=== PATIENT | male | born 1955 | race Caucasian/White ===

== ENCOUNTER 2016-12-10 15:44 | Outpatient (CLI) | payer MEDICAID ==
[2016-12-10 13:17] LABS: ALBUMIN/GLOBULIN RATIO 1.1 (1.0-2.2); BILIRUBIN,TOTAL 0.6 mg/dL (0.2-1.0); CALCIUM 9.3 mg/dL (8.5-10.3); POTASSIUM 5.1 mmol/L (3.5-5.0); TOTAL PROTEIN 6.8 g/dL (6.7-8.2)
[2016-12-10 14:56] LABS: HEMOGLOBIN A1C 2.33 g/dL
== END 2016-12-10 15:45 | disposition home or self-care (01) ==
LOC: LAB.N 15:44
PROVIDERS: ATTEND Nurse Practitioner Gerontology
DX: E11.9 Type 2 diabetes mellitus without complications (principal)
CPT/HCPCS: 36415; 80053; 83036

== ENCOUNTER 2017-03-11 08:00 | Outpatient (CLI) | payer MEDICAID ==
[2017-03-11 19:24] LABS: BASOPHILS # (AUTO) 0.1 10^3/uL (0.0-0.1); BASOPHILS % (AUTO) 1.2 %; EOSINOPHILS # (AUTO) 0.2 10^3/uL (0.0-0.7); EOSINOPHILS % (AUTO) 2.7 %; HGB - HEMOGLOBIN 15.1 g/dL (14.0-18.0); LYMPHOCYTES # (AUTO) 1.4 10^3/uL (1.5-3.5); LYMPHOCYTES % (AUTO) 24.3 %; MEAN CORPUSCULAR HEMOGLOBIN 31.7 pg (27.0-31.0); MEAN CORPUSCULAR HGB CONC 32.5 g/dL (32.0-36.0); MEAN CORPUSCULAR VOLUME 97.7 fL (80.0-94.0); MEAN PLATELET VOLUME 8.4 fL (7.4-11.4); MONOCYTES # (AUTO) 0.3 10^3/uL (0.0-1.0); MONOCYTES % (AUTO) 5.7 %; NEUTROPHILS # (AUTO) 3.8 10^3/uL (1.5-6.6); NEUTROPHILS % (AUTO) 66.1 %; PLT - PLATELET COUNT 287 10^3/uL (130-450); RED BLOOD COUNT 4.76 10^6/uL (4.70-6.10); WHITE BLOOD COUNT 5.7 x10^3/uL (4.8-10.8)
[2017-03-11 19:34] LABS: HB2 TOTAL 16.2 g/dL; HEMOGLOBIN A1C 1.27 g/dL; HEMOGLOBIN A1C % 9.3 % (4.6-6.2)
[2017-03-11 20:45] LABS: ALBUMIN/GLOBULIN RATIO 1.2 (1.0-2.2); ALKALINE PHOSPHATASE 66 IU/L (42-121); ALT ALANINE AMINOTRANSFERASE 20 IU/L (10-60); AST ASPARTATE AMINOTRANSFERASE 21 IU/L (10-42); BILIRUBIN,TOTAL 0.3 mg/dL (0.2-1.0); BUN - BLOOD UREA NITROGEN 14 mg/dL (6-20); CALCIUM 9.2 mg/dL (8.5-10.3); CARBON DIOXIDE - CO2 26 mmol/L (21-32); CHLORIDE 106 mmol/L (101-111); CHOL/HDL RATIO 2.5 (<5.0); CHOLESTEROL 160 mg/dL; CREATININE 0.8 mg/dL (0.6-1.2); GFR - MDRD 98 (>89); HDL CHOLESTEROL 63 mg/dL; LDL CHOLESTEROL,CALCULATED 86 mg/dL; LDL/HDL RATIO 1.4 (<3.6); SODIUM 138 mmol/L (135-145); TOTAL PROTEIN 7.3 g/dL (6.7-8.2); VLDL CHOLESTEROL 11 mg/dL
[2017-03-11 20:47] LABS: GLUCOSE 47 mg/dL (70-100)
== END 2017-03-11 08:01 | disposition home or self-care (01) ==
LOC: LAB.N 08:00
PROVIDERS: ATTEND Nurse Practitioner Gerontology
DX: I10 Essential (primary) hypertension (principal); E11.9 Type 2 diabetes mellitus without complications; E78.5 Hyperlipidemia, unspecified
CPT/HCPCS: 36415; 80050; 80061; 83036; 83721

== ENCOUNTER 2017-06-18 10:03 | Outpatient (CLI) | payer MEDICAID ==
[2017-06-18 13:36] LABS: HB2 TOTAL 16.8 g/dL; HEMOGLOBIN A1C 1.2 g/dL; HEMOGLOBIN A1C % 8.7 % (4.6-6.2)
== END 2017-06-18 10:04 | disposition home or self-care (01) ==
LOC: LAB.N 10:03
PROVIDERS: ATTEND Nurse Practitioner Gerontology
DX: E11.9 Type 2 diabetes mellitus without complications (principal)
CPT/HCPCS: 36415; 83036

== ENCOUNTER 2019-05-02 11:00 | Outpatient (CLI) | payer MEDICAID ==
[2019-05-02 18:42] LABS: BASOPHILS # (AUTO) 0.1 10^3/uL (0.0-0.1); BASOPHILS % (AUTO) 0.8 %; EOSINOPHILS # (AUTO) 0.3 10^3/uL (0.0-0.7); EOSINOPHILS % (AUTO) 3.3 %; HGB - HEMOGLOBIN 15.7 g/dL (14.0-18.0); LYMPHOCYTES # (AUTO) 1.9 10^3/uL (1.5-3.5); LYMPHOCYTES % (AUTO) 22.5 %; MEAN CORPUSCULAR HEMOGLOBIN 31.7 pg (27.0-31.0); MEAN CORPUSCULAR HGB CONC 32.5 g/dL (32.0-36.0); MEAN CORPUSCULAR VOLUME 97.6 fL (80.0-94.0); MEAN PLATELET VOLUME 9.6 fL (7.4-11.4); MONOCYTES # (AUTO) 0.6 10^3/uL (0.0-1.0); MONOCYTES % (AUTO) 6.7 %; NEUTROPHILS # (AUTO) 5.7 10^3/uL (1.5-6.6); NEUTROPHILS % (AUTO) 66.5 %; PLT - PLATELET COUNT 307 10^3/uL (130-450); RED BLOOD COUNT 4.95 10^6/uL (4.70-6.10); RED CELL DISTRIBUTION WIDTH 14.1 % (12.0-15.0); WHITE BLOOD COUNT 8.6 x10^3/uL (4.8-10.8)
[2019-05-02 19:16] LABS: ALBUMIN 4.2 g/dL (3.2-5.5); ALBUMIN/GLOBULIN RATIO 1.2 (1.0-2.2); BILIRUBIN,TOTAL 0.6 mg/dL (0.2-1.0); CALCIUM 9.3 mg/dL (8.5-10.3); CREATININE 0.7 mg/dL (0.6-1.2); TOTAL PROTEIN 7.6 g/dL (6.7-8.2)
[2019-05-02 19:18] LABS: HB2 TOTAL 16.7 g/dL; HEMOGLOBIN A1C 1.08 g/dL; HEMOGLOBIN A1C % 8.1 % (4.6-6.2)
== END 2019-05-02 23:59 | disposition home or self-care (01) ==
LOC: LAB.N 11:00
PROVIDERS: ATTEND Nurse Practitioner Gerontology
DX: I10 Essential (primary) hypertension (principal); E11.9 Type 2 diabetes mellitus without complications
CPT/HCPCS: 36415; 80053; 83036; 85025

== ENCOUNTER 2020-03-12 16:31 | Outpatient (CLI) | payer MEDICARE, MEDICAID | END 2020-03-12 16:32 | disposition critical access hospital (66) | LOC: EMS 16:31 | PROVIDERS: ATTEND Surgery | DX: F32.9 Major depressive disorder, single episode, unspecified (principal) | CPT/HCPCS: A0425; A0429 ==

== ENCOUNTER 2020-03-12 16:44 | Emergency (ER) | payer MEDICARE, MEDICAID ==
--- NOTE | 2020-03-12 17:03 | ED Physician Documentation ---
History of Present Illness - Stated complaint Stated Complaint: MHE - Chief complaint Chief Complaint: MHE - Additonal information Additional information: 64-year-old male was brought into the emergency department for thoughts of suicide. He reports to me that for the duration of the pandemic he has been socially isolated. He is also under the threat of eviction from his landlord. He was speaking with a traffic observer today and she asked him if he was in any danger of harming himself. He reports that he told her that about 2 weeks ago he considered hanging himself from a beam with a belt. She encouraged him to seek mental health services. He spoke with nursing staff at the [facility] and they called 911 thus he is transported here. He denies that he wants to harm himself right now but he is eager to get mental health support and services. He endorses daily cannabis use. He does have a longstanding history of depression however no hospitalizations. He was previously taking amitriptyline and buspirone but failed to get the meds refilled about 6 months ago. Patient does report to this provider history of diabetes. Previously on Lantus. He has not taken for about 6 months. He reports to me that he simply does not care anymore. Review of Systems Constitutional: reports: Reviewed and negative Eyes: reports: Reviewed and negative Ears: reports: Reviewed and negative Nose: reports: Reviewed and negative Throat: reports: Reviewed and negative Cardiac: reports: Reviewed and negative Respiratory: reports: Reviewed and negative GI: reports: Reviewed and negative : reports: Reviewed and negative Skin: reports: Reviewed and negative Musculoskeletal: reports: Reviewed and negative Neurologic: reports: Reviewed and negative Psychiatric: reports: Depressed, Suicidal, Anxiety. denies: Homicidal, Hallucinations, Delusions, Insomnia PD PAST MEDICAL HISTORY - Present Medications Home Medications: Ambulatory Orders Medication Instructions Recorded Confirmed No Known Home Medications 03/12/20 03/12/20 - Allergies Allergies/Adverse Reactions: Allergies Allergy/AdvReac Type Severity Reaction Status Date / Time No Known Drug Allergies Allergy Verified 03/12/20 16:56 PD ED PE EXPANDED - General General: Alert, No acute distress, Well developed/nourished - HEENT HEENT: Atraumatic, PERRL - Neck Neck: Supple w/out meningeal sx. No: Adenopathy - Cardiac Cardiac: Regular Rate, Regular Rhythm, Radial strong equal, Pedal strong equal, Cap refill < 2 sec - Respiratory Respiratory: Clear to ausultation anil. No: Distress, Labored - Abdomen Abdomen: Normal Bowel sounds. No: Tender to palpation - Derm Derm: Normal color, Warm and dry - Extremities Extremities: Normal. No: Deformity, Tenderness - Neuro Neuro: Alert and Oriented X 3, Nystagmus, Cerebellar nl, Normal gait, Normal finger nose. No: Confused, Disoriented, Weakness - GCS Eye Opening: Spontaneous Motor: Obeys Commands Verbal: Oriented Total: 15 - Psych Psych: Depressed, Anxious. No: Suicidal, Poor eye contact, Non verbal, Agitated, Combative Results - Vitals Vitals: Vital Signs - 24 hr 03/12/20 03/12/20 16:50 17:15 Temperature 36.4 C L Heart Rate 90 86 Respiratory 18 16 Rate Blood Pressure 170/100 H 169/97 H O2 Saturation 99 97 Oxygen O2 Source Room air - Labs Labs: Laboratory Tests 03/12/20 03/12/20 03/12/20 17:01 17:10 17:10 WBC 7.5 RBC 4.98 Hgb 16.0 Hct 48.3 MCV 97.0 H MCH 32.1 H MCHC 33.1 RDW 13.2 Plt Count 270 MPV 9.1 Neut # (Auto) 5.8 Lymph # (Auto) 1.1 L Garrard # (Auto) 0.5 Eos # (Auto) 0.1 Baso # (Auto) 0.1 Absolute Nucleated RBC 0.00 Nucleated RBC % 0.0 Sodium 137 Potassium 3.5 Chloride 100 L Carbon Dioxide 19 L Anion Gap 18.0 H BUN 10 Creatinine 0.8 Estimated GFR (MDRD) 97 Glucose 256 H Calcium 9.4 Total Bilirubin 1.7 H AST 13 ALT 13 Alkaline Phosphatase 77 Total Protein 7.3 Albumin 4.1 Globulin 3.2 Albumin/Globulin Ratio 1.3 Lipase 75 H TSH Urine Color YELLOW Urine Clarity CLEAR Urine pH 5.5 Ur Specific Syl[place] >=1.030 H Urine Protein 30 H Urine Glucose (UA) >=1000 H Urine Ketones >=80 H Urine Occult Blood TRACE-INTA Urine Nitrite NEGATIVE Urine Bilirubin NEGATIVE Urine Urobilinogen 0.2 (NORMAL) Ur Leukocyte Esterase NEGATIVE Urine RBC None Seen Urine WBC 0-3 Ur Squamous Epith Cells RARE Squamous Urine Bacteria Rare Urine Casts 0-2 Course Granular Ur Microscopic Review INDICATED Urine Culture Comments NOT INDICATED Salicylates < 6.0 Urine Opiates Screen NEGATIVE Ur Oxycodone Screen NEGATIVE Urine Methadone Screen NEGATIVE Ur Propoxyphene Screen NEGATIVE Acetaminophen < 10 L Ur Barbiturates Screen NEGATIVE Ur Tricyclics Screen NEGATIVE Ur Phencyclidine Scrn NEGATIVE Ur Amphetamine Screen NEGATIVE U Methamphetamines Scrn NEGATIVE U Benzodiazepines Scrn NEGATIVE Urine Cocaine Screen NEGATIVE U Cannabinoids Screen POSITIVE H Ethyl Alcohol < 5.0 03/12/20 17:10 WBC RBC Hgb Hct MCV MCH MCHC RDW Plt Count MPV Neut # (Auto) Lymph # (Auto) Garrard # (Auto) Eos # (Auto) Baso # (Auto) Absolute Nucleated RBC Nucleated RBC % Sodium Potassium Chloride Carbon Dioxide Anion Gap BUN Creatinine Estimated GFR (MDRD) Glucose Calcium Total Bilirubin AST ALT Alkaline Phosphatase Total Protein Albumin Globulin Albumin/Globulin Ratio Lipase TSH 2.03 Urine Color Urine Clarity Urine pH Ur Specific Syl[place] Urine Protein Urine Glucose (UA) Urine Ketones Urine Occult Blood Urine Nitrite Urine Bilirubin Urine Urobilinogen Ur Leukocyte Esterase Urine RBC Urine WBC Ur Squamous Epith Cells Urine Bacteria Urine Casts Ur Microscopic Review Urine Culture Comments Salicylates Urine Opiates Screen Ur Oxycodone Screen Urine Methadone Screen Ur Propoxyphene Screen Acetaminophen Ur Barbiturates Screen Ur Tricyclics Screen Ur Phencyclidine Scrn Ur Amphetamine Screen U Methamphetamines Scrn U Benzodiazepines Scrn Urine Cocaine Screen U Cannabinoids Screen Ethyl Alcohol - Rads (name of study) CXR Radiology: Final report received (no acute cardiopulmonary process) PD MEDICAL DECISION MAKING - ED course Complexity details: reviewed results, re-evaluated patient, considered differential, d/w patient ED course: 64-year-old male presents to the emergency department via EMS for evaluation of suicidal thoughts. He has been battling a landlord eviction issue during the course of the pandemic and told his traffic observer that a few weeks ago he considered hanging himself with a belt from a beam. At this current moment patient denies that he wants to harm himself but he is eager to seek mental health services. He does have a longstanding history of depression and was previously on buspirone and amitriptyline but has not taking them for nearly 6 months as he failed to get the medications refilled. Patient is also stopped taking his diabetes medications as he simply does not care anymore. 1750: Patient is medically cleared and I will asked for him to be seen by telepsych. I do appreciate the positive cannabis as well as the hyperglycemia. This is consistent with his reported cannabis use as well as the avoidance of diabetes medications. 1929: Telepsych has completed their evaluation. I have spoken with Dr. Bryant. He does not feel that the patient presents an immediate suicidal risk. Does not recommend inpatient psychiatric hospitalization the patient does not desire psychiatric hospitalization and for me easily contracts for safety. He Dr. Bryant feels that the patient would best be served by accessing therapy to discuss his long history of depression but he also would not recommend resuming the buspirone at this time. I discussed the telepsych recommendations with the patient and he at this time feels ready to go home. I did offer him to board overnight in the emergency department to speak with the social science teacher in the morning. The patient reports to me that he is without running water at his apartment but the patient does not want a wait overnight. He does feel hopeful that his legal services will be helpful and helping mitigate the eviction process and get running water back to his apartment. Patient will follow up with his primary care providers at the [facility] to resume his diabetes medications. Though he does have a blood glucose of 256 today he does not present with DKA symptoms. Departure - Departure Disposition: 01 Home, Self Care Clinical Impression: Depression Qualifiers: Depression Type: major depressive disorder Major depression recurrence: unspeci fied whether recurrent Active/Remission status: currently active Major depression episode severity: moderate Qualified Code(s): F32.1 - Major depressive disorder, single episode, moderate Condition: Stable Record reviewed to determine appropriate education?: Yes Instructions: ED Stress React, ED Depression Follow-Up: [facility] [Provider Group] Comments: [facility] continue to follow-up with your legal resources regarding your infection process. It is very important that you also speak with your primary care providers about resuming your diabetes medications. Please continue to discuss your concerns with your traffic observer. They likely have resources to help you with your eviction process If at any point you have a return of thoughts of self-harm or do not feel safe please call 911 or the National suicide prevention Lifeline. National Suicide Prevention Lifeline Talk therapy will go a long way at helping you manage yoru stress, anxiety and depression. But if you ever feel unsafe or think of harming yourself, please return to the ED immediately
[2020-03-12 17:07] LABS: MUDS CUTOFF CONCENTRATIONS CUTOFF CONC BELOW:
[2020-03-12 17:18] LABS: GLUCOSE, URINE (UA) >=1000 mg/dL (NEGATIVE); KETONES,URINE (UA) >=80 mg/dL (NEGATIVE); LEUKOCYTE ESTERASE, URINE NEGATIVE (NEGATIVE); NITRITE,URINE NEGATIVE (NEGATIVE); OCCULT BLOOD,URINE TRACE-INTA (NEGATIVE); PH,URINE 5.5 PH (5.0-7.5); PROTEIN,URINE 30 mg/dL (NEGATIVE); UROBILINOGEN,URINE 0.2 (NORMAL) E.U./dL (NORMAL)
[2020-03-12 17:21] LABS: BASOPHILS # (AUTO) 0.1 10^3/uL (0.0-0.1); BASOPHILS % (AUTO) 0.9 %; EOSINOPHILS # (AUTO) 0.1 10^3/uL (0.0-0.7); EOSINOPHILS % (AUTO) 0.7 %; LYMPHOCYTES # (AUTO) 1.1 10^3/uL (1.5-3.5); MEAN CORPUSCULAR HEMOGLOBIN 32.1 pg (27.0-31.0); MEAN CORPUSCULAR HGB CONC 33.1 g/dL (32.0-36.0); MEAN PLATELET VOLUME 9.1 fL (7.4-11.4); MONOCYTES # (AUTO) 0.5 10^3/uL (0.0-1.0); NEUTROPHILS # (AUTO) 5.8 10^3/uL (1.5-6.6); PLT - PLATELET COUNT 270 10^3/uL (130-450); RED BLOOD COUNT 4.98 10^6/uL (4.70-6.10); RED CELL DISTRIBUTION WIDTH 13.2 % (12.0-15.0); WHITE BLOOD COUNT 7.5 x10^3/uL (4.8-10.8)
[2020-03-12 17:22] LABS: CLARITY,URINE CLEAR (CLEAR)
[2020-03-12 17:25] LABS: BILIRUBIN,URINE NEGATIVE (NEGATIVE); ICTOTEST,URINE NEGATIVE
[2020-03-12 17:28] LABS: AMPHETAMINE SCREEN,URINE NEGATIVE (NEGATIVE); BENZODIAZEPINES SCREEN, URINE NEGATIVE (NEGATIVE); COCAINE SCREEN URINE NEGATIVE (NEGATIVE); METHADONE SCREEN, URINE NEGATIVE (NEGATIVE); METHAMPHETAMINES SCREEN, URINE NEGATIVE (NEGATIVE); OPIATE SCREEN, URINE NEGATIVE (NEGATIVE); OXYCODONE SCREEN, URINE NEGATIVE (NEGATIVE); PROPOXYPHENE SCREEN, URINE NEGATIVE (NEGATIVE); TRICYCLIC ANTIDEPRESSANT,URINE NEGATIVE (NEGATIVE)
[2020-03-12 17:35] LABS: BACTERIA,URINE Rare /HPF (None Seen); RBC,URINE None Seen /HPF (0-5); SQUAMOUS EPITHELIAL CELL,UR RARE Squamous (<= Few)
[2020-03-12 17:36] LABS: CASTS, URINE 0-2 Course Granular /LPF
[2020-03-12 17:37] LABS: ACETAMINOPHEN < 10 ug/mL (10-30); ALBUMIN 4.1 g/dL (3.2-5.5); ALBUMIN/GLOBULIN RATIO 1.3 (1.0-2.2); ALKALINE PHOSPHATASE 77 IU/L (42-121); ALT ALANINE AMINOTRANSFERASE 13 IU/L (10-60); AST ASPARTATE AMINOTRANSFERASE 13 IU/L (10-42); BILIRUBIN,TOTAL 1.7 mg/dL (0.2-1.0); BUN - BLOOD UREA NITROGEN 10 mg/dL (6-20); CALCIUM 9.4 mg/dL (8.5-10.3); CARBON DIOXIDE - CO2 19 mmol/L (21-32); CHLORIDE 100 mmol/L (101-111); CREATININE 0.8 mg/dL (0.6-1.2); GLUCOSE 256 mg/dL (70-100); LIPASE 75 U/L (22-51); SALICYLATE < 6.0 mg/dL; TOTAL PROTEIN 7.3 g/dL (6.7-8.2)
[2020-03-12 21:13] VITALS: BP 137/85
== END 2020-03-12 21:14 | disposition home or self-care (01) ==
LOC: EDUNIT# → ED 16:44
DX: R45.851 Suicidal ideations (principal); F33.1 Major depressive disorder, recurrent, moderate; E11.65 Type 2 diabetes mellitus with hyperglycemia; Z91.128 Patient's intentional underdosing of medication regimen for other reason
CPT/HCPCS: 36415; 80053; 81001; 83690; 84443; 85025; 99283; G0425; 80306; 80307; 80320; 80329; 81003; 87086

== ENCOUNTER 2020-05-08 08:00 | Outpatient (CLI) | payer MEDICARE, MEDICAID ==
[2020-05-08 12:16] LABS: CREATININE,URINE 75.6 mg/dL; MICROALBUM/CREATININE RATIO,UR 134.9 ug/mg (<30.0); MICROALBUMIN,URINE 10.2 mg/dL (0-300.0)
[2020-05-08 12:32] LABS: BASOPHILS % (AUTO) 0.6 %; EOSINOPHILS # (AUTO) 0.1 10^3/uL (0.0-0.7); HGB - HEMOGLOBIN 16.2 g/dL (14.0-18.0); LYMPHOCYTES # (AUTO) 1.3 10^3/uL (1.5-3.5); LYMPHOCYTES % (AUTO) 19.2 %; MEAN CORPUSCULAR HEMOGLOBIN 32.5 pg (27.0-31.0); MEAN CORPUSCULAR HGB CONC 33.1 g/dL (32.0-36.0); MEAN CORPUSCULAR VOLUME 98.2 fL (80.0-94.0); MONOCYTES # (AUTO) 0.6 10^3/uL (0.0-1.0); MONOCYTES % (AUTO) 7.9 %; NEUTROPHILS # (AUTO) 4.9 10^3/uL (1.5-6.6); NEUTROPHILS % (AUTO) 70.9 %; PLT - PLATELET COUNT 226 10^3/uL (130-450); RED BLOOD COUNT 4.99 10^6/uL (4.70-6.10); RED CELL DISTRIBUTION WIDTH 13.3 % (12.0-15.0)
[2020-05-08 12:38] LABS: ESTIMATED AVERAGE GLUCOSE 289 mg/dL (70-100); HEMOGLOBIN A1c% 11.7 % (4.27-6.07)
[2020-05-08 12:44] LABS: ALBUMIN 4.2 g/dL (3.2-5.5); ALBUMIN/GLOBULIN RATIO 1.4 (1.0-2.2); ALKALINE PHOSPHATASE 77 IU/L (42-121); ALT ALANINE AMINOTRANSFERASE 15 IU/L (10-60); AST ASPARTATE AMINOTRANSFERASE 15 IU/L (10-42); BILIRUBIN,TOTAL 0.9 mg/dL (0.2-1.0); BUN - BLOOD UREA NITROGEN 14 mg/dL (6-20); CALCIUM 9.5 mg/dL (8.5-10.3); CARBON DIOXIDE - CO2 26 mmol/L (21-32); CHLORIDE 95 mmol/L (101-111); CHOL/HDL RATIO 6.4 (<5.0); CHOLESTEROL 257 mg/dL; GFR - MDRD 75 (>89); GLUCOSE 303 mg/dL (70-100); HDL CHOLESTEROL 40 mg/dL; LDL CHOLESTEROL,CALCULATED 182 mg/dL; LDL/HDL RATIO 4.6 (<3.6); POTASSIUM 4.8 mmol/L (3.5-5.0); SODIUM 134 mmol/L (135-145); TOTAL PROTEIN 7.3 g/dL (6.7-8.2); TRIGLYCERIDES 173 mg/dL; VLDL CHOLESTEROL 35 mg/dL
[2020-05-08 12:47] LABS: THYROID STIMULATING HORMONE 2.64 uIU/mL (0.34-5.60)
== END 2020-05-08 23:59 | disposition home or self-care (01) ==
LOC: LAB.WCP 08:00
PROVIDERS: ATTEND Nurse Practitioner Family
DX: I10 Essential (primary) hypertension (principal); E11.9 Type 2 diabetes mellitus without complications; E78.5 Hyperlipidemia, unspecified; F41.9 Anxiety disorder, unspecified; F32.9 Major depressive disorder, single episode, unspecified
CPT/HCPCS: 36415; 80053; 80061; 82043; 82570; 83036; 83721; 84443; 85025

== ENCOUNTER 2020-09-02 09:46 | Emergency (ER) | payer MEDICARE, MEDICAID ==
[2020-09-02] MEDS: BUFFERED LIDOCAINE 10 ML SYRINGE IU ONE (11:18)
--- NOTE | 2020-09-02 11:59 | ED Physician Documentation ---
PD HPI SKIN - Stated complaint Stated Complaint: MALE - Chief complaint Chief Complaint: Wound - History obtained from History obtained from: Patient - Additional information Additional information: Patient comes emergency department chief complaint of gluteal abscess. He states he has had symptoms for about 3 days and the abscess is not yet draining. He states he has had many abscesses in the area before. No drug use. No fevers or chills. No other complaints at this time. Review of Systems Ten Systems: 10 systems reviewed and negative Constitutional: reports: Reviewed and negative Eyes: reports: Reviewed and negative Ears: reports: Reviewed and negative Nose: reports: Reviewed and negative Throat: reports: Reviewed and negative Cardiac: reports: Reviewed and negative Respiratory: reports: Reviewed and negative GI: reports: Reviewed and negative : reports: Reviewed and negative Skin: reports: Other (Abscess) Musculoskeletal: reports: Reviewed and negative Neurologic: reports: Reviewed and negative Psychiatric: reports: Reviewed and negative Endocrine: reports: Reviewed and negative Immunocompromised: reports: Reviewed and negative PD PAST MEDICAL HISTORY - Past Medical History Past Medical History: Yes Cardiovascular: Hypertension Respiratory: None Neuro: None Endocrine/Autoimmune: Type 2 diabetes GI: None : None HEENT: None Psych: Depression Musculoskeletal: None Derm: None - Past Surgical History Past Surgical History: Yes - Present Medications Home Medications: Ambulatory Orders Medication Instructions Recorded Confirmed Sulfamethox/Trimeth 800/160 1 each PO BID #14 tablet 09/02/20 [Bactrim Ds 800/160] - Allergies Allergies/Adverse Reactions: Allergies Allergy/AdvReac Type Severity Reaction Status Date / Time Tetracyclines Allergy Nausea Verified 09/02/20 09:49 - Social History Does the pt smoke?: Yes Smoking Status: Current every day smoker Does the pt drink ETOH?: Yes Does the pt have substance abuse?: Yes Substance Use and Type: Marijuana - Immunizations Immunizations are current?: Yes - POLST Patient has POLST: No PD ED PE NORMAL - Vitals Vital signs reviewed: Yes - General General: Alert and oriented X 3, No acute distress - HEENT HEENT: PERRL - Neck Neck: Supple, no meningeal sign - Respiratory Respiratory: No respiratory distress - Rectal Rectal: Other (6 cm diameter perianal abscess with fluctuance and point tenderness. No drainage.) - Derm Derm: Warm and dry - Extremities Extremities: No deformity - Neuro Neuro: Alert and oriented X 3 - Psych Psych: Normal mood, Normal affect Results - Vitals Vitals: Vital Signs - 24 hr 09/02/20 09:50 Temperature 36.3 C L Heart Rate 86 Respiratory 18 Rate Blood Pressure 174/85 H O2 Saturation 98 Oxygen O2 Source Room air Procedures - Abscess I&D (location) R buttock Preparation: Chlorhexadine, Lidocaine 1% Incision: Incised with scalpel, Purulent drainage, Irrigated, Packed Other: Pt tolerated well, Dressing applied, Antibiotic prescribed PD MEDICAL DECISION MAKING - ED course Complexity details: considered differential, d/w patient ED course: Patient was started on Bactrim in the emergency department. He was instructed regarding wound care and the need for packing change in 2 days and the usual indications for return. Departure - Departure Disposition: 01 Home, Self Care Clinical Impression: Abscess Condition: Stable Instructions: ED Abscess IandD Prescriptions: Sulfamethox/Trimeth 800/160 [Bactrim Ds 800/160] 1 each PO BID #14 tablet Comments: Please keep your wound clean and dry. You will need to see either your primary care physician or another medical professional to have your packing changed in 2 days. Please take the antibiotics as directed.
[2020-09-02] MEDS: SULFAMETH/TRIMETH DS 800/160 MG TABLET PO STA (12:16)
[2020-09-02 12:31] VITALS: BP 153/75
== END 2020-09-02 12:30 | disposition home or self-care (01) ==
LOC: ED 09:46
DX: L02.31 Cutaneous abscess of buttock (principal); F17.200 Nicotine dependence, unspecified, uncomplicated; I10 Essential (primary) hypertension; E11.9 Type 2 diabetes mellitus without complications
CPT/HCPCS: 10061; 99282; 99283; A9270

== ENCOUNTER 2020-09-10 10:05 | Outpatient (CLI) | payer MEDICARE, MEDICAID ==
[2020-09-10 13:20] LABS: ALBUMIN 4.1 g/dL (3.2-5.5); BILIRUBIN,DIRECT 0.1 mg/dL (0.1-0.5); BILIRUBIN,TOTAL 0.9 mg/dL (0.2-1.0); TOTAL PROTEIN 7.7 g/dL (6.7-8.2)
== END 2020-09-10 23:59 | disposition home or self-care (01) ==
LOC: LAB.WCP 10:05
PROVIDERS: ATTEND Psychiatry & Neurology Psychiatry
DX: Z79.899 Other long term (current) drug therapy (principal)
CPT/HCPCS: 36415; 80076

== ENCOUNTER 2020-09-12 08:49 | Outpatient (CLI) | payer MEDICARE, MEDICAID ==
[2020-09-12 12:11] LABS: ESTIMATED AVERAGE GLUCOSE 384 mg/dL (70-100)
== END 2020-09-12 23:59 | disposition home or self-care (01) ==
LOC: LAB.WCP 08:49
PROVIDERS: ATTEND Nurse Practitioner
DX: E11.9 Type 2 diabetes mellitus without complications (principal)
CPT/HCPCS: 36415; 83036

== ENCOUNTER 2020-12-26 08:00 | Outpatient (CLI) | payer MEDICARE, MEDICAID ==
[2020-12-26 18:21] LABS: ALBUMIN 4.1 g/dL (3.2-5.5); BILIRUBIN,DIRECT 0.1 mg/dL (0.1-0.5); BILIRUBIN,TOTAL 0.7 mg/dL (0.2-1.0)
[2020-12-26 19:52] LABS: ESTIMATED AVERAGE GLUCOSE 335 mg/dL (70-100); HEMOGLOBIN A1c% 13.3 % (4.27-6.07)
== END 2020-12-26 23:59 | disposition home or self-care (01) ==
LOC: LAB.WCP 08:00
PROVIDERS: ATTEND Psychiatry & Neurology Psychiatry
DX: Z79.899 Other long term (current) drug therapy (principal); E11.65 Type 2 diabetes mellitus with hyperglycemia
CPT/HCPCS: 36415; 80076; 81599; 83036

== ENCOUNTER 2021-02-07 01:42 | Outpatient (CLI) | payer MEDICARE, MEDICAID | END 2021-02-07 01:43 | disposition EMS.NT | LOC: EMS 01:42 | DX: F10.129 Alcohol abuse with intoxication, unspecified (principal); E11.65 Type 2 diabetes mellitus with hyperglycemia ==

== ENCOUNTER 2022-08-20 13:30 | Outpatient (CLI) | payer MEDICARE, MEDICAID | END 2022-08-20 23:59 | disposition critical access hospital (66) | LOC: EMS 13:30 | DX: E11.65 Type 2 diabetes mellitus with hyperglycemia (principal); R53.1 Weakness; Z91.141 Patient's other noncompliance with medication regimen due to financial hardship | CPT/HCPCS: A0425; A0427 ==

== ENCOUNTER 2022-08-20 13:51 | Inpatient (IN) | payer MEDICARE, MEDICAID ==
--- NOTE | 2022-08-20 14:05 | ED Physician Documentation ---
History of Present Illness - Stated complaint Stated Complaint: ELEVATED BS - Chief complaint Chief Complaint: General - Additonal information Additional information: 67-year-old male was brought to the emergency department via EMS for evaluation of elevated blood glucose and increasing falls as well as a perineal abscess. The patient states that for about the last 18 months he has been unable to afford his insulin or any of his antidepressants and thus he has not taken them. He has found that over the last several months he has been having increasing difficulty with balance and has fallen though not hit his head. He also states that about a week and a half ago he began noticing that he is developing a new gluteal/perineal abscess where he has had them before. For EMS he was normotensive without tachycardia or fever. His blood glucose was 308. he received about 650 ml of saline enroute to the ED On presentation the patient is alert. He appears very disheveled with poor hygiene. He states that he thinks about a year ago he developed COVID and has lost his sense of taste and smell thus he does not eat much anymore. Review of Systems Constitutional: denies: Fever Cardiac: reports: Reviewed and negative Respiratory: reports: Reviewed and negative GI: reports: Reviewed and negative : reports: Reviewed and negative Skin: reports: Lesions Musculoskeletal: reports: Reviewed and negative Neurologic: reports: Generalized weakness. denies: Confused, Headache, Head injury, LOC Psychiatric: reports: Depressed. denies: Suicidal PD PAST MEDICAL HISTORY - Past Medical History Cardiovascular: Hypertension Respiratory: None Neuro: None Endocrine/Autoimmune: Type 2 diabetes GI: None : None HEENT: None Psych: Depression Musculoskeletal: None Derm: None - Past Surgical History Past Surgical History: Yes - Present Medications Home Medications: Ambulatory Orders Medication Instructions Recorded Confirmed Sulfamethox/Trimeth 800/160 1 each PO BID #14 tablet 09/02/20 [Bactrim Ds 800/160] - Allergies Allergies/Adverse Reactions: Allergies Allergy/AdvReac Type Severity Reaction Status Date / Time Tetracyclines Allergy Nausea Verified 09/02/20 09:49 - Social History Does the pt smoke?: Yes Smoking Status: Current every day smoker Does the pt drink ETOH?: Yes Does the pt have substance abuse?: Yes - Immunizations Immunizations are current?: Yes - POLST Patient has POLST: No PD ED PE NORMAL - General General: Alert and oriented X 3. No: No acute distress, Well developed/abdifatah shed (Thin, cachectic appearance. Appears much older than stated age. Very poor hygiene.) - HEENT HEENT: Moist mucous membranes, Pharynx benign - Cardiac Cardiac: RRR, No murmur - Respiratory Respiratory: No respiratory distress, Clear bilaterally - Abdomen Abdomen: Normal bowel sounds, Soft - Derm Derm: Normal color, Warm and dry, No rash - Extremities Extremities: No deformity - Neuro Neuro: Alert and oriented X 3, clinical dermatologist 2-12 intact, No motor deficit, No sensory deficit, Normal speech Eye Opening: Spontaneous Motor: Obeys Commands Verbal: Oriented GCS Score: 15 Results - Vitals Vitals: Vital Signs - 24 hr 08/20/22 08/20/22 13:52 16:30 Temperature 36.6 C Heart Rate 79 76 Respiratory 20 16 Rate Blood Pressure 149/85 H 154/91 H O2 Saturation 99 97 Oxygen O2 Source Room air - Labs Labs: Laboratory Tests 08/20/22 08/20/22 08/20/22 14:13 14:13 14:13 WBC 8.2 RBC 4.52 L Hgb 14.4 Hct 43.9 MCV 97.1 H MCH 31.9 H MCHC 32.8 RDW 13.5 Plt Count 284 MPV 9.0 Neut # (Auto) 6.5 Lymph # (Auto) 1.0 L Imperial # (Auto) 0.5 Eos # (Auto) 0.2 Baso # (Auto) 0.1 Absolute Nucleated RBC 0.00 Nucleated RBC % 0.0 Sodium 138 Potassium 3.9 Chloride 100 L Carbon Dioxide 23 Anion Gap 15.0 H BUN 12 Creatinine 0.8 Estimated GFR (MDRD) 96 Glucose 316 H POC Whole Bld Glucose Lactic Acid 1.3 Calcium 8.7 Total Bilirubin 1.3 H AST 11 ALT 13 Alkaline Phosphatase 87 Total Protein 6.8 Albumin 3.2 Globulin 3.6 Albumin/Globulin Ratio 0.9 L Lipase 27 TSH Urine Color Urine Clarity Urine pH Ur Specific Gro[place] Urine Protein Urine Glucose (UA) Urine Ketones Urine Occult Blood Urine Nitrite Urine Bilirubin Urine Urobilinogen Ur Leukocyte Esterase Urine RBC Urine WBC Ur Squamous Epith Cells Urine Bacteria Urine Casts Ur Microscopic Review Urine Culture Comments Serum Ketones SMALL H 08/20/22 08/20/22 08/20/22 14:13 14:35 15:22 WBC RBC Hgb Hct MCV MCH MCHC RDW Plt Count MPV Neut # (Auto) Lymph # (Auto) Imperial # (Auto) Eos # (Auto) Baso # (Auto) Absolute Nucleated RBC Nucleated RBC % Sodium Potassium Chloride Carbon Dioxide Anion Gap BUN Creatinine Estimated GFR (MDRD) Glucose POC Whole Bld Glucose 250 H Lactic Acid Calcium Total Bilirubin AST ALT Alkaline Phosphatase Total Protein Albumin Globulin Albumin/Globulin Ratio Lipase TSH 2.00 Urine Color YELLOW Urine Clarity CLEAR Urine pH 5.5 Ur Specific [place] 1.020 Urine Protein 30 H Urine Glucose (UA) >=1000 H Urine Ketones 40 H Urine Occult Blood NEGATIVE Urine Nitrite NEGATIVE Urine Bilirubin NEGATIVE Urine Urobilinogen 0.2 (NORMAL) Ur Leukocyte Esterase NEGATIVE Urine RBC None Seen Urine WBC 0-3 Ur Squamous Epith Cells FEW Squamous Urine Bacteria Few Urine Casts 0-2 Hyaline Casts Ur Microscopic Review INDICATED Urine Culture Comments NOT INDICATED Serum Ketones 08/20/22 16:12 WBC RBC Hgb Hct MCV MCH MCHC RDW Plt Count MPV Neut # (Auto) Lymph # (Auto) [place] # (Auto) Eos # (Auto) Baso # (Auto) Absolute Nucleated RBC Nucleated RBC % Sodium 137 Potassium 3.9 Chloride 102 Carbon Dioxide 26 Anion Gap 9.0 BUN 13 Creatinine 0.7 Estimated GFR (MDRD) 112 Glucose 190 H POC Whole Bld Glucose Lactic Acid Calcium 8.3 L Total Bilirubin AST ALT Alkaline Phosphatase Total Protein Albumin Globulin Albumin/Globulin Ratio Lipase TSH Urine Color Urine Clarity Urine pH Ur Specific [place] Urine Protein Urine Glucose (UA) Urine Ketones Urine Occult Blood Urine Nitrite Urine Bilirubin Urine Urobilinogen Ur Leukocyte Esterase Urine RBC Urine WBC Ur Squamous Epith Cells Urine Bacteria Urine Casts Ur Microscopic Review Urine Culture Comments Serum Ketones SMALL H - Rads (name of study) cxr Relevant Findings:: EMP independent interpretation of test (No acute cardiopulmonary process) CT head Relevant Findings:: Final report received (No acute intracranial pathology) CT abd Relevant Findings:: Final report received (Large left perianal abscess. Diverticulosis without evidence of diverticulitis) PD Medical Decision Making - ED course Complexity details: reviewed results, re-evaluated patient, considered differential, d/w patient ED course: 67-year-old male who has a history of insulin-dependent type 2 diabetes presents to the emergency department for increasingly feeling unwell. He has had increased falls recently. Also has begun to develop a recurrent perineal abscess that he has had in the past. He states that due to anxiety, isolation and depression he has been unable to fill his insulin For the last 18 months. On presentation to the emergency department he was alert and nonfocal. He appeared however very disheveled, thin and cachectic. I did obtain CBC, electrolytes as well as ketones. His blood glucose is mildly elevated at 316. He does have a small amount of serum ketones. He did have a mildly elevated anion gap making the concern for DKA present. Given this finding the patient was administered a liter of fluid here in the emergency department and given a normal potassium also then administered 5 units of regular insulin for suspicion of mild DKA. On repeat he continues to have mild ketones but his blood glucose is improving. His gap has closed. Unfortunately however he has a rather large 4 x 3 cm perineal abscess seen on CT scan. This finding was discussed with Dr. Corona surgeon on-call. Given that this patient has a recurrent perineal abscess, he is a noncompliant and uncontrolled diabetic with small amount of ketones in DKA Dr. Corona will come to the bedside to drain the abscess but the patient will be admitted to our hospitalist service for further evaluation and management of his diabetes. I have ordered Zosyn for management of the perineal abscess. I have spoken with Dr. Leach who is graciously agreed to admit the patient. Patient is in agreement to come in to [facility] for further evaluation and management of his DKA and perineal abscess Departure - Departure Disposition: 66 [facility] DC/Xfer Clinical Impression: Perineal abscess DKA (diabetic ketoacidosis) Qualifiers: Diabetes mellitus type: type 2 Diabetes mellitus complication detail: without coma Qualified Code(s): E11.10 - Type 2 diabetes mellitus with ketoacidosis without coma
[2022-08-20] MEDS ORDERED: SODIUM CHLORIDE 0.9% 1,000 ML IV STA (14:08)
[2022-08-20 14:18] LABS: BASOPHILS # (AUTO) 0.1 10^3/uL (0.0-0.1); EOSINOPHILS # (AUTO) 0.2 10^3/uL (0.0-0.7); EOSINOPHILS % (AUTO) 2.4 %; HCT - HEMATOCRIT 43.9 % (42.0-52.0); HGB - HEMOGLOBIN 14.4 g/dL (14.0-18.0); LYMPHOCYTES % (AUTO) 11.9 %; MEAN CORPUSCULAR HEMOGLOBIN 31.9 pg (27.0-31.0); MEAN CORPUSCULAR HGB CONC 32.8 g/dL (32.0-36.0); MEAN CORPUSCULAR VOLUME 97.1 fL (80.0-94.0); MONOCYTES # (AUTO) 0.5 10^3/uL (0.0-1.0); MONOCYTES % (AUTO) 5.6 %; NEUTROPHILS # (AUTO) 6.5 10^3/uL (1.5-6.6); NEUTROPHILS % (AUTO) 78.6 %; PLT - PLATELET COUNT 284 10^3/uL (130-450); RED BLOOD COUNT 4.52 10^6/uL (4.70-6.10); RED CELL DISTRIBUTION WIDTH 13.5 % (12.0-15.0); WHITE BLOOD COUNT 8.2 x10^3/uL (4.8-10.8)
[2022-08-20 14:26] LABS: KETONES, SERUM (ACETEST) SMALL (NEGATIVE)
[2022-08-20 14:38] LABS: ALBUMIN 3.2 g/dL (3.2-5.5); ALBUMIN/GLOBULIN RATIO 0.9 (1.0-2.2); ALKALINE PHOSPHATASE 87 IU/L (42-121); ALT ALANINE AMINOTRANSFERASE 13 IU/L (10-60); AST ASPARTATE AMINOTRANSFERASE 11 IU/L (10-42); BILIRUBIN,TOTAL 1.3 mg/dL (0.2-1.0); BUN - BLOOD UREA NITROGEN 12 mg/dL (6-20); CALCIUM 8.7 mg/dL (8.5-10.3); CARBON DIOXIDE - CO2 23 mmol/L (21-32); CHLORIDE 100 mmol/L (101-111); CREATININE 0.8 mg/dL (0.6-1.2); GFR - MDRD 96 (>89); GLUCOSE 316 mg/dL (70-100); LIPASE 27 U/L (22-51); POTASSIUM 3.9 mmol/L (3.5-5.0); SODIUM 138 mmol/L (135-145); TOTAL PROTEIN 6.8 g/dL (6.7-8.2)
[2022-08-20] MEDS ORDERED: INSULIN REGULAR HUMAN 300 UNIT/3 ML VIAL IVP STA (14:41)
[2022-08-20 14:46] LABS: GLUCOSE, URINE (UA) >=1000 mg/dL (NEGATIVE); KETONES,URINE (UA) 40 mg/dL (NEGATIVE); LEUKOCYTE ESTERASE, URINE NEGATIVE (NEGATIVE); NITRITE,URINE NEGATIVE (NEGATIVE); OCCULT BLOOD,URINE NEGATIVE (NEGATIVE); PH,URINE 5.5 PH (5.0-7.5); PROTEIN,URINE 30 mg/dL (NEGATIVE); UROBILINOGEN,URINE 0.2 (NORMAL) E.U./dL (NORMAL)
[2022-08-20 14:47] LABS: CLARITY,URINE CLEAR (CLEAR)
[2022-08-20] MEDS ORDERED: iohexoL-300 100 ML VIAL ONE (14:48)
[2022-08-20 14:49] LABS: BILIRUBIN,URINE NEGATIVE (NEGATIVE); ICTOTEST,URINE NEGATIVE
--- NOTE | 2022-08-20 14:52 | XRAY Report ---
PROCEDURE: Chest 1 View X-Ray INDICATIONS: chest pain TECHNIQUE: One view of the chest was acquired. COMPARISON: None. FINDINGS: Surgical changes and devices: None. Lungs and pleura: No pleural effusions or pneumothorax. Lungs are clear. Mediastinum: Mediastinal contours appear normal. Heart size is normal. Bones and chest wall: No suspicious bony lesions. Overlying soft tissues appear unremarkable. IMPRESSION: No acute cardiopulmonary process. Reviewed by: Joseph Schwarz MD on 08/20/2022 2:51 PM PDT Approved by: Joseph Schwarz MD on 08/20/2022 2:51 PM PDT Station ID: [id number]
[2022-08-20 14:58] LABS: BACTERIA,URINE Few /HPF (None Seen); RBC,URINE None Seen /HPF (0-5); SQUAMOUS EPITHELIAL CELL,UR FEW Squamous (<= Few); WBC,URINE 0-3 /HPF (0-3)
[2022-08-20 14:59] LABS: CASTS, URINE 0-2 Hyaline Casts /LPF
--- NOTE | 2022-08-20 15:42 | CT Report ---
PROCEDURE: HEAD WO INDICATIONS: increasing falls TECHNIQUE: Noncontrast 4.5 mm thick angled axial sections acquired from the foramen magnum to the vertex. For r adiation dose reduction, the following was used: automated exposure control, adjustment of mA and/or kV according to patient size. COMPARISON: None. FINDINGS: Image quality: Excellent. CSF spaces: Basal cisterns are patent. No extra-axial fluid collections. Ventricles are normal in size and shape. Brain: No midline shift. No intracranial masses or hemorrhage. Reese-white matter interface is norm al. Intracranial carotid calcifications. Skull and face: Calvarium and visualized facial bones are intact, without suspicious lesions. Sinuses: Visualized sinuses and mastoids are clear. IMPRESSION: No acute intracranial pathology Reviewed by: Ernesto Daniels MD on 08/20/2022 3:41 PM PDT Approved by: Ernesto Daniels MD on 08/20/2022 3:41 PM PDT Station ID: [id number]
--- NOTE | 2022-08-20 15:50 | CT Report ---
PROCEDURE: ABDOMEN/PELVIS W INDICATIONS: Perineal abscess. weight loss CONTRAST: 100mL Omni 300 TECHNIQUE: After the administration of intravenous contrast, 5 mm thick sections acquired from the diaphragms to the symphysis. 5 mm thick coronal and sagittal reformats were acquired. For radiation dose reducti on, the following was used: automated exposure control, adjustment of mA and/or kV according to taryn ent size. COMPARISON: None FINDINGS: Image quality: Excellent. Lung bases and heart: Unremarkable. Liver: No solid mass. Gallbladder and biliary tree: No radiopaque stones or wall thickening. No biliary dilation. Spleen: No splenomegaly. Splenic calcifications are consistent with chronic granulomatous disease. Pancreas: No pancreatic ductal dilation. Adrenals: No adrenal nodule. Kidneys and ureters: No hydronephrosis. No renal cystic lesion which requires follow up. No solid mas s. Bowel and peritoneum: No bowel distension. No pathologic free fluid. Diverticulosis without evidence of diverticulitis. Lymph nodes: No central or retroperitoneal adenopathy. Vessels: No infrarenal aortic aneurysm. Aortic atherosclerotic calcifications and soft plaque without stenosis. PELVIS Reproductive organs: Unremarkable. Bladder: No abnormal wall thickening, accounting for underdistension. Pelvic lymph nodes: No pelvic adenopathy by size criteria. Bones: No aggressive osseous abnormality. Other: Large left perianal abscess measuring 5.0 x 2.9 x 4.3 cm. IMPRESSION: 1. Large left perianal abscess. 2. Diverticulosis without evidence of diverticulitis. Reviewed by: Ernesto Daniels MD on 08/20/2022 3:49 PM PDT Approved by: Ernesto Daniels MD on 08/20/2022 3:49 PM PDT Station ID: [id number]
[2022-08-20] MEDS ORDERED: PIPERACILLIN/TAZOBACTAM 3.375 GM in SODIUM CHLORIDE 0.9% MINIBAG 100 ML IV STA (16:15)
[2022-08-20 16:21] LABS: KETONES, SERUM (ACETEST) SMALL (NEGATIVE)
[2022-08-20 16:25] LABS: BUN - BLOOD UREA NITROGEN 13 mg/dL (6-20); CALCIUM 8.3 mg/dL (8.5-10.3); CARBON DIOXIDE - CO2 26 mmol/L (21-32); CHLORIDE 102 mmol/L (101-111); CREATININE 0.7 mg/dL (0.6-1.2); GFR - MDRD 112 (>89); GLUCOSE 190 mg/dL (70-100); POTASSIUM 3.9 mmol/L (3.5-5.0); SODIUM 137 mmol/L (135-145)
[2022-08-20] MEDS ORDERED: lidocaine 1% 20 ML MDV SUBQ ONE (16:50)
[2022-08-20] MEDS ORDERED: BUPIVACAINE 0.25% PF 30 ML VIAL SUBQ STA (16:51)
[2022-08-20] MEDS ORDERED: lidocaine 1% 20 ML MDV ONE (16:58)
[2022-08-20] MEDS ORDERED: LIDOCAINE 1%-EPI 1:100000 20 ML MDV SUBQ ONE (17:00)
--- NOTE | 2022-08-20 17:34 | CONSULTATION NOTE ---
Referring Provider Consult Date: 08/20/22 Chief Complaint - Chief Complaint Chief Complaint: buttock pain and swelling few days History of Present Illness - History Obtained From Records Reviewed: yes History obtained from: pt Exam Limitations: none - History of Present Illness HPI Comment/Other: history of perianal abscess several times over many years. always heals with no signs or symptoms of a fistula tract. he was well until recently when developed an abscess left anterior perianal area History - Past Medical History Cardiovascular: reports: Hypertension Respiratory: reports: None Neuro: reports: None Endocrine/Autoimmune: reports: Type 2 diabetes GI: reports: None : reports: None HEENT: reports: None Psych: reports: Depression Musculoskeletal: reports: None Derm: reports: None MRSA Hx?: No - POLST Patient has POLST: No Meds/Allgy - Home Medications Home Medications: Ambulatory Orders Medication Instructions Recorded Confirmed Sulfamethox/Trimeth 800/160 1 each PO BID #14 tablet 09/02/20 [Bactrim Ds 800/160] - Allergies Allergies/Adverse Reactions: Allergies Allergy/AdvReac Type Severity Reaction Status Date / Time Tetracyclines Allergy Nausea Verified 09/02/20 09:49 Review of Systems - Other Findings Other Findings: admits to poorly controlled dm and weight loss 10 pt ros as above otherwise unremarkable Exam - Vital Signs Vital Signs: Vital Signs x48h Temp Pulse Resp BP Pulse Ox 08/20/22 16:30 76 16 154/91 H 97 08/20/22 13:52 36.6 C 79 20 149/85 H 99 - Physical Exam General Appearance: positive: No acute distress, Alert Eyes Bilateral: positive: PERRL, EOMI, No scleral icterus ENT: positive: No signs of dehydration Neck: positive: No JVD, Trachea midline Respiratory: positive: No respiratory distress Cardiovascular: positive: Regular rate & rhythm Abdomen: positive: Non-tender, No distention Rectal: positive: Other (3 x 4 cm left anterior perianal abscess) Neurologic/Psychiatric: positive: Oriented x3 Comments/Other: very pleasant Conclusion and Plan - Lab Results Laboratory Results 08/20/22 16:12: Sodium 137, Potassium 3.9, Chloride 102, Carbon Dioxide 26, Anion Gap 9.0, BUN 13, Creatinine 0.7, Estimated GFR (MDRD) 112, Glucose 190 H, Calcium 8.3 L, Serum Ketones SMALL H 08/20/22 15:22: POC Whole Bld Glucose 250 H 08/20/22 14:35: Urine Color YELLOW, Urine Clarity CLEAR, Urine pH 5.5, Ur Specific [place] 1.020, Urine Protein 30 H, Urine Glucose (UA) >=1000 H, Urine Ketones 40 H, Urine Occult Blood NEGATIVE, Urine Nitrite NEGATIVE, Urine Bilirubin NEGATIVE, Urine Urobilinogen 0.2 (NORMAL), Ur Leukocyte Esterase NEGATIVE, Urine RBC None Seen, Urine WBC 0-3, Ur Squamous Epith Cells FEW Squamous, Urine Bacteria Few, Urine Casts 0-2 Hyaline Casts, Ur Microscopic Review INDICATED, Urine Culture Comments NOT INDICATED 08/20/22 14:13: TSH 2.00 08/20/22 14:13: Lactic Acid 1.3 08/20/22 14:13: Sodium 138, Potassium 3.9, Chloride 100 L, Carbon Dioxide 23, Anion Gap 15.0 H, BUN 12, Creatinine 0.8, Estimated GFR (MDRD) 96, Glucose 316 H, Calcium 8.7, Total Bilirubin 1.3 H, AST 11, ALT 13, Alkaline Phosphatase 87, Total Protein 6.8, Albumin 3.2, Globulin 3.6, Albumin/Globulin Ratio 0.9 L, Lipase 27, Serum Ketones SMALL H 08/20/22 14:13: WBC 8.2, RBC 4.52 L, Hgb 14.4, Hct 43.9, MCV 97.1 H, MCH 31.9 H, MCHC 32.8, RDW 13.5, Plt Count 284, MPV 9.0, Neut # (Auto) 6.5, Lymph # (Auto) 1.0 L, [place] # (Auto) 0.5, Eos # (Auto) 0.2, Baso # (Auto) 0.1, Absolute Nucleated RBC 0.00, Nucleated RBC % 0.0 - Consultation Note Consultation Note: perianal abscess after parq and consent the abscess is completely drained local anesthesia and sterile technique. 2.5 cm incision. lightly packed. well tolerated
[2022-08-20] MEDS ORDERED: ONDANSETRON 4 MG/2 ML VIAL IVP PRN (18:47)
[2022-08-20] MEDS ORDERED: SODIUM CHLORIDE FLUSH 0.9% 10 ML SYRINGE IVP PRN (18:47)
[2022-08-20] MEDS ORDERED: ACETAMINOPHEN 325 MG TABLET PO PRN (18:51)
--- NOTE | 2022-08-20 18:58 | HISTORY & PHYSICAL EXAMINATION ---
Chief Complaint - Chief Complaint Chief Complaint: Abscess in rectum, high glucose History of Present Illness - Admitted From Admitted From:: ED - History Obtained From History obtained from: ED provider in the pt - History of Present Illness HPI Comment/Other: This is a 67-year-old male with a history of insulin-dependent diabetes. He admits he has not been taking insulin for 18 months for various reasons: because he caught COVID and was isolated, and because of admittedly being depressed. He has had a history of prior anal abscesses that have been treated and healed without complications. The patient developed swelling in the perianal area and noted that his glucose was elevated and came to the ER today. Work-up shows that he has a glucose of 316, positive serum ketones, elevated anion gap of [address] abdomen/pelvis shows that he has a 4 cm x 3 cm perianal abscess. He denied a fever. His white blood count and Lactic Acid levele were normal. The General Surgeon was contacted who saw him in consult and performed incision and drainage of the abscess in the ED under anesthesia. The wound was packed. The patient had blood cultures sent off and was started on Insulin, IV fluids and IV Zosyn. The ED provider reached out to me on the Hospitalist team and we spoke about this patient. He will be admitted to the hospital to manage DKA, perianal abscess, and medication noncompliance with poor personal hygiene and emaciation, consistent with major depression. 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 He drives a car. He walks daily. He does not smoke cigarettes. He drinks beer rarely. There is a remote history of alcohol abuse. He smokes pot frequently. He denies illicit drug use. - Substance History Use: Uses substance without health or social issues: NONE - POLST Patient has POLST: No Meds/Allgy - Home Medications Home Medications: Ambulatory Orders Medication Instructions Recorded Confirmed Sulfamethox/Trimeth 800/160 1 each PO BID #14 tablet 09/02/20 [Bactrim Ds 800/160] - Allergies Allergies/Adverse Reactions: Allergies Allergy/AdvReac Type Severity Reaction Status Date / Time Tetracyclines Allergy Nausea Verified 09/02/20 09:49 Review of Systems - Constitutional Constitutional: reports: Weight loss, Other (He stopped using his antidepressants because they gave him nightmares) - Gastrointestinal Gastrointestinal: reports: Poor appetite - All Other Systems All Other Systems: reports: Reviewed and negative Exam - Vital Signs Reviewed Vital Signs: Yes Vital Signs: Vital Signs x48h Temp Pulse Resp BP Pulse Ox 08/20/22 16:30 76 16 154/91 H 97 08/20/22 13:52 36.6 C 79 20 149/85 H 99 - Physical Exam General Appearance: positive: No acute distress, Other (Cachectic and disheveled with long hair and long nelson, appears older than his stated age) Eyes Bilateral: positive: Normal inspection, EOMI ENT: positive: Other (Has partial upper and lower dentures in place) Neck: positive: Nml inspection, No JVD Respiratory: positive: No respiratory distress, Breath sounds nml, Other (Thin chest with prominent rib) Cardiovascular: positive: Regular rate & rhythm, No murmur Abdomen: positive: Non-tender, Nml bowel sounds, No distention Rectal: positive: Other (Has packing and bandage on it) Skin: positive: Warm, Dry Extremities: positive: Non-tender, No pedal edema Neurologic/Psychiatric: positive: Oriented x3, Motor nml Conclusion/Plan - Problem List (1) Type 2 diabetes mellitus with ketoacidosis without coma Conclusion/Plan: The patient admitted he has not taken insulin for 18 months. It is not known if he follows a diabetic diet however he did state that he was overall not eating. He is emaciated and poorly kempt. Today his lab work shows that he has positive serum ketones and has elevated AG of 15 and his glucoses are running in the low 200 Possibly the rectal abscess has now pushed him into DKA Plan: I will admit the patient to the ICU on telemetry Start DKA protocol with IV insulin drip. Give IV fluids with NS and containing D5 since his glucoses are already near 200 and containg KCl since the K will drop with Insulin treatment Follow electrolytes, glucose and ketones. Continue the insulin drip until serum ketones are negative. Start a diabetic diet (2) Perianal abscess Conclusion/Plan: He has had this before, as per history. CT abdomen/pelvis did not show any fistulas or other findings within the peritoneum Dr. Corona of General Surgery drained it today in the ER, has packed it. Plan: Await blood cultureresults that were drawn in the ER before the debridement I will order a culture from the wound I will give empiric antibiotics in acute including IV Vanco to cover possible MRSA and continue with IV Zosyn Await culture results to tailor antibiotics (3) DM type 2 (diabetes mellitus, type 2) Conclusion/Plan: As per history. Plan: Continue management for DKA and then will transition to oral meds plus insulin again. Nutrition consult for diabetic teaching Check A1c (4) Noncompliance with diabetes treatment Conclusion/Plan: Patient admitted he has not been on his insulin diabetic management for 18 month s Plan: Because there is suspicion that he is severely depressed, we will request social work to see him (5) Poor personal hygiene Conclusion/Plan: The patient is disheveled and poorly kempt. He is cachectic and admitted to taking an nearly no diet. It is not known how much weight he has lost over the past year or 2. Plan: Nutrition consult ordered A shower and overall nursing care to be started Because of poor personal hygiene, depression is suspected. I will request social work consult to determine if he has major depression (6) Cachexia Conclusion/Plan: This patient's BMI is 16.4. Plan: We will order social work consult and nutrition consult - Lab Results Fish Bones: 08/21/22 03:25 08/21/22 03:25 - Other Other Results/Comments: Attestation: The patient is expected to require hospitalization longer than 2 midnights and is expected to be discharged or transferred to another facility within 96 hours: Yes
[2022-08-20] MEDS ORDERED: INSULIN REGULAR IN 0.9 % NS 100 UNIT/100 ML BAG IV SCH (19:00)
[2022-08-20] MEDS ORDERED: DEXTROSE 5%-0.9% NACL 1,000 ML IV SCH (19:00)
[2022-08-20 19:16] LABS: MAGNESIUM 1.7 mg/dL (1.7-2.8)
[2022-08-20 19:36] LABS: BUN - BLOOD UREA NITROGEN 11 mg/dL (6-20); CALCIUM 8.7 mg/dL (8.5-10.3); CARBON DIOXIDE - CO2 22 mmol/L (21-32); CHLORIDE 101 mmol/L (101-111); CREATININE 0.7 mg/dL (0.6-1.2); GFR - MDRD 112 (>89); GLUCOSE 183 mg/dL (70-100); MAGNESIUM 1.8 mg/dL (1.7-2.8); POTASSIUM 3.6 mmol/L (3.5-5.0); SODIUM 138 mmol/L (135-145)
[2022-08-20 19:37] LABS: KETONES, SERUM (ACETEST) SMALL (NEGATIVE)
[2022-08-20] MEDS ORDERED: iohexoL-300 100 ML VIAL IVP ONE (19:53)
[2022-08-20] MEDS ORDERED: VANCOMYCIN INJ 1.25 GM in SODIUM CHLORIDE 0.9% 250 ML IV ONE (20:00)
[2022-08-20 20:04] LABS: KETONES, SERUM (ACETEST) SMALL (NEGATIVE)
[2022-08-20 20:07] LABS: BUN - BLOOD UREA NITROGEN 11 mg/dL (6-20); CALCIUM 8.5 mg/dL (8.5-10.3); CARBON DIOXIDE - CO2 23 mmol/L (21-32); CHLORIDE 101 mmol/L (101-111); CREATININE 0.7 mg/dL (0.6-1.2); GFR - MDRD 112 (>89); GLUCOSE 186 mg/dL (70-100); MAGNESIUM 1.7 mg/dL (1.7-2.8); POTASSIUM 3.6 mmol/L (3.5-5.0); SODIUM 138 mmol/L (135-145)
[2022-08-20] MEDS: D5NS W/20 MEQ KCL 1,000 ML IV SCH (20:10)
[2022-08-20] MEDS ORDERED: MAGNESIUM OXIDE 400 MG TABLET PO ONE (20:28)
[2022-08-20] MEDS ORDERED: POTASSIUM CHLORIDE 20 MEQ TABLET PO ONE (20:28)
[2022-08-20] MEDS ORDERED: VANCOMYCIN 500 MG VIAL ONE (20:56)
[2022-08-20] MEDS: NEUTRA-PHOS 250 MG TABLET PO SCH ×2 (22:04→23:07)
[2022-08-20] MEDS: PIPERACILLIN/TAZOBACTAM 3.375 GM in SODIUM CHLORIDE 0.9% MINIBAG 100 ML IV SCH (23:08)
[2022-08-20] MEDS ORDERED: DEXTROSE 40% GEL 37.5 GM TUBE PO ONE (23:34)
[2022-08-21 00:15] LABS: KETONES, SERUM (ACETEST) SMALL (NEGATIVE)
[2022-08-21 00:31] LABS: BUN - BLOOD UREA NITROGEN 10 mg/dL (6-20); CALCIUM 8.2 mg/dL (8.5-10.3); CARBON DIOXIDE - CO2 24 mmol/L (21-32); CHLORIDE 105 mmol/L (101-111); CREATININE 0.6 mg/dL (0.6-1.2); GFR - MDRD 134 (>89); GLUCOSE 69 mg/dL (70-100); MAGNESIUM 1.9 mg/dL (1.7-2.8); POTASSIUM 3.4 mmol/L (3.5-5.0); SODIUM 138 mmol/L (135-145)
[2022-08-21] MEDS: POTASSIUM CHLORIDE 20 MEQ TABLET PO SCH ×2 (02:34→02:58)
[2022-08-21] MEDS: SODIUM CHLORIDE FLUSH 0.9% 10 ML SYRINGE IVP SCH ×4 (02:55→22:19)
[2022-08-21] MEDS: POTASSIUM CHLOR 10 MEQ/100 ML 10 MEQ/100 ML BAG IV SCH ×4 (02:55→06:50)
[2022-08-21] MEDS ORDERED: POTASSIUM CHLOR 20 MEQ/100 ML 20 MEQ/100 ML BAG IV SCH (03:00)
[2022-08-21 03:40] LABS: CALCIUM, IONIZED 1.01 mmol/L (1.15-1.33); VBG PH 7.498 (7.31-7.41)
[2022-08-21 03:41] LABS: BASOPHILS # (AUTO) 0.1 10^3/uL (0.0-0.1); BASOPHILS % (AUTO) 0.9 %; EOSINOPHILS # (AUTO) 0.1 10^3/uL (0.0-0.7); EOSINOPHILS % (AUTO) 1.4 %; HCT - HEMATOCRIT 39.6 % (42.0-52.0); HGB - HEMOGLOBIN 13.2 g/dL (14.0-18.0); LYMPHOCYTES # (AUTO) 1.2 10^3/uL (1.5-3.5); MEAN CORPUSCULAR HEMOGLOBIN 32.2 pg (27.0-31.0); MEAN CORPUSCULAR HGB CONC 33.3 g/dL (32.0-36.0); MEAN CORPUSCULAR VOLUME 96.6 fL (80.0-94.0); MEAN PLATELET VOLUME 10.3 fL (7.4-11.4); MONOCYTES # (AUTO) 0.5 10^3/uL (0.0-1.0); MONOCYTES % (AUTO) 5.7 %; NEUTROPHILS # (AUTO) 7.4 10^3/uL (1.5-6.6); NEUTROPHILS % (AUTO) 78.5 %; PLT - PLATELET COUNT 247 10^3/uL (130-450); RED CELL DISTRIBUTION WIDTH 13.5 % (12.0-15.0); WHITE BLOOD COUNT 9.4 x10^3/uL (4.8-10.8)
[2022-08-21] MEDS: CALCIUM CARBONATE CHEW 500 MG TABLET PO SCH ×2 (04:03→08:06)
[2022-08-21] MEDS: D5NS W/20 MEQ KCL 1,000 ML IV SCH (04:05)
[2022-08-21 04:18] LABS: BUN - BLOOD UREA NITROGEN 13 mg/dL (6-20); CARBON DIOXIDE - CO2 25 mmol/L (21-32); CHLORIDE 106 mmol/L (101-111); CREATININE 0.6 mg/dL (0.6-1.2); GFR - MDRD 134 (>89); GLUCOSE 287 mg/dL (70-100); POTASSIUM 3.5 mmol/L (3.5-5.0); SODIUM 139 mmol/L (135-145)
[2022-08-21 04:26] LABS: KETONES, SERUM (ACETEST) NEGATIVE (NEGATIVE)
[2022-08-21] MEDS ORDERED: POTASSIUM PHOSPHATE 15 MMOL in SODIUM CHLORIDE 0.9% 250 ML IV ONE (04:35)
[2022-08-21 04:57] LABS: PLATELET ESTIMATE, MANUAL NORMAL (130-450,000) (NORMAL)
[2022-08-21] MEDS: PIPERACILLIN/TAZOBACTAM 3.375 GM in SODIUM CHLORIDE 0.9% MINIBAG 100 ML IV SCH ×4 (05:41→22:27)
[2022-08-21] MEDS ORDERED: MAGNESIUM OXIDE 400 MG TABLET PO ONE (05:55)
[2022-08-21 07:37] LABS: CALCIUM, IONIZED 1.11 mmol/L (1.15-1.33); VBG PH 7.426 (7.31-7.41)
[2022-08-21] MEDS ORDERED: D5NS W/20 MEQ KCL 1,000 ML IV SCH (07:51)
[2022-08-21] MEDS: VANCOMYCIN INJ 1 GM in SODIUM CHLORIDE 0.9% 250 ML IV SCH ×2 (08:06→21:11)
[2022-08-21] MEDS: polyethylene glycoL 3350 17 GM PACKET PO SCH (08:35)
[2022-08-21] MEDS: INSULIN LISPRO 300 UNIT/3 ML PEN SUBQ SCH ×4 (08:36→22:17)
[2022-08-21 10:21] LABS: ESTIMATED AVERAGE GLUCOSE 367 mg/dL (70-100); HEMOGLOBIN A1c% 14.4 % (4.27-6.07)
[2022-08-21] MEDS: NICOTINE 14 MG PATCH TOP SCH (11:55)
[2022-08-21] MEDS: MULTIVITAMIN W/MINERALS TABLET PO SCH (11:55)
--- NOTE | 2022-08-21 14:33 | PROVIDER PROGRESS NOTE ---
Subjective - Subjective Pt reports feeling: Improved (minimal to no perianal pain) Objective - Vital Signs/Intake & Output Vital Signs: Vital Signs x48h Temp Pulse Resp BP Pulse Ox 08/21/22 13:00 37.0 C 72 16 124/86 H 98 08/21/22 08:00 37.4 C 08/21/22 07:00 71 16 130/75 98 Intake & Output: Intake & Output 08/18/22 08/19/22 08/20/22 08/21/22 23:59 23:59 23:59 23:59 Intake Total 9809.349 3614.956 Output Total 850 775 Balance 217.741 0246.956 - Objective General Appearance: positive: No acute distress, Alert Eyes Bilateral: positive: PERRL, EOMI Respiratory: positive: No respiratory distress Abdomen: positive: No distention Skin: positive: Other (perianal I and D site clean. no cellulitis or induration) Neurologic/Psychiatric: positive: Oriented x3 - Lab Results Fish Bones: 08/21/22 03:25 08/21/22 03:25 Other Labs: Lab Results x24hrs 08/21/22 08/21/22 08/21/22 Range/Units 11:52 11:51 08:00 WBC (4.8-10.8) x10^3/uL RBC (4.70-6.10) 10^6/uL Hgb (14.0-18.0) g/dL Hct (42.0-52.0) % MCV (80.0-94.0) fL MCH (27.0-31.0) pg MCHC (32.0-36.0) g/dL RDW (12.0-15.0) % Plt Count (130-450) 10^3/uL MPV (7.4-11.4) fL Neut # (Auto) (1.5-6.6) 10^3/uL Lymph # (Auto) (1.5-3.5) 10^3/uL [place] # (Auto) (0.0-1.0) 10^3/uL Eos # (Auto) (0.0-0.7) 10^3/uL Baso # (Auto) (0.0-0.1) 10^3/uL Absolute Nucleated RBC x10^3/uL Nucleated RBC % /100WBC Platelet Estimate (NORMAL) VBG pH (7.31-7.41) Ionized Calcium (1.15-1.33) mmol/L Sodium (135-145) mmol/L Potassium (3.5-5.0) mmol/L Chloride (101-111) mmol/L Carbon Dioxide (21-32) mmol/L Anion Gap (6-13) BUN (6-20) mg/dL Creatinine (0.6-1.2) mg/dL Estimated GFR (MDRD) (>89) Glucose (70-100) mg/dL POC Whole Bld Glucose 339 H 324 H 148 H (70 - 100) mg/dL Estimat Average Glucose (70-100) mg/dL Hemoglobin A1c % (4.27-6.07) % Lactic Acid (0.5-2.2) mmol/L Calcium (8.5-10.3) mg/dL Phosphorus (2.5-4.6) mg/dL Magnesium (1.7-2.8) mg/dL Total Bilirubin (0.2-1.0) mg/dL AST (10-42) IU/L ALT (10-60) IU/L Alkaline Phosphatase (42-121) IU/L Total Protein (6.7-8.2) g/dL Albumin (3.2-5.5) g/dL Globulin (2.1-4.2) g/dL Albumin/Globulin Ratio (1.0-2.2) Lipase (22-51) U/L TSH (0.34-5.60) uIU/mL Urine Color Urine Clarity (CLEAR) Urine pH (5.0-7.5) PH Ur Specific [place] (1.002-1.030) Urine Protein (NEGATIVE) mg/dL Urine Glucose (UA) (NEGATIVE) mg/dL Urine Ketones (NEGATIVE) mg/dL Urine Occult Blood (NEGATIVE) Urine Nitrite (NEGATIVE) Urine Bilirubin (NEGATIVE) Urine Urobilinogen (NORMAL) E.U./dL Ur Leukocyte Esterase (NEGATIVE) Urine RBC (0-5) /HPF Urine WBC (0-3) /HPF Ur Squamous Epith Cells (<= Few) Urine Bacteria (None Seen) /HPF Urine Casts /LPF Ur Microscopic Review Urine Culture Comments Nasal Screen MRSA (PCR) (NEGATIVE) Serum Ketones (NEGATIVE) 08/21/22 08/21/22 08/21/22 Range/Units 07:30 07:30 07:30 WBC (4.8-10.8) x10^3/uL RBC (4.70-6.10) 10^6/uL Hgb (14.0-18.0) g/dL Hct (42.0-52.0) % MCV (80.0-94.0) fL MCH (27.0-31.0) pg MCHC (32.0-36.0) g/dL RDW (12.0-15.0) % Plt Count (130-450) 10^3/uL MPV (7.4-11.4) fL Neut # (Auto) (1.5-6.6) 10^3/uL Lymph # (Auto) (1.5-3.5) 10^3/uL [place] # (Auto) (0.0-1.0) 10^3/uL Eos # (Auto) (0.0-0.7) 10^3/uL Baso # (Auto) (0.0-0.1) 10^3/uL Absolute Nucleated RBC x10^3/uL Nucleated RBC % /100WBC Platelet Estimate (NORMAL) VBG pH 7.426 H (7.31-7.41) Ionized Calcium 1.11 L (1.15-1.33) mmol/L Sodium (135-145) mmol/L Potassium (3.5-5.0) mmol/L Chloride (101-111) mmol/L Carbon Dioxide (21-32) mmol/L Anion Gap (6-13) BUN (6-20) mg/dL Creatinine (0.6-1.2) mg/dL Estimated GFR (MDRD) (>89) Glucose (70-100) mg/dL POC Whole Bld Glucose (70 - 100) mg/dL Estimat Average Glucose (70-100) mg/dL Hemoglobin A1c % (4.27-6.07) % Lactic Acid (0.5-2.2) mmol/L Calcium (8.5-10.3) mg/dL Phosphorus (2.5-4.6) mg/dL Magnesium 1.8 (1.7-2.8) mg/dL Total Bilirubin (0.2-1.0) mg/dL AST (10-42) IU/L ALT (10-60) IU/L Alkaline Phosphatase (42-121) IU/L Total Protein (6.7-8.2) g/dL Albumin (3.2-5.5) g/dL Globulin (2.1-4.2) g/dL Albumin/Globulin Ratio (1.0-2.2) Lipase (22-51) U/L TSH (0.34-5.60) uIU/mL Urine Color Urine Clarity (CLEAR) Urine pH (5.0-7.5) PH Ur Specific [place] (1.002-1.030) Urine Protein (NEGATIVE) mg/dL Urine Glucose (UA) (NEGATIVE) mg/dL Urine Ketones (NEGATIVE) mg/dL Urine Occult Blood (NEGATIVE) Urine Nitrite (NEGATIVE) Urine Bilirubin (NEGATIVE) Urine Urobilinogen (NORMAL) E.U./dL Ur Leukocyte Esterase (NEGATIVE) Urine RBC (0-5) /HPF Urine WBC (0-3) /HPF Ur Squamous Epith Cells (<= Few) Urine Bacteria (None Seen) /HPF Urine Casts /LPF Ur Microscopic Review Urine Culture Comments Nasal Screen MRSA (PCR) (NEGATIVE) Serum Ketones NEGATIVE (NEGATIVE) 08/21/22 08/21/22 08/21/22 Range/Units 07:07 06:57 06:32 WBC (4.8-10.8) x10^3/uL RBC (4.70-6.10) 10^6/uL Hgb (14.0-18.0) g/dL Hct (42.0-52.0) % MCV (80.0-94.0) fL MCH (27.0-31.0) pg MCHC (32.0-36.0) g/dL RDW (12.0-15.0) % Plt Count (130-450) 10^3/uL MPV (7.4-11.4) fL Neut # (Auto) (1.5-6.6) 10^3/uL Lymph # (Auto) (1.5-3.5) 10^3/uL [place] # (Auto) (0.0-1.0) 10^3/uL Eos # (Auto) (0.0-0.7) 10^3/uL Baso # (Auto) (0.0-0.1) 10^3/uL Absolute Nucleated RBC x10^3/uL Nucleated RBC % /100WBC Platelet Estimate (NORMAL) VBG pH (7.31-7.41) Ionized Calcium (1.15-1.33) mmol/L Sodium (135-145) mmol/L Potassium (3.5-5.0) mmol/L Chloride (101-111) mmol/L Carbon Dioxide (21-32) mmol/L Anion Gap (6-13) BUN (6-20) mg/dL Creatinine (0.6-1.2) mg/dL Estimated GFR (MDRD) (>89) Glucose (70-100) mg/dL POC Whole Bld Glucose 90 85 88 (70 - 100) mg/dL Estimat Average Glucose (70-100) mg/dL Hemoglobin A1c % (4.27-6.07) % Lactic Acid (0.5-2.2) mmol/L Calcium (8.5-10.3) mg/dL Phosphorus (2.5-4.6) mg/dL Magnesium (1.7-2.8) mg/dL Total Bilirubin (0.2-1.0) mg/dL AST (10-42) IU/L ALT (10-60) IU/L Alkaline Phosphatase (42-121) IU/L Total Protein (6.7-8.2) g/dL Albumin (3.2-5.5) g/dL Globulin (2.1-4.2) g/dL Albumin/Globulin Ratio (1.0-2.2) Lipase (22-51) U/L TSH (0.34-5.60) uIU/mL Urine Color Urine Clarity (CLEAR) Urine pH (5.0-7.5) PH Ur Specific [place] (1.002-1.030) Urine Protein (NEGATIVE) mg/dL Urine Glucose (UA) (NEGATIVE) mg/dL Urine Ketones (NEGATIVE) mg/dL Urine Occult Blood (NEGATIVE) Urine Nitrite (NEGATIVE) Urine Bilirubin (NEGATIVE) Urine Urobilinogen (NORMAL) E.U./dL Ur Leukocyte Esterase (NEGATIVE) Urine RBC (0-5) /HPF Urine WBC (0-3) /HPF Ur Squamous Epith Cells (<= Few) Urine Bacteria (None Seen) /HPF Urine Casts /LPF Ur Microscopic Review Urine Culture Comments Nasal Screen MRSA (PCR) (NEGATIVE) Serum Ketones (NEGATIVE) 08/21/22 08/21/22 08/21/22 Range/Units 06:18 06:06 05:02 WBC (4.8-10.8) x10^3/uL RBC (4.70-6.10) 10^6/uL Hgb (14.0-18.0) g/dL Hct (42.0-52.0) % MCV (80.0-94.0) fL MCH (27.0-31.0) pg MCHC (32.0-36.0) g/dL RDW (12.0-15.0) % Plt Count (130-450) 10^3/uL MPV (7.4-11.4) fL Neut # (Auto) (1.5-6.6) 10^3/uL Lymph # (Auto) (1.5-3.5) 10^3/uL [place] # (Auto) (0.0-1.0) 10^3/uL Eos # (Auto) (0.0-0.7) 10^3/uL Baso # (Auto) (0.0-0.1) 10^3/uL Absolute Nucleated RBC x10^3/uL Nucleated RBC % /100WBC Platelet Estimate (NORMAL) VBG pH (7.31-7.41) Ionized Calcium (1.15-1.33) mmol/L Sodium (135-145) mmol/L Potassium (3.5-5.0) mmol/L Chloride (101-111) mmol/L Carbon Dioxide (21-32) mmol/L Anion Gap (6-13) BUN (6-20) mg/dL Creatinine (0.6-1.2) mg/dL Estimated GFR (MDRD) (>89) Glucose (70-100) mg/dL POC Whole Bld Glucose 108 H 126 H 207 H (70 - 100) mg/dL Estimat Average Glucose (70-100) mg/dL Hemoglobin A1c % (4.27-6.07) % Lactic Acid (0.5-2.2) mmol/L Calcium (8.5-10.3) mg/dL Phosphorus (2.5-4.6) mg/dL Magnesium (1.7-2.8) mg/dL Total Bilirubin (0.2-1.0) mg/dL AST (10-42) IU/L ALT (10-60) IU/L Alkaline Phosphatase (42-121) IU/L Total Protein (6.7-8.2) g/dL Albumin (3.2-5.5) g/dL Globulin (2.1-4.2) g/dL Albumin/Globulin Ratio (1.0-2.2) Lipase (22-51) U/L TSH (0.34-5.60) uIU/mL Urine Color Urine Clarity (CLEAR) Urine pH (5.0-7.5) PH Ur Specific [place] (1.002-1.030) Urine Protein (NEGATIVE) mg/dL Urine Glucose (UA) (NEGATIVE) mg/dL Urine Ketones (NEGATIVE) mg/dL Urine Occult Blood (NEGATIVE) Urine Nitrite (NEGATIVE) Urine Bilirubin (NEGATIVE) Urine Urobilinogen (NORMAL) E.U./dL Ur Leukocyte Esterase (NEGATIVE) Urine RBC (0-5) /HPF Urine WBC (0-3) /HPF Ur Squamous Epith Cells (<= Few) Urine Bacteria (None Seen) /HPF Urine Casts /LPF Ur Microscopic Review Urine Culture Comments Nasal Screen MRSA (PCR) (NEGATIVE) Serum Ketones (NEGATIVE) 08/21/22 08/21/22 08/21/22 Range/Units 03:56 03:25 03:25 WBC (4.8-10.8) x10^3/uL RBC (4.70-6.10) 10^6/uL Hgb (14.0-18.0) g/dL Hct (42.0-52.0) % MCV (80.0-94.0) fL MCH (27.0-31.0) pg MCHC (32.0-36.0) g/dL RDW (12.0-15.0) % Plt Count (130-450) 10^3/uL MPV (7.4-11.4) fL Neut # (Auto) (1.5-6.6) 10^3/uL Lymph # (Auto) (1.5-3.5) 10^3/uL [place] # (Auto) (0.0-1.0) 10^3/uL Eos # (Auto) (0.0-0.7) 10^3/uL Baso # (Auto) (0.0-0.1) 10^3/uL Absolute Nucleated RBC x10^3/uL Nucleated RBC % /100WBC Platelet Estimate (NORMAL) VBG pH 7.498 H (7.31-7.41) Ionized Calcium 1.01 L (1.15-1.33) mmol/L Sodium (135-145) mmol/L Potassium (3.5-5.0) mmol/L Chloride (101-111) mmol/L Carbon Dioxide (21-32) mmol/L Anion Gap (6-13) BUN (6-20) mg/dL Creatinine (0.6-1.2) mg/dL Estimated GFR (MDRD) (>89) Glucose (70-100) mg/dL POC Whole Bld Glucose 258 H (70 - 100) mg/dL Estimat Average Glucose (70-100) mg/dL Hemoglobin A1c % (4.27-6.07) % Lactic Acid (0.5-2.2) mmol/L Calcium (8.5-10.3) mg/dL Phosphorus (2.5-4.6) mg/dL Magnesium 1.7 (1.7-2.8) mg/dL Total Bilirubin (0.2-1.0) mg/dL AST (10-42) IU/L ALT (10-60) IU/L Alkaline Phosphatase (42-121) IU/L Total Protein (6.7-8.2) g/dL Albumin (3.2-5.5) g/dL Globulin (2.1-4.2) g/dL Albumin/Globulin Ratio (1.0-2.2) Lipase (22-51) U/L TSH (0.34-5.60) uIU/mL Urine Color Urine Clarity (CLEAR) Urine pH (5.0-7.5) PH Ur Specific [place] (1.002-1.030) Urine Protein (NEGATIVE) mg/dL Urine Glucose (UA) (NEGATIVE) mg/dL Urine Ketones (NEGATIVE) mg/dL Urine Occult Blood (NEGATIVE) Urine Nitrite (NEGATIVE) Urine Bilirubin (NEGATIVE) Urine Urobilinogen (NORMAL) E.U./dL Ur Leukocyte Esterase (NEGATIVE) Urine RBC (0-5) /HPF Urine WBC (0-3) /HPF Ur Squamous Epith Cells (<= Few) Urine Bacteria (None Seen) /HPF Urine Casts /LPF Ur Microscopic Review Urine Culture Comments Nasal Screen MRSA (PCR) (NEGATIVE) Serum Ketones (NEGATIVE) 08/21/22 08/21/22 08/21/22 Range/Units 03:25 03:25 03:25 WBC 9.4 (4.8-10.8) x10^3/uL RBC 4.10 L (4.70-6.10) 10^6/uL Hgb 13.2 L (14.0-18.0) g/dL Hct 39.6 L (42.0-52.0) % MCV 96.6 H (80.0-94.0) fL MCH 32.2 H (27.0-31.0) pg MCHC 33.3 (32.0-36.0) g/dL RDW 13.5 (12.0-15.0) % Plt Count 247 (130-450) 10^3/uL MPV 10.3 (7.4-11.4) fL Neut # (Auto) 7.4 H (1.5-6.6) 10^3/uL Lymph # (Auto) 1.2 L (1.5-3.5) 10^3/uL [place] # (Auto) 0.5 (0.0-1.0) 10^3/uL Eos # (Auto) 0.1 (0.0-0.7) 10^3/uL Baso # (Auto) 0.1 (0.0-0.1) 10^3/uL Absolute Nucleated RBC 0.00 x10^3/uL Nucleated RBC % 0.0 /100WBC Platelet Estimate NORMAL (130-450,000) (NORMAL) VBG pH (7.31-7.41) Ionized Calcium (1.15-1.33) mmol/L Sodium 139 (135-145) mmol/L Potassium 3.5 (3.5-5.0) mmol/L Chloride 106 (101-111) mmol/L Carbon Dioxide 25 (21-32) mmol/L Anion Gap 8.0 (6-13) BUN 13 (6-20) mg/dL Creatinine 0.6 (0.6-1.2) mg/dL Estimated GFR (MDRD) 134 (>89) Glucose 287 H (70-100) mg/dL POC Whole Bld Glucose (70 - 100) mg/dL Estimat Average Glucose (70-100) mg/dL Hemoglobin A1c % (4.27-6.07) % Lactic Acid (0.5-2.2) mmol/L Calcium 8.0 L (8.5-10.3) mg/dL Phosphorus 2.0 L (2.5-4.6) mg/dL Magnesium (1.7-2.8) mg/dL Total Bilirubin (0.2-1.0) mg/dL AST (10-42) IU/L ALT (10-60) IU/L Alkaline Phosphatase (42-121) IU/L Total Protein (6.7-8.2) g/dL Albumin (3.2-5.5) g/dL Globulin (2.1-4.2) g/dL Albumin/Globulin Ratio (1.0-2.2) Lipase (22-51) U/L TSH (0.34-5.60) uIU/mL Urine Color Urine Clarity (CLEAR) Urine pH (5.0-7.5) PH Ur Specific [place] (1.002-1.030) Urine Protein (NEGATIVE) mg/dL Urine Glucose (UA) (NEGATIVE) mg/dL Urine Ketones (NEGATIVE) mg/dL Urine Occult Blood (NEGATIVE) Urine Nitrite (NEGATIVE) Urine Bilirubin (NEGATIVE) Urine Urobilinogen (NORMAL) E.U./dL Ur Leukocyte Esterase (NEGATIVE) Urine RBC (0-5) /HPF Urine WBC (0-3) /HPF Ur Squamous Epith Cells (<= Few) Urine Bacteria (None Seen) /HPF Urine Casts /LPF Ur Microscopic Review Urine Culture Comments Nasal Screen MRSA (PCR) (NEGATIVE) Serum Ketones Cancelled NEGATIVE (NEGATIVE) 08/21/22 08/21/22 08/21/22 Range/Units 02:59 02:01 01:05 WBC (4.8-10.8) x10^3/uL RBC (4.70-6.10) 10^6/uL Hgb (14.0-18.0) g/dL Hct (42.0-52.0) % MCV (80.0-94.0) fL MCH (27.0-31.0) pg MCHC (32.0-36.0) g/dL RDW (12.0-15.0) % Plt Count (130-450) 10^3/uL MPV (7.4-11.4) fL Neut # (Auto) (1.5-6.6) 10^3/uL Lymph # (Auto) (1.5-3.5) 10^3/uL [place] # (Auto) (0.0-1.0) 10^3/uL Eos # (Auto) (0.0-0.7) 10^3/uL Baso # (Auto) (0.0-0.1) 10^3/uL Absolute Nucleated RBC x10^3/uL Nucleated RBC % /100WBC Platelet Estimate (NORMAL) VBG pH (7.31-7.41) Ionized Calcium (1.15-1.33) mmol/L Sodium (135-145) mmol/L Potassium (3.5-5.0) mmol/L Chloride (101-111) mmol/L Carbon Dioxide (21-32) mmol/L Anion Gap (6-13) BUN (6-20) mg/dL Creatinine (0.6-1.2) mg/dL Estimated GFR (MDRD) (>89) Glucose (70-100) mg/dL POC Whole Bld Glucose 309 H 278 H 247 H (70 - 100) mg/dL Estimat Average Glucose (70-100) mg/dL Hemoglobin A1c % (4.27-6.07) % Lactic Acid (0.5-2.2) mmol/L Calcium (8.5-10.3) mg/dL Phosphorus (2.5-4.6) mg/dL Magnesium (1.7-2.8) mg/dL Total Bilirubin (0.2-1.0) mg/dL AST (10-42) IU/L ALT (10-60) IU/L Alkaline Phosphatase (42-121) IU/L Total Protein (6.7-8.2) g/dL Albumin (3.2-5.5) g/dL Globulin (2.1-4.2) g/dL Albumin/Globulin Ratio (1.0-2.2) Lipase (22-51) U/L TSH (0.34-5.60) uIU/mL Urine Color Urine Clarity (CLEAR) Urine pH (5.0-7.5) PH Ur Specific [place] (1.002-1.030) Urine Protein (NEGATIVE) mg/dL Urine Glucose (UA) (NEGATIVE) mg/dL Urine Ketones (NEGATIVE) mg/dL Urine Occult Blood (NEGATIVE) Urine Nitrite (NEGATIVE) Urine Bilirubin (NEGATIVE) Urine Urobilinogen (NORMAL) E.U./dL Ur Leukocyte Esterase (NEGATIVE) Urine RBC (0-5) /HPF Urine WBC (0-3) /HPF Ur Squamous Epith Cells (<= Few) Urine Bacteria (None Seen) /HPF Urine Casts /LPF Ur Microscopic Review Urine Culture Comments Nasal Screen MRSA (PCR) (NEGATIVE) Serum Ketones (NEGATIVE) 08/21/22 08/21/22 08/20/22 Range/Units 00:31 00:08 23:51 WBC (4.8-10.8) x10^3/uL RBC (4.70-6.10) 10^6/uL Hgb (14.0-18.0) g/dL Hct (42.0-52.0) % MCV (80.0-94.0) fL MCH (27.0-31.0) pg MCHC (32.0-36.0) g/dL RDW (12.0-15.0) % Plt Count (130-450) 10^3/uL MPV (7.4-11.4) fL Neut # (Auto) (1.5-6.6) 10^3/uL Lymph # (Auto) (1.5-3.5) 10^3/uL [place] # (Auto) (0.0-1.0) 10^3/uL Eos # (Auto) (0.0-0.7) 10^3/uL Baso # (Auto) (0.0-0.1) 10^3/uL Absolute Nucleated RBC x10^3/uL Nucleated RBC % /100WBC Platelet Estimate (NORMAL) VBG pH (7.31-7.41) Ionized Calcium (1.15-1.33) mmol/L Sodium (135-145) mmol/L Potassium (3.5-5.0) mmol/L Chloride (101-111) mmol/L Carbon Dioxide (21-32) mmol/L Anion Gap (6-13) BUN (6-20) mg/dL Creatinine (0.6-1.2) mg/dL Estimated GFR (MDRD) (>89) Glucose (70-100) mg/dL POC Whole Bld Glucose 191 H 123 H 74 (70 - 100) mg/dL Estimat Average Glucose (70-100) mg/dL Hemoglobin A1c % (4.27-6.07) % Lactic Acid (0.5-2.2) mmol/L Calcium (8.5-10.3) mg/dL Phosphorus (2.5-4.6) mg/dL Magnesium (1.7-2.8) mg/dL Total Bilirubin (0.2-1.0) mg/dL AST (10-42) IU/L ALT (10-60) IU/L Alkaline Phosphatase (42-121) IU/L Total Protein (6.7-8.2) g/dL Albumin (3.2-5.5) g/dL Globulin (2.1-4.2) g/dL Albumin/Globulin Ratio (1.0-2.2) Lipase (22-51) U/L TSH (0.34-5.60) uIU/mL Urine Color Urine Clarity (CLEAR) Urine pH (5.0-7.5) PH Ur Specific [place] (1.002-1.030) Urine Protein (NEGATIVE) mg/dL Urine Glucose (UA) (NEGATIVE) mg/dL Urine Ketones (NEGATIVE) mg/dL Urine Occult Blood (NEGATIVE) Urine Nitrite (NEGATIVE) Urine Bilirubin (NEGATIVE) Urine Urobilinogen (NORMAL) E.U./dL Ur Leukocyte Esterase (NEGATIVE) Urine RBC (0-5) /HPF Urine WBC (0-3) /HPF Ur Squamous Epith Cells (<= Few) Urine Bacteria (None Seen) /HPF Urine Casts /LPF Ur Microscopic Review Urine Culture Comments Nasal Screen MRSA (PCR) (NEGATIVE) Serum Ketones (NEGATIVE) 08/20/22 08/20/22 08/20/22 Range/Units 23:44 23:44 23:44 WBC (4.8-10.8) x10^3/uL RBC (4.70-6.10) 10^6/uL Hgb (14.0-18.0) g/dL Hct (42.0-52.0) % MCV (80.0-94.0) fL MCH (27.0-31.0) pg MCHC (32.0-36.0) g/dL RDW (12.0-15.0) % Plt Count (130-450) 10^3/uL MPV (7.4-11.4) fL Neut # (Auto) (1.5-6.6) 10^3/uL Lymph # (Auto) (1.5-3.5) 10^3/uL [place] # (Auto) (0.0-1.0) 10^3/uL Eos # (Auto) (0.0-0.7) 10^3/uL Baso # (Auto) (0.0-0.1) 10^3/uL Absolute Nucleated RBC x10^3/uL Nucleated RBC % /100WBC Platelet Estimate (NORMAL) VBG pH (7.31-7.41) Ionized Calcium (1.15-1.33) mmol/L Sodium 138 (135-145) mmol/L Potassium 3.4 L (3.5-5.0) mmol/L Chloride 105 (101-111) mmol/L Carbon Dioxide 24 (21-32) mmol/L Anion Gap 9.0 (6-13) BUN 10 (6-20) mg/dL Creatinine 0.6 (0.6-1.2) mg/dL Estimated GFR (MDRD) 134 (>89) Glucose 69 L (70-100) mg/dL POC Whole Bld Glucose 61 L (70 - 100) mg/dL Estimat Average Glucose (70-100) mg/dL Hemoglobin A1c % (4.27-6.07) % Lactic Acid (0.5-2.2) mmol/L Calcium 8.2 L (8.5-10.3) mg/dL Phosphorus 1.5 L (2.5-4.6) mg/dL Magnesium 1.9 (1.7-2.8) mg/dL Total Bilirubin (0.2-1.0) mg/dL AST (10-42) IU/L ALT (10-60) IU/L Alkaline Phosphatase (42-121) IU/L Total Protein (6.7-8.2) g/dL Albumin (3.2-5.5) g/dL Globulin (2.1-4.2) g/dL Albumin/Globulin Ratio (1.0-2.2) Lipase (22-51) U/L TSH (0.34-5.60) uIU/mL Urine Color Urine Clarity (CLEAR) Urine pH (5.0-7.5) PH Ur Specific [place] (1.002-1.030) Urine Protein (NEGATIVE) mg/dL Urine Glucose (UA) (NEGATIVE) mg/dL Urine Ketones (NEGATIVE) mg/dL Urine Occult Blood (NEGATIVE) Urine Nitrite (NEGATIVE) Urine Bilirubin (NEGATIVE) Urine Urobilinogen (NORMAL) E.U./dL Ur Leukocyte Esterase (NEGATIVE) Urine RBC (0-5) /HPF Urine WBC (0-3) /HPF Ur Squamous Epith Cells (<= Few) Urine Bacteria (None Seen) /HPF Urine Casts /LPF Ur Microscopic Review Urine Culture Comments Nasal Screen MRSA (PCR) (NEGATIVE) Serum Ketones SMALL H (NEGATIVE) 08/20/22 08/20/22 08/20/22 Range/Units 23:31 23:03 21:55 WBC (4.8-10.8) x10^3/uL RBC (4.70-6.10) 10^6/uL Hgb (14.0-18.0) g/dL Hct (42.0-52.0) % MCV (80.0-94.0) fL MCH (27.0-31.0) pg MCHC (32.0-36.0) g/dL RDW (12.0-15.0) % Plt Count (130-450) 10^3/uL MPV (7.4-11.4) fL Neut # (Auto) (1.5-6.6) 10^3/uL Lymph # (Auto) (1.5-3.5) 10^3/uL [place] # (Auto) (0.0-1.0) 10^3/uL Eos # (Auto) (0.0-0.7) 10^3/uL Baso # (Auto) (0.0-0.1) 10^3/uL Absolute Nucleated RBC x10^3/uL Nucleated RBC % /100WBC Platelet Estimate (NORMAL) VBG pH (7.31-7.41) Ionized Calcium (1.15-1.33) mmol/L Sodium (135-145) mmol/L Potassium (3.5-5.0) mmol/L Chloride (101-111) mmol/L Carbon Dioxide (21-32) mmol/L Anion Gap (6-13) BUN (6-20) mg/dL Creatinine (0.6-1.2) mg/dL Estimated GFR (MDRD) (>89) Glucose (70-100) mg/dL POC Whole Bld Glucose 63 L 86 127 H (70 - 100) mg/dL Estimat Average Glucose (70-100) mg/dL Hemoglobin A1c % (4.27-6.07) % Lactic Acid (0.5-2.2) mmol/L Calcium (8.5-10.3) mg/dL Phosphorus (2.5-4.6) mg/dL Magnesium (1.7-2.8) mg/dL Total Bilirubin (0.2-1.0) mg/dL AST (10-42) IU/L ALT (10-60) IU/L Alkaline Phosphatase (42-121) IU/L Total Protein (6.7-8.2) g/dL Albumin (3.2-5.5) g/dL Globulin (2.1-4.2) g/dL Albumin/Globulin Ratio (1.0-2.2) Lipase (22-51) U/L TSH (0.34-5.60) uIU/mL Urine Color Urine Clarity (CLEAR) Urine pH (5.0-7.5) PH Ur Specific [place] (1.002-1.030) Urine Protein (NEGATIVE) mg/dL Urine Glucose (UA) (NEGATIVE) mg/dL Urine Ketones (NEGATIVE) mg/dL Urine Occult Blood (NEGATIVE) Urine Nitrite (NEGATIVE) Urine Bilirubin (NEGATIVE) Urine Urobilinogen (NORMAL) E.U./dL Ur Leukocyte Esterase (NEGATIVE) Urine RBC (0-5) /HPF Urine WBC (0-3) /HPF Ur Squamous Epith Cells (<= Few) Urine Bacteria (None Seen) /HPF Urine Casts /LPF Ur Microscopic Review Urine Culture Comments Nasal Screen MRSA (PCR) (NEGATIVE) Serum Ketones (NEGATIVE) 08/20/22 08/20/22 08/20/22 Range/Units 21:04 20:07 19:53 WBC (4.8-10.8) x10^3/uL RBC (4.70-6.10) 10^6/uL Hgb (14.0-18.0) g/dL Hct (42.0-52.0) % MCV (80.0-94.0) fL MCH (27.0-31.0) pg MCHC (32.0-36.0) g/dL RDW (12.0-15.0) % Plt Count (130-450) 10^3/uL MPV (7.4-11.4) fL Neut # (Auto) (1.5-6.6) 10^3/uL Lymph # (Auto) (1.5-3.5) 10^3/uL [place] # (Auto) (0.0-1.0) 10^3/uL Eos # (Auto) (0.0-0.7) 10^3/uL Baso # (Auto) (0.0-0.1) 10^3/uL Absolute Nucleated RBC x10^3/uL Nucleated RBC % /100WBC Platelet Estimate (NORMAL) VBG pH (7.31-7.41) Ionized Calcium (1.15-1.33) mmol/L Sodium (135-145) mmol/L Potassium (3.5-5.0) mmol/L Chloride (101-111) mmol/L Carbon Dioxide (21-32) mmol/L Anion Gap (6-13) BUN (6-20) mg/dL Creatinine (0.6-1.2) mg/dL Estimated GFR (MDRD) (>89) Glucose (70-100) mg/dL POC Whole Bld Glucose 187 H 183 H (70 - 100) mg/dL Estimat Average Glucose (70-100) mg/dL Hemoglobin A1c % (4.27-6.07) % Lactic Acid (0.5-2.2) mmol/L Calcium (8.5-10.3) mg/dL Phosphorus 2.2 L (2.5-4.6) mg/dL Magnesium (1.7-2.8) mg/dL Total Bilirubin (0.2-1.0) mg/dL AST (10-42) IU/L ALT (10-60) IU/L Alkaline Phosphatase (42-121) IU/L Total Protein (6.7-8.2) g/dL Albumin (3.2-5.5) g/dL Globulin (2.1-4.2) g/dL Albumin/Globulin Ratio (1.0-2.2) Lipase (22-51) U/L TSH (0.34-5.60) uIU/mL Urine Color Urine Clarity (CLEAR) Urine pH (5.0-7.5) PH Ur Specific [place] (1.002-1.030) Urine Protein (NEGATIVE) mg/dL Urine Glucose (UA) (NEGATIVE) mg/dL Urine Ketones (NEGATIVE) mg/dL Urine Occult Blood (NEGATIVE) Urine Nitrite (NEGATIVE) Urine Bilirubin (NEGATIVE) Urine Urobilinogen (NORMAL) E.U./dL Ur Leukocyte Esterase (NEGATIVE) Urine RBC (0-5) /HPF Urine WBC (0-3) /HPF Ur Squamous Epith Cells (<= Few) Urine Bacteria (None Seen) /HPF Urine Casts /LPF Ur Microscopic Review Urine Culture Comments Nasal Screen MRSA (PCR) (NEGATIVE) Serum Ketones (NEGATIVE) 08/20/22 08/20/22 08/20/22 Range/Units 19:53 19:35 19:00 WBC (4.8-10.8) x10^3/uL RBC (4.70-6.10) 10^6/uL Hgb (14.0-18.0) g/dL Hct (42.0-52.0) % MCV (80.0-94.0) fL MCH (27.0-31.0) pg MCHC (32.0-36.0) g/dL RDW (12.0-15.0) % Plt Count (130-450) 10^3/uL MPV (7.4-11.4) fL Neut # (Auto) (1.5-6.6) 10^3/uL Lymph # (Auto) (1.5-3.5) 10^3/uL [place] # (Auto) (0.0-1.0) 10^3/uL Eos # (Auto) (0.0-0.7) 10^3/uL Baso # (Auto) (0.0-0.1) 10^3/uL Absolute Nucleated RBC x10^3/uL Nucleated RBC % /100WBC Platelet Estimate (NORMAL) VBG pH (7.31-7.41) Ionized Calcium (1.15-1.33) mmol/L Sodium 138 138 (135-145) mmol/L Potassium 3.6 3.6 (3.5-5.0) mmol/L Chloride 101 101 (101-111) mmol/L Carbon Dioxide 23 22 (21-32) mmol/L Anion Gap 14.0 H 15.0 H (6-13) BUN 11 11 (6-20) mg/dL Creatinine 0.7 0.7 (0.6-1.2) mg/dL Estimated GFR (MDRD) 112 112 (>89) Glucose 186 H 183 H (70-100) mg/dL POC Whole Bld Glucose (70 - 100) mg/dL Estimat Average Glucose (70-100) mg/dL Hemoglobin A1c % (4.27-6.07) % Lactic Acid (0.5-2.2) mmol/L Calcium 8.5 8.7 (8.5-10.3) mg/dL Phosphorus (2.5-4.6) mg/dL Magnesium 1.7 1.8 (1.7-2.8) mg/dL Total Bilirubin (0.2-1.0) mg/dL AST (10-42) IU/L ALT (10-60) IU/L Alkaline Phosphatase (42-121) IU/L Total Protein (6.7-8.2) g/dL Albumin (3.2-5.5) g/dL Globulin (2.1-4.2) g/dL Albumin/Globulin Ratio (1.0-2.2) Lipase (22-51) U/L TSH (0.34-5.60) uIU/mL Urine Color Urine Clarity (CLEAR) Urine pH (5.0-7.5) PH Ur Specific [place] (1.002-1.030) Urine Protein (NEGATIVE) mg/dL Urine Glucose (UA) (NEGATIVE) mg/dL Urine Ketones (NEGATIVE) mg/dL Urine Occult Blood (NEGATIVE) Urine Nitrite (NEGATIVE) Urine Bilirubin (NEGATIVE) Urine Urobilinogen (NORMAL) E.U./dL Ur Leukocyte Esterase (NEGATIVE) Urine RBC (0-5) /HPF Urine WBC (0-3) /HPF Ur Squamous Epith Cells (<= Few) Urine Bacteria (None Seen) /HPF Urine Casts /LPF Ur Microscopic Review Urine Culture Comments Nasal Screen MRSA (PCR) NEGATIVE (NEGATIVE) Serum Ketones SMALL H SMALL H (NEGATIVE) 08/20/22 08/20/22 08/20/22 Range/Units 19:00 16:32 16:12 WBC (4.8-10.8) x10^3/uL RBC (4.70-6.10) 10^6/uL Hgb (14.0-18.0) g/dL Hct (42.0-52.0) % MCV (80.0-94.0) fL MCH (27.0-31.0) pg MCHC (32.0-36.0) g/dL RDW (12.0-15.0) % Plt Count (130-450) 10^3/uL MPV (7.4-11.4) fL Neut # (Auto) (1.5-6.6) 10^3/uL Lymph # (Auto) (1.5-3.5) 10^3/uL [place] # (Auto) (0.0-1.0) 10^3/uL Eos # (Auto) (0.0-0.7) 10^3/uL Baso # (Auto) (0.0-0.1) 10^3/uL Absolute Nucleated RBC x10^3/uL Nucleated RBC % /100WBC Platelet Estimate (NORMAL) VBG pH (7.31-7.41) Ionized Calcium (1.15-1.33) mmol/L Sodium 137 (135-145) mmol/L Potassium 3.9 (3.5-5.0) mmol/L Chloride 102 (101-111) mmol/L Carbon Dioxide 26 (21-32) mmol/L Anion Gap 9.0 (6-13) BUN 13 (6-20) mg/dL Creatinine 0.7 (0.6-1.2) mg/dL Estimated GFR (MDRD) 112 (>89) Glucose 188 H 190 H (70-100) mg/dL POC Whole Bld Glucose 207 H (70 - 100) mg/dL Estimat Average Glucose (70-100) mg/dL Hemoglobin A1c % (4.27-6.07) % Lactic Acid (0.5-2.2) mmol/L Calcium 8.3 L (8.5-10.3) mg/dL Phosphorus (2.5-4.6) mg/dL Magnesium 1.7 (1.7-2.8) mg/dL Total Bilirubin (0.2-1.0) mg/dL AST (10-42) IU/L ALT (10-60) IU/L Alkaline Phosphatase (42-121) IU/L Total Protein (6.7-8.2) g/dL Albumin (3.2-5.5) g/dL Globulin (2.1-4.2) g/dL Albumin/Globulin Ratio (1.0-2.2) Lipase (22-51) U/L TSH (0.34-5.60) uIU/mL Urine Color Urine Clarity (CLEAR) Urine pH (5.0-7.5) PH Ur Specific [place] (1.002-1.030) Urine Protein (NEGATIVE) mg/dL Urine Glucose (UA) (NEGATIVE) mg/dL Urine Ketones (NEGATIVE) mg/dL Urine Occult Blood (NEGATIVE) Urine Nitrite (NEGATIVE) Urine Bilirubin (NEGATIVE) Urine Urobilinogen (NORMAL) E.U./dL Ur Leukocyte Esterase (NEGATIVE) Urine RBC (0-5) /HPF Urine WBC (0-3) /HPF Ur Squamous Epith Cells (<= Few) Urine Bacteria (None Seen) /HPF Urine Casts /LPF Ur Microscopic Review Urine Culture Comments Nasal Screen MRSA (PCR) (NEGATIVE) Serum Ketones SMALL H (NEGATIVE) 08/20/22 08/20/22 08/20/22 Range/Units 15:22 14:35 14:13 WBC (4.8-10.8) x10^3/uL RBC (4.70-6.10) 10^6/uL Hgb (14.0-18.0) g/dL Hct (42.0-52.0) % MCV (80.0-94.0) fL MCH (27.0-31.0) pg MCHC (32.0-36.0) g/dL RDW (12.0-15.0) % Plt Count (130-450) 10^3/uL MPV (7.4-11.4) fL Neut # (Auto) (1.5-6.6) 10^3/uL Lymph # (Auto) (1.5-3.5) 10^3/uL [place] # (Auto) (0.0-1.0) 10^3/uL Eos # (Auto) (0.0-0.7) 10^3/uL Baso # (Auto) (0.0-0.1) 10^3/uL Absolute Nucleated RBC x10^3/uL Nucleated RBC % /100WBC Platelet Estimate (NORMAL) VBG pH (7.31-7.41) Ionized Calcium (1.15-1.33) mmol/L Sodium (135-145) mmol/L Potassium (3.5-5.0) mmol/L Chloride (101-111) mmol/L Carbon Dioxide (21-32) mmol/L Anion Gap (6-13) BUN (6-20) mg/dL Creatinine (0.6-1.2) mg/dL Estimated GFR (MDRD) (>89) Glucose (70-100) mg/dL POC Whole Bld Glucose 250 H (70 - 100) mg/dL Estimat Average Glucose 367 H (70-100) mg/dL Hemoglobin A1c % 14.4 H (4.27-6.07) % Lactic Acid (0.5-2.2) mmol/L Calcium (8.5-10.3) mg/dL Phosphorus (2.5-4.6) mg/dL Magnesium (1.7-2.8) mg/dL Total Bilirubin (0.2-1.0) mg/dL AST (10-42) IU/L ALT (10-60) IU/L Alkaline Phosphatase (42-121) IU/L Total Protein (6.7-8.2) g/dL Albumin (3.2-5.5) g/dL Globulin (2.1-4.2) g/dL Albumin/Globulin Ratio (1.0-2.2) Lipase (22-51) U/L TSH (0.34-5.60) uIU/mL Urine Color YELLOW Urine Clarity CLEAR (CLEAR) Urine pH 5.5 (5.0-7.5) PH Ur Specific [place] 1.020 (1.002-1.030) Urine Protein 30 H (NEGATIVE) mg/dL Urine Glucose (UA) >=1000 H (NEGATIVE) mg/dL Urine Ketones 40 H (NEGATIVE) mg/dL Urine Occult Blood NEGATIVE (NEGATIVE) Urine Nitrite NEGATIVE (NEGATIVE) Urine Bilirubin NEGATIVE (NEGATIVE) Urine Urobilinogen 0.2 (NORMAL) (NORMAL) E.U./dL Ur Leukocyte Esterase NEGATIVE (NEGATIVE) Urine RBC None Seen (0-5) /HPF Urine WBC 0-3 (0-3) /HPF Ur Squamous Epith Cells FEW Squamous (<= Few) Urine Bacteria Few (None Seen) /HPF Urine Casts 0-2 Hyaline Casts /LPF Ur Microscopic Review INDICATED Urine Culture Comments NOT INDICATED Nasal Screen MRSA (PCR) (NEGATIVE) Serum Ketones (NEGATIVE) 08/20/22 08/20/22 08/20/22 Range/Units 14:13 14:13 14:13 WBC (4.8-10.8) x10^3/uL RBC (4.70-6.10) 10^6/uL Hgb (14.0-18.0) g/dL Hct (42.0-52.0) % MCV (80.0-94.0) fL MCH (27.0-31.0) pg MCHC (32.0-36.0) g/dL RDW (12.0-15.0) % Plt Count (130-450) 10^3/uL MPV (7.4-11.4) fL Neut # (Auto) (1.5-6.6) 10^3/uL Lymph # (Auto) (1.5-3.5) 10^3/uL [place] # (Auto) (0.0-1.0) 10^3/uL Eos # (Auto) (0.0-0.7) 10^3/uL Baso # (Auto) (0.0-0.1) 10^3/uL Absolute Nucleated RBC x10^3/uL Nucleated RBC % /100WBC Platelet Estimate (NORMAL) VBG pH (7.31-7.41) Ionized Calcium (1.15-1.33) mmol/L Sodium 138 (135-145) mmol/L Potassium 3.9 (3.5-5.0) mmol/L Chloride 100 L (101-111) mmol/L Carbon Dioxide 23 (21-32) mmol/L Anion Gap 15.0 H (6-13) BUN 12 (6-20) mg/dL Creatinine 0.8 (0.6-1.2) mg/dL Estimated GFR (MDRD) 96 (>89) Glucose 316 H (70-100) mg/dL POC Whole Bld Glucose (70 - 100) mg/dL Estimat Average Glucose (70-100) mg/dL Hemoglobin A1c % (4.27-6.07) % Lactic Acid 1.3 (0.5-2.2) mmol/L Calcium 8.7 (8.5-10.3) mg/dL Phosphorus (2.5-4.6) mg/dL Magnesium (1.7-2.8) mg/dL Total Bilirubin 1.3 H (0.2-1.0) mg/dL AST 11 (10-42) IU/L ALT 13 (10-60) IU/L Alkaline Phosphatase 87 (42-121) IU/L Total Protein 6.8 (6.7-8.2) g/dL Albumin 3.2 (3.2-5.5) g/dL Globulin 3.6 (2.1-4.2) g/dL Albumin/Globulin Ratio 0.9 L (1.0-2.2) Lipase 27 (22-51) U/L TSH 2.00 (0.34-5.60) uIU/mL Urine Color Urine Clarity (CLEAR) Urine pH (5.0-7.5) PH Ur Specific [place] (1.002-1.030) Urine Protein (NEGATIVE) mg/dL Urine Glucose (UA) (NEGATIVE) mg/dL Urine Ketones (NEGATIVE) mg/dL Urine Occult Blood (NEGATIVE) Urine Nitrite (NEGATIVE) Urine Bilirubin (NEGATIVE) Urine Urobilinogen (NORMAL) E.U./dL Ur Leukocyte Esterase (NEGATIVE) Urine RBC (0-5) /HPF Urine WBC (0-3) /HPF Ur Squamous Epith Cells (<= Few) Urine Bacteria (None Seen) /HPF Urine Casts /LPF Ur Microscopic Review Urine Culture Comments Nasal Screen MRSA (PCR) (NEGATIVE) Serum Ketones (NEGATIVE) Assessment/Plan - Problem List (1) Perianal abscess Impression: feeling much improved after I and D yesterday. ok to d/c home without antibiotics when medically stable otherwise. follow up surgery in 2 weeks and prn any concerns pad once a day and prn perianal area until no more drainage. may get the area wet. packing the incision area not necessary
--- NOTE | 2022-08-21 19:22 | PROVIDER PROGRESS NOTE ---
Assessment/Plan - Problem List (1) Perianal abscess Assessment/Plan: He has had this before, as per history. CT abdomen/pelvis did not show any fistulas or other findings within the peritoneum Dr. Corona of General Surgery drained it today in the ER, has packed it. Patient told me today that Dr. Corona wants the packing removed and the wound opened Plan: Await blood cultureresults that were drawn in the ER before the debridement Await the culture from the wound Cont empiric antibiotics including IV Vanco to cover possible MRSA and continue with IV Zosyn Await culture results to tailor antibiotics (2) DM type 2 (diabetes mellitus, type 2) Conclusion/Plan: As per history. Plan: Continue management for DKA and then will transition to oral meds plus insulin again. Nutrition consult for diabetic teaching Check A1c (3) Noncompliance with diabetes treatment Conclusion/Plan: Patient admitted he has not been on his insulin diabetic management for 18 months Plan: Because there is suspicion that he is severely depressed, I will request social work to see him (4) Poor personal hygiene Conclusion/Plan: The patient is disheveled and poorly kempt. He is cachectic and [facility] an nearly no diet. It is not known how much weight he has lost over the past year or 2. Plan: Nutrition consult ordered A shower and overall nursing care to be started Because of poor personal hygiene, depression is suspected. I will request social work consult to determine if he has major depression (5) Cachexia Conclusion/Plan: This patient's BMI is 16.4. Plan: I will order social work consult and nutrition consult (6) Type 2 diabetes mellitus with ketoacidosis without coma Conclusion/Plan: RESOLVED The patient admitted he has not taken insulin for 18 months. It is not known if he follows a diabetic diet however he did state that he was overall not eating. He is emaciated and poorly kempt. Today his lab work shows that he has positive serum ketones and has elevated AG of 15 and his glucoses are running in the low 200 Possibly the rectal abscess has now pushed him into DKA Plan: He has been moved to [facility] status - Current Meds Current Meds: Current Medications Generic Name Dose Route Start Last Admin Trade Name Freq PRN Reason Stop Dose Admin Piperacillin Sod/Tazobactam 100 mls @ 200 mls/hr 08/20/22 22:00 08/21/22 16:35 Sod 3.375 gm/ Sodium Chloride IV Infused Q6H TODD Infusion Vancomycin HCl 1 gm/ Sodium 250 mls @ 250 mls/hr 08/21/22 08:00 08/21/22 09:40 Chloride IV Infused Q12H TODD Infusion Insulin Human Lispro 1 - 9 unit 08/21/22 17:11 08/21/22 17:30 Insulin Lispro 300 Unit/3 Ml Pen SUBQ 9 unit 0800,1200,1700,2100 TODD Administration Protocol Multivitamins/Minerals 1 tab 08/21/22 11:00 08/21/22 11:55 Multivitamin W/Minerals Tablet PO 1 tab DAILYWM TODD Administration Nicotine 1 patch 08/21/22 10:32 08/21/22 11:55 Nicotine 14 Mg Patch TOP 1 patch DAILY TODD Administration Polyethylene Glycol 17 gm 08/21/22 09:00 08/21/22 08:35 Polyethylene Glycol 3350 17 Gm Packet PO 17 gm DAILY TODD Administration Sodium Chloride 10 ml 08/21/22 01:00 08/21/22 17:14 Sodium Chloride Flush 0.9% 10 Ml Syringe IVP Not Given 0100,0900,1700 TODD - Lab Result Fish Bone Diagrams: 08/21/22 03:25 08/22/22 05:09 - Additional Planning My Orders: My Active Orders 08/20/22 18:47 Daily Weight [RC] 0600 Initiate Bowel Care Protocol [RC] QSHIFT Initiate Line Care Protocol [RC] .protocol Initiate Personal Care Protoco [RC] .protocol Ondansetron Inj [Zofran Inj] 4 mg IVP Q6HR PRN Sodium Chloride Flush 0.9% [Normal Saline Flush 0.9%] 10 ml IVP PRN PRN Code Status [OTHERS] Routine Condition of Patient [OTHERS] Routine DVT Prophylaxis [OTHERS] Routine 08/20/22 18:48 Vital Signs [RC] Q4HR 08/20/22 18:50 Oxygen Therapy [RC] .PRN SCDs [RC] QSHIFT 08/20/22 18:51 Initiate Hypoglycemia Protocol [RC] .protocol Initiate Line Care Protocol [RC] QSHIFT Acetaminophen [Tylenol] 650 mg PO Q4HR PRN 08/20/22 22:00 Piperacillin/Tazobactam [Zosyn] 3.375 gm Sodium Chloride 0.9% Minibag [Normal Saline 0.9% Minibag] 100 ml IV Q6H 08/21/22 01:00 Sodium Chloride Flush 0.9% [Normal Saline Flush 0.9%] 10 ml IVP 0100,0900,1700 08/21/22 07:52 Blood Glucose Checks - Eating [RC] 0800,1200,1700,2100 08/21/22 08:00 Vancomycin Inj [Vancomycin] 1 gm Sodium Chloride 0.9% [Normal Saline 0.9%] 250 ml IV Q12H 08/21/22 09:00 polyethylene glycoL 3350 [Miralax] 17 gm PO DAILY 08/21/22 10:32 Orthostatic [Vital Signs - Orthostatic] [RC] QSHIFT Nicotine 14 mg Patch [Nicoderm] 1 patch TOP DAILY 08/21/22 11:00 Multivitamin W/Minerals [Theragran M] 1 tab PO DAILYWM 08/21/22 Lunch Carb-controlled Diet [DIET] 08/21/22 17:11 Insulin Lispro [Humalog Kwikpen U-100] 1 - 9 unit SUBQ 0800,1200,1700,2100 08/22/22 05:00 BMP - BASIC METABOLIC PANEL [CHEM] DAILYLAB MAGNESIUM [CHEM] DAILYLAB PHOSPHORUS [CHEM] DAILYLAB 08/23/22 05:00 MAGNESIUM [CHEM] DAILYLAB PHOSPHORUS [CHEM] DAILYLAB 08/24/22 05:00 MAGNESIUM [CHEM] DAILYLAB PHOSPHORUS [CHEM] DAILYLAB 08/25/22 05:00 MAGNESIUM [CHEM] DAILYLAB 08/26/22 05:00 MAGNESIUM [CHEM] DAILYLAB Subjective - Subjective Patient Reports: Feeling Better (Much less pain in the rectal area. Has a good appetite) Objective Vital Signs: Vital Signs - 24 hr 08/20/22 08/20/22 08/20/22 19:45 20:00 21:00 Temperature 36.7 C Heart Rate [ Brachial] Heart Rate [ 75 80 79 Monitoring electrodes] Respiratory 14 15 15 Rate Blood Pressure [Left Brachial artery] Blood Pressure 164/84 H 158/77 H 138/69 H [Right Brachial artery] O2 Saturation 100 99 99 08/20/22 08/20/22 08/21/22 22:00 23:00 00:00 Temperature Heart Rate [ Brachial] Heart Rate [ 83 73 79 Monitoring electrodes] Respiratory 13 15 18 Rate Blood Pressure [Left Brachial artery] Blood Pressure 115/70 117/90 H 154/92 H [Right Brachial artery] O2 Saturation 99 98 97 08/21/22 08/21/22 08/21/22 01:00 02:00 03:00 Temperature Heart Rate [ Brachial] Heart Rate [ 76 76 82 Monitoring electrodes] Respiratory 13 15 19 Rate Blood Pressure [Left Brachial artery] Blood Pressure 116/99 H 115/62 118/70 [Right Brachial artery] O2 Saturation 96 97 98 08/21/22 08/21/22 08/21/22 04:00 05:00 06:00 Temperature 37.0 C Heart Rate [ Brachial] Heart Rate [ 72 74 73 Monitoring electrodes] Respiratory 14 14 14 Rate Blood Pressure 116/64 108/55 L 114/65 [Left Brachial artery] Blood Pressure [Right Brachial artery] O2 Saturation 99 99 98 08/21/22 08/21/22 08/21/22 07:00 08:00 13:00 Temperature 37.4 C 37.0 C Heart Rate [ Brachial] Heart Rate [ 71 72 Monitoring electrodes] Respiratory 16 16 Rate Blood Pressure 130/75 124/86 H [Left Brachial artery] Blood Pressure [Right Brachial artery] O2 Saturation 98 98 08/21/22 15:55 Temperature 36.5 C Heart Rate [ 84 Brachial] Heart Rate [ Monitoring electrodes] Respiratory 18 Rate Blood Pressure [Left Brachial artery] Blood Pressure 152/73 H [Right Brachial artery] O2 Saturation 100 Oxygen O2 Source Room air I&O (Last 24 Hrs): Intake and Output Totals x24h 08/19/22 08/20/22 08/21/22 23:59 23:59 23:59 Intake Total 0070.910 9939.956 Output Total 850 775 Balance 455.480 6830.956 General: Alert, Oriented x3 HEENT: Mucous membr. moist/pink, Other (Cachectic. Appears older than stated age. Has long white hair, male pattern baldness, long white nelson) Neck: Supple Neuro: Alert, Non Focal Cardiovascular: No murmurs Respiratory: No respiratory distress Abdomen: Soft, No tenderness Extremities: No clubbing, No edema, No tenderness/swelling - Results Results: Laboratory Results WBC 9.4 x10^3/uL (4.8-10.8) 08/21/22 03:25 RBC 4.10 10^6/uL (4.70-6.10) L 08/21/22 03:25 Hgb 13.2 g/dL (14.0-18.0) L 08/21/22 03:25 Hct 39.6 % (42.0-52.0) L 08/21/22 03:25 MCV 96.6 fL (80.0-94.0) H 08/21/22 03:25 MCH 32.2 pg (27.0-31.0) H 08/21/22 03:25 MCHC 33.3 g/dL (32.0-36.0) 08/21/22 03:25 RDW 13.5 % (12.0-15.0) 08/21/22 03:25 Plt Count 247 10^3/uL (130-450) 08/21/22 03:25 MPV 10.3 fL (7.4-11.4) 08/21/22 03:25 Neut # (Auto) 7.4 10^3/uL (1.5-6.6) H 08/21/22 03:25 Lymph # (Auto) 1.2 10^3/uL (1.5-3.5) L 08/21/22 03:25 [place] # (Auto) 0.5 10^3/uL (0.0-1.0) 08/21/22 03:25 Eos # (Auto) 0.1 10^3/uL (0.0-0.7) 08/21/22 03:25 Baso # (Auto) 0.1 10^3/uL (0.0-0.1) 08/21/22 03:25 Absolute Nucleated RBC 0.00 x10^3/uL 08/21/22 03:25 Nucleated RBC % 0.0 /100WBC 08/21/22 03:25 Platelet Estimate NORMAL (130-450,000) (NORMAL) 08/21/22 03:25 VBG pH 7.426 (7.31-7.41) H 08/21/22 07:30 Ionized Calcium 1.11 mmol/L (1.15-1.33) L 08/21/22 07:30 Sodium 139 mmol/L (135-145) 08/21/22 03:25 Potassium 3.5 mmol/L (3.5-5.0) 08/21/22 03:25 Chloride 106 mmol/L (101-111) 08/21/22 03:25 Carbon Dioxide 25 mmol/L (21-32) 08/21/22 03:25 Anion Gap 8.0 (6-13) 08/21/22 03:25 BUN 13 mg/dL (6-20) 08/21/22 03:25 Creatinine 0.6 mg/dL (0.6-1.2) 08/21/22 03:25 Estimated GFR (MDRD) 134 (>89) 08/21/22 03:25 Glucose 287 mg/dL (70-100) H 08/21/22 03:25 POC Whole Bld Glucose 346 mg/dL (70 - 100) H 08/21/22 16:53 Estimat Average Glucose 367 mg/dL (70-100) H 08/20/22 14:13 Hemoglobin A1c % 14.4 % (4.27-6.07) H 08/20/22 14:13 Lactic Acid 1.3 mmol/L (0.5-2.2) 08/20/22 14:13 Calcium 8.0 mg/dL (8.5-10.3) L 08/21/22 03:25 Phosphorus 2.8 mg/dL (2.5-4.6) 08/21/22 15:50 Magnesium 1.8 mg/dL (1.7-2.8) 08/21/22 07:30 Total Bilirubin 1.3 mg/dL (0.2-1.0) H 08/20/22 14:13 AST 11 IU/L (10-42) 08/20/22 14:13 ALT 13 IU/L (10-60) 08/20/22 14:13 Alkaline Phosphatase 87 IU/L (42-121) 08/20/22 14:13 Total Protein 6.8 g/dL (6.7-8.2) 08/20/22 14:13 Albumin 3.2 g/dL (3.2-5.5) 08/20/22 14:13 Globulin 3.6 g/dL (2.1-4.2) 08/20/22 14:13 Albumin/Globulin Ratio 0.9 (1.0-2.2) L 08/20/22 14:13 Lipase 27 U/L (22-51) 08/20/22 14:13 TSH 2.00 uIU/mL (0.34-5.60) 08/20/22 14:13 Urine Color YELLOW 08/20/22 14:35 Urine Clarity CLEAR (CLEAR) 08/20/22 14:35 Urine pH 5.5 PH (5.0-7.5) 08/20/22 14:35 Ur Specific [place] 1.020 (1.002-1.030) 08/20/22 14:35 Urine Protein 30 mg/dL (NEGATIVE) H 08/20/22 14:35 Urine Glucose (UA) >=1000 mg/dL (NEGATIVE) H 08/20/22 14:35 Urine Ketones 40 mg/dL (NEGATIVE) H 08/20/22 14:35 Urine Occult Blood NEGATIVE (NEGATIVE) 08/20/22 14:35 Urine Nitrite NEGATIVE (NEGATIVE) 08/20/22 14:35 Urine Bilirubin NEGATIVE (NEGATIVE) 08/20/22 14:35 Urine Urobilinogen 0.2 (NORMAL) E.U./dL (NORMAL) 08/20/22 14:35 Ur Leukocyte Esterase NEGATIVE (NEGATIVE) 08/20/22 14:35 Urine RBC None Seen /HPF (0-5) 08/20/22 14:35 Urine WBC 0-3 /HPF (0-3) 08/20/22 14:35 Ur Squamous Epith Cells FEW Squamous (<= Few) 08/20/22 14:35 Urine Bacteria Few /HPF (None Seen) 08/20/22 14:35 Urine Casts 0-2 Hyaline Casts /LPF 08/20/22 14:35 Ur Microscopic Review INDICATED 08/20/22 14:35 Urine Culture Comments NOT INDICATED 08/20/22 14:35 Nasal Screen MRSA (PCR) NEGATIVE (NEGATIVE) 08/20/22 19:35 Serum Ketones NEGATIVE (NEGATIVE) 08/21/22 07:30
[2022-08-21] MEDS ORDERED: INSULIN GLARGINE-YFGN 300 UNIT/3 ML PEN SUBQ STA (22:45)
--- NOTE | 2022-08-21 22:47 | PROVIDER PROGRESS NOTE ---
Hospitalist Cross-cover Note - Cross-Cover Note Cross-Cover Note: Called by RN stating "Pt BG 396. Sugars have been trending up all day after stopping insulin drip. All >300 since noon. How many units of insulin would you like me to give him now?" Patient started on Lantus 10 mg sq qhs
[2022-08-22] MEDS: PIPERACILLIN/TAZOBACTAM 3.375 GM in SODIUM CHLORIDE 0.9% MINIBAG 100 ML IV SCH ×2 (04:45→11:03)
[2022-08-22 05:43] LABS: CALCIUM 8.3 mg/dL (8.5-10.3); CREATININE 0.5 mg/dL (0.6-1.2); MAGNESIUM 1.9 mg/dL (1.7-2.8); PHOSPHORUS 2.8 mg/dL (2.5-4.6)
[2022-08-22] MEDS: MULTIVITAMIN W/MINERALS TABLET PO SCH (08:15)
[2022-08-22] MEDS: NICOTINE 14 MG PATCH TOP SCH (08:15)
[2022-08-22] MEDS: VANCOMYCIN INJ 1 GM in SODIUM CHLORIDE 0.9% 250 ML IV SCH (08:15)
[2022-08-22] MEDS: SODIUM CHLORIDE FLUSH 0.9% 10 ML SYRINGE IVP SCH ×3 (08:16→23:46)
[2022-08-22] MEDS: polyethylene glycoL 3350 17 GM PACKET PO SCH (08:16)
[2022-08-22] MEDS: INSULIN LISPRO 300 UNIT/3 ML PEN SUBQ SCH ×4 (08:19→21:01)
--- NOTE | 2022-08-22 08:51 | PROVIDER PROGRESS NOTE ---
Assessment/Plan - Problem List (1) Perianal abscess Assessment/Plan: He has had this before, as per history. CT abdomen/pelvis did not show any fistulas or other findings within the peritoneum Dr. Corona of General Surgery drained it today in the ER, has packed it. Plan: Await blood culture results that were drawn in the ER before the debridement Await the culture from the wound Stop his empiric IV antibiotics. Augmentin twice daily will be started today. This was discussed with pharmacy today Await culture results to tailor antibiotics I anticipate he may be ready for discharge tomorrow (2) Orthostatic hypotension His RN gave me information that the patient "falls frequently at home". Ask him about this and he says possibly he gets weak before he falls, there is never been syncope Plan: I will give an IV saline bolus Continue to measure orthostatic vital signs every shift (3) DM type 2 (diabetes mellitus, type 2) Conclusion/Plan: I had stopped his long-acting insulin 10 units every evening, when he had a morning glucose of 60 Today his afternoon glucose was 415 Plan: Restart Long-acting insulin at 4 units every evening Start metformin 500 mg twice daily Reviewed this plan with the patient, he agrees to be compliant with it. He even asks for new lancets, glucometer and glucose strips for monitoring his sugars after discharge (4) Cachexia Conclusion/Plan: He is cachectic and admitted to taking an nearly no diet. It is not known how much weight he has lost over the past year or 2. This patient's BMI is 16.4. Plan: Nutrition consult to see (5) Noncompliance with diabetes treatment Conclusion/Plan: Patient admitted he has not been on his insulin diabetic management for 18 months Because there was suspicion that he is severely depressed, I got social work to see him. Evaluation shows he is not depressed Plan: I reviewed the treatment plan after discharge of Metformin, Insulin and antibioticswith the patient, he agrees to be compliant with it. He even asks for new lancets, glucometer and glucose strips for monitoring his sugars after discharge (6) Type 2 diabetes mellitus with ketoacidosis without coma Conclusion/Plan: RESOLVED The patient admitted he has not taken insulin for 18 months. It is not known if he follows a diabetic diet however he did state that he was overall not eating. He is emaciated and poorly kempt. His lab work showed that he has positive serum ketones and has elevated AG of 15 and his glucoses are running 200-400 Possibly the rectal abscess has now pushed him into DKA - Current Meds Current Meds: Current Medications Generic Name Dose Route Start Last Admin Trade Name Krista PRN Reason Stop Dose Admin Piperacillin Sod/Tazobactam 100 mls @ 200 mls/hr 08/20/22 22:00 08/22/22 04:45 Sod 3.375 gm/ Sodium Chloride IV 200 mls/hr Q6H TODD Administration Vancomycin HCl 1 gm/ Sodium 250 mls @ 250 mls/hr 08/21/22 08:00 08/22/22 08:15 Chloride IV 250 mls/hr Q12H TODD Administration Insulin Human Lispro 1 - 9 unit 08/21/22 17:11 08/22/22 08:19 Insulin Lispro 300 Unit/3 Ml Pen SUBQ 2 unit 0800,1200,1700,2100 TODD Administration Protocol Multivitamins/Minerals 1 tab 08/21/22 11:00 08/22/22 08:15 Multivitamin W/Minerals Tablet PO 1 tab DAILYWM TODD Administration Nicotine 1 patch 08/21/22 10:32 08/22/22 08:15 Nicotine 14 Mg Patch TOP 1 patch DAILY TODD Administration Polyethylene Glycol 17 gm 08/21/22 09:00 08/22/22 08:16 Polyethylene Glycol 3350 17 Gm Packet PO 17 gm DAILY TODD Administration Sodium Chloride 10 ml 08/21/22 01:00 08/22/22 08:16 Sodium Chloride Flush 0.9% 10 Ml Syringe IVP 10 ml 0100,0900,1700 TODD Administration - Lab Result Fish Bone Diagrams: 08/21/22 03:25 08/22/22 05:09 - Additional Planning My Orders: My Active Orders 08/21/22 07:52 Blood Glucose Checks - Eating [RC] 0800,1200,1700,2100 08/21/22 08:00 Vancomycin Inj [Vancomycin] 1 gm Sodium Chloride 0.9% [Normal Saline 0.9%] 250 ml IV Q12H 08/21/22 09:00 polyethylene glycoL 3350 [Miralax] 17 gm PO DAILY 08/21/22 10:32 Orthostatic [Vital Signs - Orthostatic] [RC] QSHIFT Nicotine 14 mg Patch [Nicoderm] 1 patch TOP DAILY 08/21/22 11:00 Multivitamin W/Minerals [Theragran M] 1 tab PO DAILYWM 08/21/22 Lunch Carb-controlled Diet [DIET] 08/21/22 17:11 Insulin Lispro [Humalog Kwikpen U-100] 1 - 9 unit SUBQ 0800,1200,1700,2100 08/22/22 08:50 metFORMIN [Glucophage] 500 mg PO BIDWM 08/23/22 05:00 MAGNESIUM [CHEM] DAILYLAB PHOSPHORUS [CHEM] DAILYLAB 08/24/22 05:00 MAGNESIUM [CHEM] DAILYLAB PHOSPHORUS [CHEM] DAILYLAB 08/25/22 05:00 MAGNESIUM [CHEM] DAILYLAB 08/26/22 05:00 MAGNESIUM [CHEM] DAILYLAB Subjective - Subjective Patient Reports: Feeling Better, No Complaints Objective Vital Signs: Vital Signs - 24 hr 08/21/22 08/21/22 08/21/22 13:00 15:55 21:00 Temperature 37.0 C 36.5 C 37.1 C Heart Rate [ 84 76 Brachial] Heart Rate [ 72 Monitoring electrodes] Respiratory 16 18 18 Rate Blood Pressure 124/86 H 130/74 [Left Brachial artery] Blood Pressure 152/73 H [Right Brachial artery] O2 Saturation 98 100 97 08/22/22 08/22/22 08/22/22 00:07 05:00 07:57 Temperature 36.8 C 36.5 C 36.5 C Heart Rate [ 73 68 62 Brachial] Heart Rate [ Monitoring electrodes] Respiratory 16 16 18 Rate Blood Pressure 124/60 144/67 H 158/81 H [Left Brachial artery] Blood Pressure [Right Brachial artery] O2 Saturation 98 99 98 Oxygen O2 Source Room air I&O (Last 24 Hrs): Intake and Output Totals x24h 08/20/22 08/21/22 08/22/22 23:59 23:59 23:59 Intake Total 9548.810 3808.956 Output Total 850 1375 1150 Balance 422.719 1536.956 -1150 General: Alert, Oriented x3 HEENT: Mucous membr. moist/pink, Other (Cachectic, appears older than his stated age, has long white hair and long white neslon) Neck: Supple Neuro: Alert, Non Focal Cardiovascular: Regular rate Respiratory: No respiratory distress, Breath sounds nml Abdomen: Soft Genitourinary: Other (As per RN) Extremities: No clubbing, No edema, No tenderness/swelling - Results Results: Laboratory Results WBC 9.4 x10^3/uL (4.8-10.8) 08/21/22 03:25 RBC 4.10 10^6/uL (4.70-6.10) L 08/21/22 03:25 Hgb 13.2 g/dL (14.0-18.0) L 08/21/22 03:25 Hct 39.6 % (42.0-52.0) L 08/21/22 03:25 MCV 96.6 fL (80.0-94.0) H 08/21/22 03:25 MCH 32.2 pg (27.0-31.0) H 08/21/22 03:25 MCHC 33.3 g/dL (32.0-36.0) 08/21/22 03:25 RDW 13.5 % (12.0-15.0) 08/21/22 03:25 Plt Count 247 10^3/uL (130-450) 08/21/22 03:25 MPV 10.3 fL (7.4-11.4) 08/21/22 03:25 Neut # (Auto) 7.4 10^3/uL (1.5-6.6) H 08/21/22 03:25 Lymph # (Auto) 1.2 10^3/uL (1.5-3.5) L 08/21/22 03:25 [place] # (Auto) 0.5 10^3/uL (0.0-1.0) 08/21/22 03:25 Eos # (Auto) 0.1 10^3/uL (0.0-0.7) 08/21/22 03:25 Baso # (Auto) 0.1 10^3/uL (0.0-0.1) 08/21/22 03:25 Absolute Nucleated RBC 0.00 x10^3/uL 08/21/22 03:25 Nucleated RBC % 0.0 /100WBC 08/21/22 03:25 Platelet Estimate NORMAL (130-450,000) (NORMAL) 08/21/22 03:25 VBG pH 7.426 (7.31-7.41) H 08/21/22 07:30 Ionized Calcium 1.11 mmol/L (1.15-1.33) L 08/21/22 07:30 Sodium 136 mmol/L (135-145) 08/22/22 05:09 Potassium 4.0 mmol/L (3.5-5.0) 08/22/22 05:09 Chloride 103 mmol/L (101-111) 08/22/22 05:09 Carbon Dioxide 27 mmol/L (21-32) 08/22/22 05:09 Anion Gap 6.0 (6-13) 08/22/22 05:09 BUN 13 mg/dL (6-20) 08/22/22 05:09 Creatinine 0.5 mg/dL (0.6-1.2) L 08/22/22 05:09 Estimated GFR (MDRD) 165 (>89) 08/22/22 05:09 Glucose 110 mg/dL (70-100) H 08/22/22 05:09 POC Whole Bld Glucose 181 mg/dL (70 - 100) H 08/22/22 07:40 Estimat Average Glucose 367 mg/dL (70-100) H 08/20/22 14:13 Hemoglobin A1c % 14.4 % (4.27-6.07) H 08/20/22 14:13 Lactic Acid 1.3 mmol/L (0.5-2.2) 08/20/22 14:13 Calcium 8.3 mg/dL (8.5-10.3) L 08/22/22 05:09 Phosphorus 2.8 mg/dL (2.5-4.6) 08/22/22 05:09 Magnesium 1.9 mg/dL (1.7-2.8) 08/22/22 05:09 Total Bilirubin 1.3 mg/dL (0.2-1.0) H 08/20/22 14:13 AST 11 IU/L (10-42) 08/20/22 14:13 ALT 13 IU/L (10-60) 08/20/22 14:13 Alkaline Phosphatase 87 IU/L (42-121) 08/20/22 14:13 Total Protein 6.8 g/dL (6.7-8.2) 08/20/22 14:13 Albumin 3.2 g/dL (3.2-5.5) 08/20/22 14:13 Globulin 3.6 g/dL (2.1-4.2) 08/20/22 14:13 Albumin/Globulin Ratio 0.9 (1.0-2.2) L 08/20/22 14:13 Lipase 27 U/L (22-51) 08/20/22 14:13 TSH 2.00 uIU/mL (0.34-5.60) 08/20/22 14:13 Urine Color YELLOW 08/20/22 14:35 Urine Clarity CLEAR (CLEAR) 08/20/22 14:35 Urine pH 5.5 PH (5.0-7.5) 08/20/22 14:35 Ur Specific [place] 1.020 (1.002-1.030) 08/20/22 14:35 Urine Protein 30 mg/dL (NEGATIVE) H 08/20/22 14:35 Urine Glucose (UA) >=1000 mg/dL (NEGATIVE) H 08/20/22 14:35 Urine Ketones 40 mg/dL (NEGATIVE) H 08/20/22 14:35 Urine Occult Blood NEGATIVE (NEGATIVE) 08/20/22 14:35 Urine Nitrite NEGATIVE (NEGATIVE) 08/20/22 14:35 Urine Bilirubin NEGATIVE (NEGATIVE) 08/20/22 14:35 Urine Urobilinogen 0.2 (NORMAL) E.U./dL (NORMAL) 08/20/22 14:35 Ur Leukocyte Esterase NEGATIVE (NEGATIVE) 08/20/22 14:35 Urine RBC None Seen /HPF (0-5) 08/20/22 14:35 Urine WBC 0-3 /HPF (0-3) 08/20/22 14:35 Ur Squamous Epith Cells FEW Squamous (<= Few) 08/20/22 14:35 Urine Bacteria Few /HPF (None Seen) 08/20/22 14:35 Urine Casts 0-2 Hyaline Casts /LPF 08/20/22 14:35 Ur Microscopic Review INDICATED 08/20/22 14:35 Urine Culture Comments NOT INDICATED 08/20/22 14:35 Nasal Screen MRSA (PCR) NEGATIVE (NEGATIVE) 08/20/22 19:35 Serum Ketones NEGATIVE (NEGATIVE) 08/21/22 07:30
[2022-08-22] MEDS: metFORMIN 500 MG TABLET PO SCH ×2 (09:00→16:56)
[2022-08-22] MEDS ORDERED: SODIUM CHLORIDE 0.9% 500 ML IV ONE (09:32)
[2022-08-22] MEDS: AMOX/CLAV 875 MG/125 MG TABLET PO SCH ×2 (10:51→21:00)
[2022-08-22] MEDS ORDERED: INSULIN LISPRO 300 UNIT/3 ML PEN SUBQ SCH (12:00)
[2022-08-22] MEDS ORDERED: INSULIN GLARGINE-YFGN 300 UNIT/3 ML PEN SUBQ SCH (21:00)
[2022-08-23 05:24] LABS: MAGNESIUM 1.8 mg/dL (1.7-2.8); PHOSPHORUS 3.3 mg/dL (2.5-4.6)
[2022-08-23 07:51] VITALS: BP 150/78
[2022-08-23] MEDS: INSULIN LISPRO 300 UNIT/3 ML PEN SUBQ SCH (08:25)
--- NOTE | 2022-08-23 08:25 | Discharge Plan ---
Discharge Plan Problem Reviewed?: Yes Disposition: Home, Self Care Condition: Fair Prescriptions: Amox/Clav 875/125 [Augmentin 875/125 Tab] 1 tab PO BID #9 tab Blood-Glucose Meter [Glucometer] 1 each ACHS #1 each metFORMIN [Glucophage] 1,000 mg PO BIDWM #120 tab Insulin Detemir [Levemir Flexpen] 8 unit SQ QPM #1 each Lancet/Gluc Test Strip/[place] [Tempo Refill Kit] 1 each ACHS #120 packet Diet: Diabetic Activity Restrictions: Activity as Tolerated Shower Restrictions: No Driving Restrictions: No Weight Bearing: Full Weight Instruction Topics: ED Hypotension Orthostatic Health Concerns: You are hospitalized because of the abscess, that needed to be drained by the general surgeon in the emergency room, because you to go into diabetic ketoacidosis. This was also from not being on insulin for 18 months. You are being discharged home to take several more days of oral antibiotics. Also new prescriptions have electronically been sent to your pharmacy for metformin, nightly insulin, a new glucometer, lancets and glucometer strips. We found you to be very dehydrated, this probably caused your falls. Please drink more fluids, especially electrolyte-containing fluids. Please see your primary care provider in the next 1 to 3 weeks for hospital follow-up visit. You may need adjustment of some of your medication doses going forward. Plan of Treatment: As above. Care Goals: Improvement in symptoms and stabilization are the goals. Assessment: The patient understands and is agreeable with the plan. Additional Instructions or Follow Up instructions: If you have new or worsening symptoms, call your primary care provider for advice, or come to the ER. No Smoking: If you smoke, Please STOP! Call for help.
[2022-08-23] MEDS: NICOTINE 14 MG PATCH TOP SCH (08:26)
[2022-08-23] MEDS: AMOX/CLAV 875 MG/125 MG TABLET PO SCH (08:26)
[2022-08-23] MEDS: metFORMIN 500 MG TABLET PO SCH (08:26)
[2022-08-23] MEDS: MULTIVITAMIN W/MINERALS TABLET PO SCH (08:26)
[2022-08-23] MEDS: polyethylene glycoL 3350 17 GM PACKET PO SCH (08:27)
[2022-08-23] MEDS: SODIUM CHLORIDE FLUSH 0.9% 10 ML SYRINGE IVP SCH (08:27)
--- NOTE | 2022-08-23 09:26 | DISCHARGE SUMMARY ---
Discharge Summary Admit Date: 08/20/22 Discharge Date: 08/23/22 Discharging Provider: Dr Marti Leach Primary Care Provider: Jena Hoffman NP Condition at Discharge: Stable Discharge Disposition: 01 Home, Self Care - HPI History of Present Illness: This is a 67-year-old male with a history of insulin-dependent diabetes. He admits he has not been taking insulin for 18 months for various reasons: because he caught COVID and was isolated, and because of admittedly being depressed. He has had a history of prior anal abscesses that have been treated and healed without complications. The patient developed swelling in the perianal area and noted that his glucose was elevated and came to the ER today. Work-up shows that he has a glucose of 316, positive serum ketones, elevated anion gap of [address] abdomen/pelvis shows that he has a 4 cm x 3 cm perianal abscess. He den ied a fever. His white blood count and Lactic Acid levele were normal. The General Surgeon was contacted who saw him in consult and performed incision and drainage of the abscess in the ED under anesthesia. The wound was packed. The patient had blood cultures sent off and was started on Insulin, IV fluids and IV Zosyn. The ED provider reached out to me on the Hospitalist team and we spoke about this patient. He will be admitted to the hospital to manage DKA, perianal abscess, and medication noncompliance with poor personal hygiene and emaciation, consistent with major depression. - HOSPITAL COURSE Hospital Course: (1) Type 2 diabetes mellitus with ketoacidosis (DKA) without coma The patient admitted he had not taken insulin for 18 months. It is not known if he followeed a diabetic diet, and he admitted that he was not eating in general. He presented emaciated and poorly kempt. His lab work showed positive serum k etones, an elevated AG of 15, and his glucoses are running 200-400 Possibly the rectal abscess put him into DKA. He was admitted to the ICU, and put on iv saline and an insulin drip which continued until serum ketones were negative. (2) Perianal abscess He has had this before, as per history. He said this was a small one. CT abdomen/pelvis did not show any fistulas or other findings within the peritoneum Dr. Corona of General Surgery drained it in the ER, and packed it. Pack stated for a few days. He was pit on empiric IV ..., was changed to empiric Augmentin orally. He was discharged to finish a course of Augmentin. Blood cultures were negative to date. (3) Orthostatic hypotension We learned that the patient "falls frequently at home". Orthostatic vital signs were checked and were abnormal. He got saline bolus and IV fluid hydration. He was advised to drink more liquids after discharge, specifically electrolytes. (4) DM type 2 (diabetes mellitus, type 2) When the insulin drip was stopped, he was put on long-acting insulin and sliding scale insulin. Eventually Metformin was resumed at 500 twice daily, then increased to 1000 twice daily, when glu were still 400's. At discharge, he was prescribed Metformin and evening Lantus Insulin. (5) Cachexia He was cachectic and admitted to taking an nearly no diet. The patient's BMI is 16.4. It is not known how much weight he has lost over the past year or 2. He had a good appetite while here. (6) Noncompliance with diabetes treatment Patient admitted he had not taken insulin for diabetic management for 18 months. He says it was because he caught COVID infection and was in isolation, then afterward did not bother to get insulin refilled. I reviewed the treatment plan for after discharge of Metformin, Insulin and antibiotics, with the patient, and he agreed to be compliant with it. He even requested new lancets, glucometer and glucose strips for monitoring his sugars after discharge, and these were ordered. Because I had a suspicion that he was depressed, to explain his non-compliance and his cachexia, I got Social Work to see him. Their evaluation showed he was not depressed. On the day of discharge, however, the patient requested to be put (back on) Amitriptyline. Our pharmacist investigated this and said he has not been on Amitriptyline 25 mg daily, since 2020. I did not reorder it therefore. He needs to see a PCP to ask for this to be prescribed. He told me he thinks he will get a new PCP. - ALLERGIES Allergies/Adverse Reactions: Allergies Allergy/AdvReac Type Severity Reaction Status Date / Time Tetracyclines Allergy Nausea Verified 09/02/20 09:49 - MEDICATIONS Home Medications: Ambulatory Orders Medication Instructions Recorded Confirmed Amox/Clav 875/125 [Augmentin 1 tab PO BID #9 tab 08/23/22 875/125 Tab] Blood-Glucose Meter [Glucometer] 1 each [facility] #1 each 08/23/22 Insulin Detemir [Levemir Flexpen] 8 unit SQ QPM #1 each 08/23/22 Lancet/Gluc Test Strip/[place] 1 each [facility] #120 packet 08/23/22 [Tempo Refill Kit] metFORMIN [Glucophage] 1,000 mg PO BIDWM #120 tab 08/23/22 - PHYSICAL EXAM AT DISCHARGE General Appearance: positive: No acute distress (Cachectic male, appears older than his age.), Alert, Other (Male pattern baldness, long hair otherwise. Long nelson and poorly kempt) Eyes Bilateral: positive: Normal inspection, EOMI ENT: positive: ENT inspection nml, No signs of dehydration Neck: positive: Nml inspection, No JVD Respiratory: positive: No respiratory distress, Breath sounds nml Cardiovascular: positive: Regular rate & rhythm, No murmur Abdomen: positive: Non-tender, Nml bowel sounds, No distention Skin: positive: Warm, Dry Extremities: positive: Non-tender, No pedal edema Neurologic/Psychiatric: positive: Oriented x3, Motor nml - LABS Result Diagrams: 08/21/22 03:25 08/22/22 05:09 - DIAGNOSTIC IMAGING Diagnostic Imaging Results: Final report reviewed - FOLLOW UP Follow Up: He was advised to see his PCP in 1 to 2 weeks. He said he has not seen her in 2 years and thought he would get a new PCP however. - TIME SPENT Time Spent in Discharge (Minutes): 30
[2022-08-23] MEDS ORDERED: INSULIN LISPRO 300 UNIT/3 ML PEN SUBQ SCH (12:00)
== END 2022-08-23 12:24 | disposition home or self-care (01) | DRG 638 ==
LOC: EDUNIT# → ED 13:51 → UNDOADMIN 18:47 → ICU 18:47 → MS2 08-21 14:42
PROVIDERS: ADMIT Internal Medicine; ATTEND Internal Medicine
DX: E11.10 Type 2 diabetes mellitus with ketoacidosis without coma (principal); L02.215 Cutaneous abscess of perineum; R64 Cachexia; R07.9 Chest pain, unspecified; F17.200 Nicotine dependence, unspecified, uncomplicated; F41.9 Anxiety disorder, unspecified; Z68.1 Body mass index [BMI] 19.9 or less, adult; Z91.148 Patient's other noncompliance with medication regimen for other reason; Z91.81 History of falling; T38.3X6A Underdosing of insulin and oral hypoglycemic [antidiabetic] drugs, initial encounter; F32.9 Major depressive disorder, single episode, unspecified; I95.1 Orthostatic hypotension; I10 Essential (primary) hypertension; R46.0 Very low level of personal hygiene; Z86.16 Personal history of COVID-19; Z91.128 Patient's intentional underdosing of medication regimen for other reason
CPT/HCPCS: 10060; 36415; 70450; 71045; 74177; 80048; 80053; 81001; 82009; 82330; 83036; 83605; 83690; 83735; 84100; 84443; 85025; 87040; 87070; 87077; 87150; 87181; 87205; 96365; 99285; A9270; J1815; J3370; Q9967; 81003; 82947; 84132; 87086

== ENCOUNTER 2022-10-01 10:44 | Outpatient (CLI) | payer MEDICARE, MEDICAID ==
[2022-10-01 17:55] LABS: BASOPHILS # (AUTO) 0.1 10^3/uL (0.0-0.1); BASOPHILS % (AUTO) 0.9 %; EOSINOPHILS # (AUTO) 0.3 10^3/uL (0.0-0.7); HCT - HEMATOCRIT 44.2 % (42.0-52.0); HGB - HEMOGLOBIN 14.1 g/dL (14.0-18.0); LYMPHOCYTES % (AUTO) 23.7 %; MEAN CORPUSCULAR HEMOGLOBIN 31.5 pg (27.0-31.0); MEAN CORPUSCULAR HGB CONC 31.9 g/dL (32.0-36.0); MEAN CORPUSCULAR VOLUME 98.7 fL (80.0-94.0); MEAN PLATELET VOLUME 9.3 fL (7.4-11.4); MONOCYTES # (AUTO) 0.6 10^3/uL (0.0-1.0); MONOCYTES % (AUTO) 7.1 %; NEUTROPHILS # (AUTO) 5.3 10^3/uL (1.5-6.6); NEUTROPHILS % (AUTO) 63.5 %; PLT - PLATELET COUNT 351 10^3/uL (130-450); RED BLOOD COUNT 4.48 10^6/uL (4.70-6.10); RED CELL DISTRIBUTION WIDTH 13.7 % (12.0-15.0); WHITE BLOOD COUNT 8.4 x10^3/uL (4.8-10.8)
[2022-10-01 18:02] LABS: ALBUMIN 4.2 g/dL (3.2-5.5)
[2022-10-01 18:05] LABS: CREATININE,URINE 104.1 mg/dL; MICROALBUMIN,URINE 17.7 mg/dL
[2022-10-01 18:11] LABS: ALBUMIN/GLOBULIN RATIO 1.4 (1.0-2.2); BILIRUBIN,TOTAL 0.4 mg/dL (0.2-1.0); CALCIUM 9.5 mg/dL (8.5-10.3); CREATININE 0.7 mg/dL (0.6-1.3); POTASSIUM 4.1 mmol/L (3.5-4.5); TOTAL PROTEIN 7.3 g/dL (6.4-8.9)
[2022-10-01 22:13] LABS: ESTIMATED AVERAGE GLUCOSE 255 mg/dL (70-100); HEMOGLOBIN A1c% 10.5 % (4.27-6.07)
== END 2022-10-01 10:45 | disposition home or self-care (01) ==
LOC: LAB.N 10:44
PROVIDERS: ATTEND Nurse Practitioner
DX: E11.65 Type 2 diabetes mellitus with hyperglycemia (principal); I95.9 Hypotension, unspecified
CPT/HCPCS: 36415; 80053; 82043; 82570; 83036; 85025

== ENCOUNTER 2022-11-09 15:44 | Outpatient (CLI) | payer MEDICARE | END 2022-11-09 15:45 | disposition critical access hospital (66) | LOC: EMS 15:44 | DX: M54.2 Cervicalgia (principal); V47.0XXA Car driver injured in collision with fixed or stationary object in nontraffic accident, initial encounter; Y92.481 Parking lot as the place of occurrence of the external cause | CPT/HCPCS: A0425; A0429 ==

== ENCOUNTER 2022-12-09 14:35 | Outpatient (CLI) | payer MEDICARE | END 2022-12-09 14:36 | disposition critical access hospital (66) | LOC: EMS 14:35 | DX: E11.65 Type 2 diabetes mellitus with hyperglycemia (principal); Z79.4 Long term (current) use of insulin | CPT/HCPCS: A0425; A0427 ==

== ENCOUNTER 2022-12-09 14:56 | Emergency (ER) | payer MEDICARE ==
[2022-12-09 15:27] LABS: BASOPHILS # (AUTO) 0.1 10^3/uL (0.0-0.1); BASOPHILS % (AUTO) 1.3 %; EOSINOPHILS # (AUTO) 0.2 10^3/uL (0.0-0.7); EOSINOPHILS % (AUTO) 3.1 %; HCT - HEMATOCRIT 41.3 % (42.0-52.0); LYMPHOCYTES # (AUTO) 1.2 10^3/uL (1.5-3.5); LYMPHOCYTES % (AUTO) 21.2 %; MEAN CORPUSCULAR HEMOGLOBIN 31.2 pg (27.0-31.0); MEAN CORPUSCULAR HGB CONC 33.9 g/dL (32.0-36.0); MEAN PLATELET VOLUME 9.3 fL (7.4-11.4); MONOCYTES # (AUTO) 0.3 10^3/uL (0.0-1.0); MONOCYTES % (AUTO) 5.3 %; NEUTROPHILS # (AUTO) 3.8 10^3/uL (1.5-6.6); NEUTROPHILS % (AUTO) 68.9 %; PLT - PLATELET COUNT 296 10^3/uL (130-450); RED BLOOD COUNT 4.49 10^6/uL (4.70-6.10); RED CELL DISTRIBUTION WIDTH 12.8 % (12.0-15.0); WHITE BLOOD COUNT 5.5 x10^3/uL (4.8-10.8)
[2022-12-09 15:47] LABS: ALBUMIN/GLOBULIN RATIO 1.7 (1.0-2.2); BILIRUBIN,TOTAL 0.4 mg/dL (0.2-1.0); CALCIUM 9.1 mg/dL (8.5-10.3); CREATININE 1.1 mg/dL (0.6-1.3); POTASSIUM 4.5 mmol/L (3.5-4.5); TOTAL PROTEIN 6.3 g/dL (6.4-8.9)
--- NOTE | 2022-12-09 15:50 | ED Physician Documentation ---
History of Present Illness - Stated complaint Stated Complaint: DIABETIC ISSUE - Chief complaint Chief Complaint: General - History obtained from History obtained from: Patient - Additonal information Additional information: Patient is a 67-year-old male who is insulin-dependent Diabetic presenting for evaluation of feeling like his blood sugar was low earlier today. Patient states that he woke up and had breakfast with rice and beans and that he went to bed around 10 AM which she has been doing here recently. His neighbor was knocking on the door around 2 PM just to check on him which his neighbor usually does. He was outside smoking a cigarette and it was also speaking to a social work instructor from [employer] as well as his [employer] rep and catching him up on his recent life events. He states he started feeling "lousy and dopey" and that they thought he should have his blood sugar checked. He states that his lancets have not been working so he ate 2 cookies. When EMS arrived they noted that his blood sugar was elevated. Patient states he has been out of his insulin for the past week as he recently left [facility] and they did not give him an insulin prescription. He supposed to be taking 25 units of Lantus at night. He states that [place] they also started him on short acting insulin but did not give him a prescription as he was having spikes during the daytime. Patient has been taking his metformin. He denies recent illness. Denies chest pain or shortness of air. Currently states he feels fine. Review of Systems Constitutional: denies: Fever Cardiac: denies: Chest pain / pressure Respiratory: denies: Dyspnea GI: denies: Abdominal Pain, Vomiting : denies: Dysuria Neurologic: reports: Generalized weakness PD PAST MEDICAL HISTORY - Past Medical History Past Medical History: Yes Cardiovascular: Hypertension Respiratory: None Neuro: None Endocrine/Autoimmune: Type 2 diabetes GI: None : None HEENT: None Psych: Depression Musculoskeletal: None Derm: None - Past Surgical History Past Surgical History: Yes HEENT: Tonsil/Adenoidectomy - Present Medications Home Medications: Ambulatory Orders Medication Instructions Recorded Confirmed Blood-Glucose Meter [Glucometer] 1 each ACHS #1 each 08/23/22 11/09/22 Lancet/Gluc Test Strip/[place] [address] [facility] #120 packet 08/23/22 11/09/22 [Tempo Refill Kit] metFORMIN [Glucophage] 1,000 mg PO BIDWM #120 tab 08/23/22 11/09/22 Amitriptyline HCl 75 mg PO HS 11/09/22 11/09/22 Insulin Detemir [Levemir Flexpen] 20 unit SQ QPM 11/09/22 11/09/22 Mirtazapine 15 mg PO HS 11/09/22 11/09/22 Insulin Detemir [Levemir Flexpen] 20 unit SQ QPM #5 each 12/09/22 Lancet/Gluc Strip/Needle/Gauze 1 each ACHS #1 kit 12/09/22 [Tempo Refill Kit (with Gauze)] - Allergies Allergies/Adverse Reactions: Allergies Allergy/AdvReac Type Severity Reaction Status Date / Time Tetracyclines Allergy Nausea Verified 11/09/22 16:13 - Social History Does the pt smoke?: Yes Smoking Status: Current every day smoker Does the pt drink ETOH?: Yes Does the pt have substance abuse?: Yes - Immunizations Immunizations are current?: Yes - POLST Patient has POLST: No PD ED PE NORMAL - General General: Alert and oriented X 3, No acute distress, Well developed/nourished - HEENT HEENT: Atraumatic, Moist mucous membranes, Pharynx benign - Neck Neck: Supple, no meningeal sign - Cardiac Cardiac: RRR, No murmur - Respiratory Respiratory: No respiratory distress, Clear bilaterally - Abdomen Abdomen: Normal bowel sounds, Soft, Non tender, Non distended - Derm Derm: Warm and dry - Neuro Neuro: Alert and oriented X 3, No motor deficit, No sensory deficit, Normal speech Eye Opening: Spontaneous Motor: Obeys Commands Verbal: Oriented GCS Score: 15 Results - Vitals Vitals: Vital Signs - 24 hr 12/09/22 12/09/22 15:08 15:41 Temperature 37.1 C Heart Rate 91 88 Respiratory 17 18 Rate Blood Pressure 133/92 H 115/81 H O2 Saturation 98 99 Oxygen O2 Source Room air - EKG (time done) 1533 EKG releavant findings:: EKG personally interpreted by author of this note. Relevant findings are: Rate 86, normal sinus rhythm, right bundle branch block, no STEMI - Labs Labs: Laboratory Tests 12/09/22 12/09/22 12/09/22 15:03 15:21 15:21 WBC 5.5 RBC 4.49 L Hgb 14.0 Hct 41.3 L MCV 92.0 MCH 31.2 H MCHC 33.9 RDW 12.8 Plt Count 296 MPV 9.3 Neut # (Auto) 3.8 Lymph # (Auto) 1.2 L [place] # (Auto) 0.3 Eos # (Auto) 0.2 Baso # (Auto) 0.1 Absolute Nucleated RBC 0.00 Nucleated RBC % 0.0 Sodium 135 Potassium 4.5 Chloride 99 L Carbon Dioxide 31 Anion Gap 5.0 L BUN 24 H Creatinine 1.1 Estimated GFR (MDRD) 67 L Glucose 406 H POC Whole Bld Glucose 375 H Calcium 9.1 Total Bilirubin 0.4 AST 11 ALT 13 Alkaline Phosphatase 78 Total Protein 6.3 L Albumin 4.0 Globulin 2.3 Albumin/Globulin Ratio 1.7 Lipase 17 PD Medical Decision Making - ED course Complexity details: reviewed results, re-evaluated patient, d/w patient ED course: Patient is a 67-year-old male presenting for evaluation of generalized weakness this afternoon with concerns for low blood sugar. Therefore he ate some sugary food and when EMS arrived his blood sugar was noted to be elevated. He does not have symptoms or lab findings to suggest DKA. He has been out of his insulin for the past 1 week and is supposed to be on nightly Levemir. He did eat this morning. He has been asymptomatic here. He was given IV fluids. We will restart patient on Levemir but he is instructed on importance of checking his blood sugars as well as eating proper meals throughout the day. He is also advised on follow-up with his PCP And concerning symptoms to return for. Departure - Departure Disposition: 01 Home, Self Care Clinical Impression: Hyperglycemia Condition: Stable Instructions: ED Hyperglycemia Diabetic Follow-Up: Jena Hoffman ARNP [Primary Care Provider] - Prescriptions: Insulin Detemir [Levemir Flexpen] 20 unit SQ QPM #5 each Lancet/Gluc Strip/Needle/Gauze [Tempo Refill Kit (with Gauze)] 1 each ACHS #1 kit Comments: You were found to have an elevated blood sugar today. It is unclear if you are having an episode of low blood sugar prior to eating cookies but at this time your blood sugar is higher than the ideal range. I would recommend close follow-up with your primary care provider as it sounds like during her recent hospitalization you were having difficulties with your blood sugars. I have sent a refill of Levemir as well as a new kit for lancets to [facility] in [place]. Please make sure you are eating proper meals especially when starting your insulin and would recommend foods with complex carbohydrates and protein. If at anytime you are having any new or worsening symptoms please return to the emergency department. Forms: PCP List
[2022-12-09] MEDS ORDERED: SODIUM CHLORIDE 0.9% 1,000 ML IV STA (16:06)
[2022-12-09 17:36] VITALS: BP 179/86; O2SAT 100
== END 2022-12-09 17:33 | disposition home or self-care (01) ==
LOC: EDUNIT# → ED 14:56
DX: E11.9 Type 2 diabetes mellitus without complications (principal); E16.2 Hypoglycemia, unspecified; Z79.4 Long term (current) use of insulin; F17.200 Nicotine dependence, unspecified, uncomplicated
CPT/HCPCS: 36415; 80053; 83690; 85025; 93005; 96360; 99283

== ENCOUNTER 2022-12-16 19:00 | Outpatient (CLI) | payer MEDICARE | END 2022-12-16 19:01 | disposition left against medical advice (07) | LOC: EMS 19:00 | DX: E11.65 Type 2 diabetes mellitus with hyperglycemia (principal); Z79.84 Long term (current) use of oral hypoglycemic drugs ==

== ENCOUNTER 2023-01-13 13:29 | Outpatient (CLI) | payer MEDICARE, MEDICAID ==
[2023-01-13 18:22] LABS: CHOL/HDL RATIO 3.6 (<5.0); CHOLESTEROL 223 mg/dL; HDL CHOLESTEROL 62 mg/dL; LDL CHOLESTEROL,CALCULATED 134 mg/dL; LDL/HDL RATIO 2.2 (<3.6); TRIGLYCERIDES 137 mg/dL (48-352); VLDL CHOLESTEROL 27 mg/dL
[2023-01-13 20:22] LABS: ESTIMATED AVERAGE GLUCOSE 223 mg/dL (70-100); HEMOGLOBIN A1c% 9.4 % (4.27-6.07)
== END 2023-01-13 13:30 | disposition home or self-care (01) ==
LOC: LAB.N 13:29
PROVIDERS: ATTEND Nurse Practitioner
DX: E11.9 Type 2 diabetes mellitus without complications (principal); E78.5 Hyperlipidemia, unspecified
CPT/HCPCS: 36415; 80061; 83036; 83721

== ENCOUNTER 2023-04-20 15:42 | Outpatient (CLI) | payer MEDICARE, MEDICAID ==
[2023-04-20 21:42] LABS: ESTIMATED AVERAGE GLUCOSE 174 mg/dL (70-100); HEMOGLOBIN A1c% 7.7 % (4.27-6.07)
== END 2023-04-20 15:43 | disposition home or self-care (01) ==
LOC: LAB.N 15:42
PROVIDERS: ATTEND Nurse Practitioner
DX: E11.9 Type 2 diabetes mellitus without complications (principal)
CPT/HCPCS: 36415; 83036

== ENCOUNTER 2023-05-03 09:39 | Outpatient (CLI) | payer MEDICARE, MEDICAID | END 2023-05-03 23:59 | disposition critical access hospital (66) | LOC: EMS 09:39 | DX: E16.2 Hypoglycemia, unspecified (principal) | CPT/HCPCS: A0425; A0427 ==

== ENCOUNTER 2023-05-03 10:08 | Emergency (ER) | payer MEDICARE, MEDICAID ==
--- NOTE | 2023-05-03 10:29 | ED Physician Documentation ---
History of Present Illness - Stated complaint Stated Complaint: LOW BLOOD SUGAR - Additonal information Additional information: Patient 67-year-old male with past medical significant for insulin-dependent diabetesPresenting to the emergency department with low blood sugar. Reports woke with symptoms of low blood sugar including tremulousness and loss of bowel control. EMS reports blood sugar 76. He reports similar episodes in the past. Reports took his regular Levemir which she takes 10 units twice daily. Did not take his regular evening snack. Also reports takes metformin. Currently reports feeling well. Denies fever, chills, chest pain, shortness of breath, abdominal pain, nausea, vomiting, diarrhea, constipation. Review of Systems Constitutional: denies: Fever Eyes: denies: Loss of vision Ears: denies: Loss of hearing Nose: denies: Rhinorrhea / runny nose Throat: denies: Dental pain / toothache Cardiac: denies: Chest pain / pressure Respiratory: denies: Dyspnea GI: denies: Abdominal Pain : denies: Dysuria Skin: denies: Rash Musculoskeletal: denies: Neck pain PD PAST MEDICAL HISTORY - Past Medical History Cardiovascular: Hypertension Respiratory: None Neuro: None Endocrine/Autoimmune: Type 2 diabetes GI: None : None HEENT: None Psych: Depression Musculoskeletal: None Derm: None - Past Surgical History Past Surgical History: Yes HEENT: Tonsil/Adenoidectomy - Present Medications Home Medications: Ambulatory Orders Medication Instructions Recorded Confirmed Blood-Glucose Meter [Glucometer] 1 each [facility] #1 each 08/23/22 03/26/23 Lancet/Gluc Test Strip/[place] 1 each [facility] #120 packet 08/23/22 03/26/23 [Tempo Refill Kit] metFORMIN [Glucophage] 1,000 mg PO [facility] #120 tab 08/23/22 03/26/23 Amitriptyline HCl 75 mg PO HS 11/09/22 03/26/23 Mirtazapine 15 mg PO HS 11/09/22 03/26/23 Insulin Detemir [Levemir Flexpen] 4 - 10 unit SQ BID 03/26/23 03/26/23 Dextrose [Glucose] 33 gm PO PRN PRN #5 ea 05/03/23 - Allergies Allergies/Adverse Reactions: Allergies Allergy/AdvReac Type Severity Reaction Status Date / Time Tetracyclines Allergy Nausea Verified 03/11/24 10:28 - Social History Does the pt smoke?: Yes Smoking Status: Current every day smoker Does the pt drink ETOH?: Yes Does the pt have substance abuse?: Yes - Immunizations Immunizations are current?: Yes - POLST Patient has POLST: No PD ED PE NORMAL - Vitals Vital signs reviewed: Yes - General General: Alert and oriented X 3, No acute distress, Well developed/nourished - HEENT HEENT: Atraumatic, PERRL, EOMI, Ears normal, Moist mucous membranes, Pharynx benign - Neck Neck: Supple, no meningeal sign - Cardiac Cardiac: RRR - Respiratory Respiratory: No respiratory distress - Abdomen Abdomen: Normal bowel sounds - Male Male : Deferred - Rectal Rectal: Deferred - Back Back: No CVA TTP - Derm Derm: Normal color - Extremities Extremities: No deformity - Neuro Neuro: Alert and oriented X 3, pattern assembler 2-12 intact, No motor deficit, Normal speech Results - Vitals Vitals: Vital Signs - 24 hr 05/03/23 10:19 Temperature 36.0 C L Heart Rate 72 Respiratory 16 Rate Blood Pressure 172/98 H O2 Saturation 100 Oxygen O2 Source Room air - EKG (time done) 1113 EKG releavant findings:: EKG personally interpreted by author of this note. Relevant findings are: Paced rhythm with rate 81 bpm. Left axis deviation. Right bundle branch block present. No concordant ST segment elevations, concordant ST segment depressions or excessive discordance in any lead. No significant change from previous. - Labs Labs: Laboratory Tests 05/03/23 05/03/23 05/03/23 10:38 10:38 10:38 WBC 6.5 RBC 3.92 L Hgb 11.9 L Hct 37.1 L MCV 94.6 H MCH 30.4 MCHC 32.1 RDW 14.3 Plt Count 275 MPV 8.7 Neut # (Auto) 4.5 Lymph # (Auto) 1.3 L [place] # (Auto) 0.4 Eos # (Auto) 0.1 Baso # (Auto) 0.1 Absolute Nucleated RBC 0.00 Nucleated RBC % 0.0 Sodium 136 Potassium 3.7 Chloride 100 L Carbon Dioxide 30 Anion Gap 6.0 BUN 34 H Creatinine 0.8 Estimated GFR (MDRD) 96 Glucose 196 H Calcium 9.0 Total Bilirubin 0.3 AST 14 ALT 12 Alkaline Phosphatase 59 Troponin I High Sens 6.5 Total Protein 6.5 Albumin 4.0 Globulin 2.5 Albumin/Globulin Ratio 1.6 Lipase 26 Ethyl Alcohol < 10.0 PD Medical Decision Making - ED course Complexity details: reviewed results, d/w patient ED course: Patient 67-year-old male presenting the emergency department hypoglycemia. Insulin-dependent diabetic on Levemir 10 units daily. Afebrile, he medically stable on arrival to the emergency department. Initial differential diagnosis included but not limited to septic infection, cardiac event, insulin induced hypoglycemiaIn setting of brittle diabetes. . EKGs on above negative for indications of acute cardiac ischemia or dysrhythmia. Troponin negative. Electrolytes otherwise within normal limits. Attempted to obtain urine sample from patient however after several hours he was still unable to provide urine. His blood sugars did remain stable over that time and given that he does not have other SIRS criteria and I believe he is safe for discharge. I will have him cut his Levemir dose in half until he has an opportunity to discuss it with his primary care doctor. Clear return precautions given. Departure - Departure Disposition: Home, Self Care Clinical Impression: Hypoglycemia Instructions: ED Diabetes Hypoglycemia Oral Agent Prescriptions: Dextrose [Glucose] 33 gm PO PRN PRN #5 ea PRN Reason: As Needed Per Provider Orders Comments: Thank you for allowing us to care for you today at [facility]. Today in the emergency department you were evaluated for any possible dangerous or life-threatening medical emergency. The testing performed here in the emergency department including your blood work and EKG were reassuring. I would like you to take your regular 10 units of Levemir twice daily and cut it in half to 5 units twice daily until you have an opportunity to see your primary care doctor. Have also written a prescription for an oral glucose supplement that you can take at home if you feel your blood sugar becoming low. Please again follow-up with your primary care doctor. If anytime you develop any new or worsening symptoms or have further episodes of hypoglycemia please return to the emergency department.
[2023-05-03 10:43] LABS: BASOPHILS # (AUTO) 0.1 10^3/uL (0.0-0.1); BASOPHILS % (AUTO) 0.8 %; EOSINOPHILS # (AUTO) 0.1 10^3/uL (0.0-0.7); EOSINOPHILS % (AUTO) 2.2 %; HCT - HEMATOCRIT 37.1 % (42.0-52.0); HGB - HEMOGLOBIN 11.9 g/dL (14.0-18.0); LYMPHOCYTES # (AUTO) 1.3 10^3/uL (1.5-3.5); LYMPHOCYTES % (AUTO) 20.6 %; MEAN CORPUSCULAR HEMOGLOBIN 30.4 pg (27.0-31.0); MEAN CORPUSCULAR HGB CONC 32.1 g/dL (32.0-36.0); MEAN CORPUSCULAR VOLUME 94.6 fL (80.0-94.0); MEAN PLATELET VOLUME 8.7 fL (7.4-11.4); MONOCYTES # (AUTO) 0.4 10^3/uL (0.0-1.0); MONOCYTES % (AUTO) 6.5 %; NEUTROPHILS # (AUTO) 4.5 10^3/uL (1.5-6.6); NEUTROPHILS % (AUTO) 69.6 %; PLT - PLATELET COUNT 275 10^3/uL (130-450); RED BLOOD COUNT 3.92 10^6/uL (4.70-6.10); RED CELL DISTRIBUTION WIDTH 14.3 % (12.0-15.0); WHITE BLOOD COUNT 6.5 x10^3/uL (4.8-10.8)
[2023-05-03 10:56] LABS: ALBUMIN/GLOBULIN RATIO 1.6 (1.0-2.2); ALKALINE PHOSPHATASE 59 IU/L (42-121); ALT ALANINE AMINOTRANSFERASE 12 IU/L (10-60); AST ASPARTATE AMINOTRANSFERASE 14 IU/L (10-42); BILIRUBIN,TOTAL 0.3 mg/dL (0.2-1.0); BUN - BLOOD UREA NITROGEN 34 mg/dL (6-20); CARBON DIOXIDE - CO2 30 mmol/L (21-32); CHLORIDE 100 mmol/L (101-111); CREATININE 0.8 mg/dL (0.6-1.3); ETOH - ETHANOL < 10.0 mg/dL; GFR - MDRD 96 (>89); GLUCOSE 196 mg/dL (74-104); LIPASE 26 U/L (11-82); POTASSIUM 3.7 mmol/L (3.5-4.5); SODIUM 136 mmol/L (135-145); TOTAL PROTEIN 6.5 g/dL (6.4-8.9)
[2023-05-03 13:02] LABS: BILIRUBIN,URINE NEGATIVE (NEGATIVE); GLUCOSE, URINE (UA) 100 mg/dL (NEGATIVE); KETONES,URINE (UA) NEGATIVE (NEGATIVE); LEUKOCYTE ESTERASE, URINE NEGATIVE (NEGATIVE); NITRITE,URINE NEGATIVE (NEGATIVE); OCCULT BLOOD,URINE NEGATIVE (NEGATIVE); PH,URINE 6.5 PH (5.0-7.5); PROTEIN,URINE NEGATIVE (NEGATIVE); UROBILINOGEN,URINE 0.2 (NORMAL) E.U./dL (NORMAL)
[2023-05-03 13:03] VITALS: BP 140/60; O2SAT 99
[2023-05-03 13:07] LABS: CLARITY,URINE CLEAR (CLEAR)
== END 2023-05-03 13:14 | disposition home or self-care (01) ==
LOC: EDUNIT# → ED 10:08
DX: E11.649 Type 2 diabetes mellitus with hypoglycemia without coma (principal); Z79.4 Long term (current) use of insulin; I10 Essential (primary) hypertension; Z79.84 Long term (current) use of oral hypoglycemic drugs; Z79.899 Other long term (current) drug therapy; F17.200 Nicotine dependence, unspecified, uncomplicated
CPT/HCPCS: 36415; 80053; 81003; 83690; 84484; 85025; 93005; 99283; 99284; G0480; 81001; 82077; 87086

== ENCOUNTER 2023-10-11 12:44 | Outpatient (CLI) | payer MEDICARE, MEDICAID | END 2023-10-11 12:45 | disposition home or self-care (01) | LOC: NS 12:44 | PROVIDERS: ATTEND Nurse Practitioner | DX: Z71.3 Dietary counseling and surveillance (principal); E11.65 Type 2 diabetes mellitus with hyperglycemia; R64 Cachexia | CPT/HCPCS: 97802 ==

== ENCOUNTER 2023-11-05 12:50 | Outpatient (CLI) | payer MEDICARE, MEDICAID ==
[2023-11-05 18:54] LABS: BUN - BLOOD UREA NITROGEN 23 mg/dL (6-20); CALCIUM 9.6 mg/dL (8.5-10.3); CARBON DIOXIDE - CO2 30 mmol/L (21-32); CHLORIDE 104 mmol/L (101-111); CHOL/HDL RATIO 3.2 (<5.0); CHOLESTEROL 196 mg/dL; GFR - MDRD 74 (>89); GLUCOSE 207 mg/dL (74-104); HDL CHOLESTEROL 61 mg/dL; LDL CHOLESTEROL,CALCULATED 110 mg/dL; LDL/HDL RATIO 1.8 (<3.6); POTASSIUM 4.4 mmol/L (3.5-4.5); SODIUM 140 mmol/L (135-145); TRIGLYCERIDES 126 mg/dL; VLDL CHOLESTEROL 25 mg/dL
[2023-11-05 20:20] LABS: ESTIMATED AVERAGE GLUCOSE 163 mg/dL (70-100); HEMOGLOBIN A1c% 7.3 % (4.27-6.07)
== END 2023-11-05 12:51 | disposition home or self-care (01) ==
LOC: LAB.N 12:50
PROVIDERS: ATTEND Nurse Practitioner
DX: E11.65 Type 2 diabetes mellitus with hyperglycemia (principal); E78.5 Hyperlipidemia, unspecified
CPT/HCPCS: 36415; 80048; 80061; 83036; 83721

== ENCOUNTER 2024-05-31 11:31 | Inpatient (IN) ==
--- OUTSIDE RECORDS SUMMARY | 2024-05-31 12:15 | EXTERNAL MEDICAL SUMMARY RPT | Continuity of Care Document ---
Author Organization [facility] Address [address] [place] [id number] Phone Problems date description facility 2024-03-03 13:34 Muscle weakness (generalized) [facility] 2024-03-03 14:09 Muscle weakness (generalized) [facility] 2024-03-03 14:59 Muscle weakness (generalized) [facility] 2024-03-10 13:52 Muscle weakness (generalized) [facility] 2024-03-14 14:21 Muscle weakness (generalized) [facility] 2024-03-21 13:55 Muscle weakness (generalized) [facility] 2024-03-22 06:55 Type 2 diabetes mellitus with h yperglycemia [facility] 2024-03-22 06:55 Hyperlipidemia, unspecified [facility] 2024-03-22 06:55 Essential (primary) hypertensio n [facility] 2024-03-22 07:13 Type 2 diabetes [facility] 2024-03-22 07:13 Hyperlipidemia, unspecified [facility] 2024-03-22 07:13 Essential (primary) hypertensio n [facility] 2024-03-27 14:32 Muscle weakness (generalized) [facility] 2024-03-28 14:55 Type 2 diabetes mellitus withou t complications [facility] 2024-03-28 14:55 Hyperlipidemia, unspecified [facility] 2024-03-28 14:55 Depression, unspecified [facility] 2024-03-28 14:55 Anxiety disorder, unspecified [facility] 2024-03-28 14:55 Essential (primary) hypertensio n [facility] 2024-03-28 14:55 Gastro-esophageal reflux diseas e without esophagitis [facility] 2024-03-30 14:05 Muscle weakness (generalized) [facility] 2024-03-30 15:01 Muscle weakness (generalized) [facility] 2024-04-06 13:59 Muscle weakness (generalized) [facility] 2024-04-10 09:35 Type 2 diabetes mellitus with h yperglycemia [facility] 2024-04-10 09:35 Hyperlipidemia, unspecified [facility] 2024-04-10 09:35 Essential (primary) hypertensio n [facility] 2024-04-10 10:10 Type 2 diabetes mellitus with h yperglycemia [facility] 2024-04-10 10:10 Hyperlipidemia, unspecified [facility] 2024-04-10 10:10 Essential (primary) hypertensio n [facility] 2024-04-12 13:01 Muscle weakness (generalized) [facility] 2024-04-20 13:17 Muscle weakness (generalized) [facility] 2024-04-25 13:00 Muscle weakness (generalized) [facility] 2024-04-28 14:21 Muscle weakness (generalized) [facility] 2024-04-28 15:06 Muscle weakness (generalized) [facility] 2024-04-28 15:07 Muscle weakness (generalized) [facility] 2024-05-01 07:41 Type 2 diabetes mellitus withou t complications [facility] 2024-05-01 07:41 Hyperlipidemia, unspecified [facility] 2024-05-01 07:41 Essential (primary) hypertensio [facility] 2024-05-01 11:23 Type 2 diabetes mellitus withou t complications [facility] 2024-05-01 11:23 Hyperlipidemia, unspecified [facility] 2024-05-01 11:23 Essential (primary) hypertensio n [facility] 2024-05-01 13:01 Other specified disorders of th e male genital organs [facility] 2024-05-01 13:01 Other intra-abdomina l and pelvic swelling, mass and lump [facility] 2024-05-01 13:03 Other specified disorders of th e male genital organs [facility] 2024-05-01 13:03 Other intra-abdomina l and pelvic swelling, mass and lump [facility]24-[facility]-01 13:04 Other specified disorders of th e male genital organs [facility] 2024-05-01 13:04 Other intra-abdomina l and pelvic swelling, mass and lump [facility] 2024-05-02 16:41 Other specified disorders of th e male genital organs [facility] 2024-05-02 16:41 Other intra-abdomina l and pelvic swelling, mass and lump [facility] 2024-05-02 16:45 Other specified disorders of th e male genital organs [facility] 2024-05-02 16:45 Other intra-abdomina l and pelvic swelling, mass and lump [facility] 2024-05-05 14:08 Muscle weakness (generalized) [facility] 2024-05-05 14:37 Muscle weakness (generalized) [facility] 2024-05-05 14:38 Other specified disorders of th e male genital organs [facility] 2024-05-05 14:38 Other intra-abdomina l and pelvic swelling, mass and lump [facility] 2024-05-06 00:02 Localized edema [facility] 2024-05-11 14:27 Other specified disorders of th e male genital organs [facility] 2024-05-11 14:27 Other intra-abdomina l and pelvic swelling, mass and lump [facility] 2024-05-12 00:02 Other specified disorders of th e male genital organs [facility] 2024-05-12 00:02 Other intra-abdomina l and pelvic swelling, mass and lump [facility] 2024-05-12 08:24 Other specified disorders of th e male genital organs [facility] 2024-05-12 08:24 Other intra-abdomina l and pelvic swelling, mass and lump [facility] 2024-05-15 13:32 Other specified disorders of th e male genital organs [facility] 13:59 Other specified disorders of th e male genital organs [facility]24-05-15 14:06 Other specified disorders of th e male genital organs [facility] 2024-05-15 14:12 Other specified disorders of th e male genital organs [facility] 2024-[facility]-16 13:35 Other specified disorders of th e male genital organs [facility] 2024-05-17 00:02 Other specified disorders of th e male genital organs [facility] 2024-05-18 00:02 Type 2 diabetes mellitus withou t complications [facility] 2024-05-18 00:02 Depression, unspecified [facility] 2024-05-18 00:02 Anxiety disorder, unspecified [facility] 2024-05-18 00:02 Unilateral inguinal hernia, without obstruction or gangrene, not specified as recurrent [facility] 2024-05-18 00:02 Unspecified cirrhosis of liver [facility] 2024-05-18 00:02 Non-pressure chronic ulcer of unspecified part of unspecified lower leg with unspecified severity [facility] 2024-05-18 00:02 Other specified disorders of e male genital organs [facility] 00:02 Left upper quadrant pain [facility] 2024-05-18 00:02 Localized edema [facility] 2024-05-18 06:53 Unspecified cirrhosis of liver [facility] 2024-05-19 09:04 Unspecified cirrhosis of liver [facility] 2024-05-19 09:10 Unspecified cirrhosis of liver [facility] 2024-05-19 13:58 Unspecified cirrhosis of liver [facility] 2024-05-19 13:58 Left upper quadrant pain [facility] 2024-05-20 00:03 Unspecified cirrhosis of liver [facility] 2024-05-20 00:03 Left upper quadrant pain [facility] 2024-05-22 08:20 Unspecified cirrhosis of liver [facility] 2024-05-24 09:53 Muscle weakness (generalized) [facility] 2024-05-24 13:54 Weakness [facility] 2024-05-24 14:52 Unspecified cirrhosis of liver [facility] 2024-05-26 09:27 Unspecified cirrhosis of liver [facility] 2024-05-26 11:06 Muscle weakness (generalized) [facility] 2024-05-26 12:28 Other specified disorders of th e male genital organs [facility] 2024-05-26 16:14 Unspecified cirrhosis of liver [facility] 2024-05-27 00:01 Unspecified cirrhosis of liver [facility] Results/Labs test date facility value unit notes Result panel 1 BILIRUBIN,TOTAL 2024-05-16 13:45 [facility] 0.6 mg /dl As of August 2022 testing method has changed, this may include reference ranges. ALBUMIN/GLOBULIN RATIO 2024-05-16 13:45 [facility] 1.4 (missing) (missing) CREATININE 2024-05-16 13:45 [facility] 1.4 mg/dl As of August 2022 testing method has changed, this may include reference ranges. CREATININE 2024-05-16 13:45 [facility] 1.5 mg/dl As of August 2022 testing method has changed, this may include reference ranges. ANION GAP 2024-05-16 13:45 [facility] 10.0 (missing ) (missing) CHLORIDE 2024-05-16 13:45 [facility] 106 mmol/l As of August 2022 testing method has changed, this may include reference ranges. GLUCOSE 2024-05-16 13:45 [facility] 122 mg/dl As of August 2022 testing method has changed, this may include reference ranges. SODIUM 2024-05-16 13:45 [facility] 140 mmol/l Unknown As of August 2022 testing method has changed, this may include reference ranges. GLOBULIN 2024-05-16 13:45 [facility] 2.7 g/dl (missing) ALKALINE PHOSPHATASE 2024-05-16 13:45 [facility] 235 iu/l As of August 2022 testing method has changed, this may include reference ranges. CARBON DIOXIDE - CO2 2024-05-16 13:45 [facility] 24 mmol/l As of August 2022 testing method has changed, this may include reference ranges. ALBUMIN 2024-05-16 13:45 [facility] 3.8 g/dl As of August 2022 testing method has changed, this may include reference ranges. AST ASPARTATE AMINOTRANSFERASE 2024-05-16 13:45 [facility] 30 iu/l As of August 2022 testing method has changed, this may include reference ranges. BUN - BLOOD UREA NITROGEN 2024-05-16 13:45 [facility] 32 mg/dl As of Aug testing method has changed, this may include reference ranges. POTASSIUM 2024-05-16 13:45 [facility] 4.7 mmol/l As of August 2022 testing method has changed, this may include reference ranges. ALT ALANINE AMINOTRANSFERASE 2024-05-16 13:45 [facility] 45 iu/l As of August 2022 testing method has changed, this may include reference ranges. GFR - MDRD 2024-05-16 13:45 [facility] 46 (yenny rogers) Social History date description facility
[2024-05-31 12:32] LABS: BASOPHILS # (AUTO) 0.1 10^3/uL (0.0-0.1); BASOPHILS % (AUTO) 0.8 %; EOSINOPHILS # (AUTO) 0.1 10^3/uL (0.0-0.7); EOSINOPHILS % (AUTO) 0.7 %; HCT - HEMATOCRIT 38.2 % (42.0-52.0); HGB - HEMOGLOBIN 12.1 g/dL (14.0-18.0); LYMPHOCYTES # (AUTO) 0.8 10^3/uL (1.5-3.5); LYMPHOCYTES % (AUTO) 10.4 %; MEAN CORPUSCULAR HEMOGLOBIN 28.4 pg (27.0-31.0); MEAN CORPUSCULAR HGB CONC 31.7 g/dL (32.0-36.0); MEAN CORPUSCULAR VOLUME 89.7 fL (80.0-94.0); MEAN PLATELET VOLUME 10.2 fL (7.4-11.4); MONOCYTES # (AUTO) 0.4 10^3/uL (0.0-1.0); MONOCYTES % (AUTO) 5.8 %; NEUTROPHILS # (AUTO) 6.3 10^3/uL (1.5-6.6); NEUTROPHILS % (AUTO) 81.9 %; PLT - PLATELET COUNT 247 10^3/uL (130-450); RED BLOOD COUNT 4.26 10^6/uL (4.70-6.10); RED CELL DISTRIBUTION WIDTH 17.3 % (12.0-15.0); WHITE BLOOD COUNT 7.6 x10^3/uL (4.8-10.8)
[2024-05-31 12:47] LABS: ALBUMIN 3.6 g/dL (3.2-5.5); ALBUMIN/GLOBULIN RATIO 1.2 (1.0-2.2); ALKALINE PHOSPHATASE 223 IU/L (42-121); ALT ALANINE AMINOTRANSFERASE 31 IU/L (10-60); AST ASPARTATE AMINOTRANSFERASE 26 IU/L (10-42); BILIRUBIN,TOTAL 0.8 mg/dL (0.2-1.0); BUN - BLOOD UREA NITROGEN 38 mg/dL (6-20); CALCIUM 8.6 mg/dL (8.5-10.3); CARBON DIOXIDE - CO2 28 mmol/L (21-32); CHLORIDE 102 mmol/L (101-111); CREATININE 1.6 mg/dL (0.6-1.3); GFR - MDRD 43 (>89); GLUCOSE 128 mg/dL (74-104); LIPASE < 10 U/L (11-82); MAGNESIUM 1.7 mg/dL (1.7-2.3); POTASSIUM 4.7 mmol/L (3.5-4.5); SODIUM 140 mmol/L (135-145); TOTAL PROTEIN 6.5 g/dL (6.4-8.9)
--- NOTE | 2024-05-31 12:50 | ED Physician Documentation ---
History of Present Illness Stated complaint Stated Complaint: BLE SWELLING Chief complaint Chief Complaint: General Additonal information Additional information: 68-year-old male with overall poor historian presents emerged part via EMS after sustaining a ground-level fall onto his left knee and unable to get up due to weakness. Patient says that was not necessarily a fall more so "a slow descent". According to his chart he has history of type 2 diabetes, peripheral vascular disease, noncompliance, unspecified cirrhosis,. He was seen recently by his primary care provider unsure if he is taking his diuretics appropriately. He said over the last couple weeks had increased significant swelling to his bilateral lower lower extremities up to his scrotal lower abdominal region. His primary care provider is Jena Hoffman [facility] Medications Ambulatory Orders Medication Instructions Recorded Confirmed amitriptyline 75 mg tablet 75 mg PO HS 11/09/22 05/31/24 mirtazapine 15 mg tablet 15 mg PO HS 11/09/22 05/31/24 atorvastatin 40 mg tablet 40 mg PO QDAY 01/10/24 05/31/24 blood sugar diagnostic (True 01/10/24 05/24/24 Metrix Glucose Test Strip) blood-glucose sensor (FreeStyle 01/10/24 05/24/24 Nitin 3 Plus Sensor device) lancets 33 gauge (TRUEplus Lancets) 01/10/24 05/24/24 metformin 1,000 mg tablet 1,000 mg PO BID 01/10/24 05/31/24 pen needle, diabetic 31 gauge x 01/10/24 05/24/24 5/16" (Pen Needle) insulin glargine 100 unit/mL (3 6 unit subcut QAM 03/28/24 05/31/24 mL) subcutaneous pen (Lantus Solostar U-100 Insulin) omeprazole 20 mg capsule,delayed 20 mg PO QDAY #30 caps 03/28/24 05/31/24 release insulin lispro 200 unit/mL (3 mL) 1 sliding scale dose subcut 04/02/24 05/24/24 subcutaneous pen USEASDIRECTD #6 mL insulin lispro 100 unit/mL 1 sliding scale dose subcut 05/01/24 05/24/24 subcutaneous pen (Humalog KwikPen (U-100) Insulin) spironolactone 100 mg tablet 100 mg PO QAM #30 tabs 05/17/24 05/31/24 furosemide 20 mg tablet 20 mg PO Q OTHER DAY PRN edema #90 05/18/24 05/31/24 tabs Allergies Allergies Allergy/AdvReac Type Severity Reaction Status Date / Time desipramine AdvReac Severe vivid dream Verified 05/31/24 11:48 drospirenone AdvReac Severe Unknown Verified 05/31/24 11:48 lithium AdvReac Severe shakes Verified 05/31/24 11:48 sertraline (From Zoloft) AdvReac Severe suicidal Verified 05/31/24 11:48 Tetracyclines AdvReac Severe Nausea Verified 05/31/24 11:48 trazodone AdvReac Severe "zombie" Verified 05/31/24 11:48 selective serotonin reuptake Allergy Severe Hallucinati Uncoded 05/31/24 11:48 inhibitors (SSRIs) [facility] Active Problems All Active Problems (Updated 05/31/24 @ 13:33 by Laura He DNP) Anasarca (Acute) Acute exacerbation of CHF (congestive heart failure) (Acute) Therapeutic drug monitoring (Acute) Inguinal hernia, left (Acute) Lower extremity ulceration (Acute) Cirrhosis (Acute) Peripheral edema (Acute) Scrotal edema (Acute) GERD (gastroesophageal reflux disease) (Acute) Anxiety and depression (Acute) Hyperlipidemia (Acute) Essential hypertension, benign (Acute) Type 2 diabetes mellitus with foot ulcer (Acute) Peripheral vascular disease, unspecified (Acute) DM type 2 (diabetes mellitus, type 2) (Acute) Poor personal hygiene (Acute) Noncompliance with diabetes treatment (Acute) Medical History Medical History (Updated 05/31/24 @ 13:33 by Laura He DNP) History of diabetic ketoacidosis Social History Social History Smoking Status: Current every day smoker Number of Years Smoked: 40 How many cigarettes a day do you smoke? (20 cigarettes=1 Pk): 10 Do you dip or chew tobacco?: No Do you vape?: No Patient requests smoking cessation consult: Yes Initiate information on smoking cessation: Yes Living arrangement: At home Marital Status: Single Living Condition: Alone Relationship: Level: Independent Do you feel safe in your home environment?: No (less strength in legs.) Suffered physical, verbal, emotional, or financial abuse?: No History of Abuse: No ETOH Use: None Frequency: Occasional Substance Use: cannabis (any form) POLST Patient has POLST: No Exam Exam Vital Signs: Vital Signs x48h Temp Pulse Resp BP Pulse Ox 05/31/24 14:55 90 16 113/81 96 05/31/24 13:33 89 16 116/87 98 05/31/24 12:39 89 17 108/81 97 05/31/24 11:45 37.0 C 92 20 116/77 100 Constitutional abnormal general appearance (disheveled), (chronically ill), (appears older than stated age) and (frail appearing), no apparent distress, abnormal body habitus (thin) and alert HENMT normocephalic Eyes PERRL Chest inspection of chest normal Respiratory breath sounds equal bilaterally Diminished breath sounds Cardiovascular normal heart rate noted and edema noted (3+ pitting edema from BLE up to lower abdomen involving scrotum) Distant heart sounds Skin skin color normal Results Vitals Vitals: Vital Signs - 24 hr 05/31/24 11:45 05/31/24 12:39 05/31/24 13:33 Temperature 37.0 C Temperature Source Temporal Artery Scan Pulse Rate 92 89 89 Respiratory Rate 20 17 16 Blood Pressure 116/77 108/81 116/87 O2 Saturation 100 97 98 O2 Source Room air Room air Room air Pain Intensity 2 6 0 05/31/24 14:55 Temperature Temperature Source Pulse Rate 90 Respiratory Rate 16 Blood Pressure 113/81 O2 Saturation 96 O2 Source Room air Pain Intensity 5 Oxygen O2 Source Room air Labs Labs: Laboratory Tests 05/31/24 12:24 WBC 7.6 RBC 4.26 L Hgb 12.1 L Hct 38.2 L MCV 89.7 MCH 28.4 MCHC 31.7 L RDW 17.3 H Plt Count 247 MPV 10.2 Neut # (Auto) 6.3 Lymph # (Auto) 0.8 L [place] # (Auto) 0.4 Eos # (Auto) 0.1 Baso # (Auto) 0.1 Absolute Nucleated RBC 0.00 Nucleated RBC % 0.0 Sodium 140 Potassium 4.7 H Chloride 102 Carbon Dioxide 28 Anion Gap 10.0 BUN 38 H Creatinine 1.6 H Estimated GFR (MDRD) 43 L Glucose 128 H Calcium 8.6 Magnesium 1.7 Total Bilirubin 0.8 AST 26 ALT 31 Alkaline Phosphatase 223 H B-Natriuretic Peptide 1286 H Total Protein 6.5 Albumin 3.6 Globulin 2.9 Albumin/Globulin Ratio 1.2 Lipase < 10 L PD Medical Decision Making ED course ED course: 68-year-old male who I believe is fairly noncompliant with medication recommendations presents emergency department via EMS for increased generalized weakness and swelling up to his lower abdomen. He has no chest pain or shortness of breath just says that he had a very slow fall onto his left knee. X-rays of the left knee were complete and do not reveal any acute abnormalities or findings of the left knee. Labs are complete for further evaluation slightly elevated potassium at 4.7 which is similar to his last lab draw on 19 May it was 4.8. BUN elevated at 38, creatinine elevated at 1.6, GFR suppressed at 43 this does appear to be worsening kidney function in comparison to his last lab draw on 05/19. His BNP was also complete given the significant swelling he is has in his bilateral lower extremities and it was found a significantly elevated at 1286. Not sure how consistent patient is with CHF diet or CHF medications very difficult to understand the patient when he speaks he does have significant scrotal and penile swelling 3+ edema to bilateral lower extremities all the way up to thighs and lower abdomen. He has good diminished breath sounds bilaterally I do not believe that he should go home given his significant weakness and anasarca I think would benefit from inpatient diuretics. Patient is agreeable to stay and gave report to Lalo Almonte, nurse practitioner hospitalist who is graciously agreed to admit the patient for further diuresing. Discharge Plan Discharge Patient Disposition: 65 [facility] DC/Xfer Condition: Good Clinical Impression: Acute exacerbation of CHF (congestive heart failure), Anasarca Prescriptions: No Action insulin lispro 200 unit/mL (3 mL) insulin pen 1 sliding scale dose subcut USEASDIRECTD MDD 20 Qty: 6 2RF Rx Instructions: Sliding scale as directed. Rapid acting insulin WITH FOOD or high blood sugar. furosemide 20 mg tablet 20 mg PO Q OTHER DAY MDD 20 mg PRN (Reason: edema) Qty: 90 1RF amitriptyline 75 MG tablet 75 mg PO HS Patient Comments: Take 1 tablet by mouth at bedtime mirtazapine 15 MG tablet 15 mg PO HS Patient Comments: TAKE 1 TABLET BY MOUTH AT BEDTIME atorvastatin 40 mg tablet 40 mg PO QDAY Patient Comments: TAKE 1 TABLET BY MOUTH ONCE DAILY metformin 1,000 mg tablet 1,000 mg PO BID Patient Comments: TAKE 1 TABLET BY MOUTH TWICE DAILY insulin glargine [Lantus Solostar U-100 Insulin] 100 unit/mL (3 mL) insulin pen 6 unit subcut QAM Patient Comments: INJECT 6 UNITS SUBCUTANEOUSLY (DME) FreeStyle Nitin 3 Plus Sensor Device See Rx Instructions .Route Rx Instructions: As directed (DME) pen needle, diabetic [Pen Needle] 31 gauge x 5/16" needle See Rx Instructions .Route Rx Instructions: As directed (DME) True Metrix Glucose Test Strip Strip See Rx Instructions .Route Rx Instructions: As directed (DME) lancets [TRUEplus Lancets] 33 gauge misc See Rx Instructions .Route Rx Instructions: As directed insulin lispro [Humalog KwikPen Insulin] 100 unit/mL insulin pen 1 sliding scale dose subcut Patient Comments: INJECT 1 UNITS SUBCUTANEOUSLY THREE TIMES DAILY WITH MEALS omeprazole 20 mg capsule,delayed release(DR/EC) 20 mg PO QDAY Qty: 30 11RF spironolactone 100 mg tablet 100 mg PO QAM Qty: 30 5RF Interventions: ED Admission Assessment Last Done: 05/31/24 14:43 Print Language: Latvian
[2024-05-31] MEDS: FUROSEMIDE 40 MG/4 ML VIAL IVP STA (13:10)
--- NOTE | 2024-05-31 13:24 | XRAY Report ---
PROCEDURE: XR Knee 3V LT INDICATIONS: Left knee pain after GLF TECHNIQUE: 3 views of the knee(s) were acquired. COMPARISON: None. FINDINGS: Bones: No fractures or dislocations. No suspicious bony lesions. Soft tissues: No knee joint effusion. No suspicious soft tissue calcifications or masses. IMPRESSION: No acute bony abnormality. Reviewed by: Ernesto Daniels MD on 05/31/2024 1:23 PM PDT Approved by: Ernesto Daniels MD on 05/31/2024 1:23 PM PDT Station ID: [id number]
--- OUTSIDE RECORDS SUMMARY | 2024-05-31 16:15 | EXTERNAL MEDICAL SUMMARY RPT | Continuity of Care Document ---
Author Organization [facility] Address [address] [place] [id number] Phone Problems date description facility 2024-03-03 13:34 Muscle weakness (generalized) [employer] [employer] 2024-03-03 14:09 Muscle weakness (generalized) [facility] 2024-03-03 14:59 Muscle weakness (generalized) [employer] 2024-03-10 13:52 Muscle weakness (generalized) [employer] [employer] 2024-03-14 14:21 Muscle weakness (generalized) [employer] 2024-03-21 13:55 Muscle weakness (generalized) [employer] 2024-03-22 06:55 Type 2 diabetes mellitus with h yperglycemia [facility] 2024-03-22 06:55 Hyperlipidemia, unspecified [facility] [employer] 2024-03-22 06:55 Essential (primary) hypertensio n [facility] 2024-03-22 07:13 Type 2 diabetes mellitus with h [facility]perglycemia [facility] 2024-03-22 07:13 Hyperlipidemia, unspecified [facility] 2024-03-22 07:13 Essential (primary) hypertensio n [facility] 2024-03-27 14:32 Muscle weakness (generalized) [employer] 2024-03-28 14:55 Type 2 diabetes mellitus withou t complications [employer] [facility] [employer] 2024-03-28 14:55 Hyperlipidemia, unspecified [facility] [employer] 2024-03-28 14:55 Depression, unspecified [employer] [facility] [employer] 2024-03-28 14:55 Anxiety disorder, unspecified [employer] 2024-03-28 14:55 Essential (primary) hypertensio n [employer] 2024-03-28 14:55 Gastro-esophageal reflux diseas e without esophagitis [employer] 2024-03-30 14:05 Muscle weakness (generalized) [facility] 2024-03-30 15:01 Muscle weakness (generalized) [facility] 2024-04-06 13:59 Muscle weakness (generalized) [facility] 2024-04-10 09:35 Type 2 diabetes mellitus with h yperglycemia [facility] 2024-04-10 09:35 Hyperlipidemia, unspecified [facility] 2024-04-10 09:35 Essential (primary) hypertensio n [facility] 2024-04-10 10:10 Type 2 diabetes mellitus with h yperglycemia [facility] 2024-04-10 10:10 Hyperlipidemia, unspecified [facility] 2024-04-10 10:10 Essential (primary) hypertensio n [facility] 2024-04-12 13:01 Muscle weakness (generalized) [facility] 2024-04-20 13:17 Muscle weakness (generalized) [facility] 2024-04-25 13:00 Muscle weakness (generalized) [facility] 2024-04-28 14:21 Muscle weakness (generalized) [facility] 2024-04-28 15:06 Muscle weakness (generalized) [facility] 2024-04-28 15:07 Muscle weakness (generalized) [facility] 2024-05-01 07:41 Type 2 diabetes mellitus withou t complications [facility] 2024-05-01 07:41 Hyperlipidemia, unspecified [facility] 2024-05-01 07:41 Essential (primary) hypertensio [facility] 2024-05-01 11:23 Type 2 diabetes mellitus withou t complications [facility] 2024-05-01 11:23 Hyperlipidemia, unspecified [facility] 2024-05-01 11:23 Essential (primary) hypertensio n [facility] 2024-05-01 13:01 Other specified disorders of th e male genital organs [facility] 2024-05-01 13:01 Other intra-abdomina l and pelvic swelling, mass and lump [facility] 2024-05-01 13:03 Other specified disorders of th e male genital organs [facility] 2024-05-01 13:03 Other intra-abdomina l and pelvic swelling, mass and lump [facility]24-[facility]-01 13:04 Other specified disorders of th e male genital organs [facility] 2024-05-01 13:04 Other intra-abdomina l and pelvic swelling, mass and lump [facility] 2024-05-02 16:41 Other specified disorders of th e male genital organs [facility] 2024-05-02 16:41 Other intra-abdomina l and pelvic swelling, mass and lump [facility] 2024-05-02 16:45 Other specified disorders of th e male genital organs [facility] 2024-05-02 16:45 Other intra-abdomina l and pelvic swelling, mass and lump [facility] 2024-05-05 14:08 Muscle weakness (generalized) [facility] 2024-05-05 14:37 Muscle weakness (generalized) [facility] 2024-05-05 14:38 Other specified disorders of th e male genital organs [facility] 2024-05-05 14:38 Other intra-abdomina l and pelvic swelling, mass and lump [facility] 2024-05-06 00:02 Localized edema [facility] 2024-05-11 14:27 Other specified disorders of th e male genital organs [facility] 2024-05-11 14:27 Other intra-abdomina l and pelvic swelling, mass and lump [facility] 2024-05-12 00:02 Other specified disorders of th e male genital organs [facility] 2024-05-12 00:02 Other intra-abdomina l and pelvic swelling, mass and lump [facility] 2024-05-12 08:24 Other specified disorders of th e male genital organs [facility] 2024-05-12 08:24 Other intra-abdomina l and pelvic swelling, mass and lump [facility] 2024-05-15 13:32 Other specified disorders of th e male genital organs [email or web address]24-[facility]-15 13:59 Other specified disorders of th e male genital organs [email or web address] 2024-05-15 14:06 Other specified disorders of th e male genital organs [email or web address] 2024-05-15 14:12 Other specified disorders of th e male genital organs [facility] 2024-05-16 13:35 Other specified disorders of th e male genital organs [facility] 2024-05-17 00:02 Other specified disorders of th e male genital organs [facility] 2024-05-18 00:02 Type 2 diabetes mellitus withou t complications [facility] 2024-05-18 00:02 Depression, unspecified [employer] 2024-05-18 00:02 Anxiety disorder, unspecified [employer] 2024-05-18 00:02 Unilateral inguinal hernia, without obstruction or gangrene, not specified as recurrent [employer] 2024-05-18 00:02 Unspecified cirrhosis of liver [facility] 2024-05-18 00:02 Non-pressure chronic ulcer of unspecified part of unspecified lower leg with unspecified severity [employer] 2024-05-18 00:02 Other specified disorders of e male genital organs [facility] 2024-05-18 00:02 Left upper quadrant pain [facility] 2024-05-18 00:02 Localized edema [employer] 2024-05-18 06:53 Unspecified cirrhosis of liver [employer] 2024-05-19 09:04 Unspecified cirrhosis of liver [employer] 2024-05-19 09:10 Unspecified cirrhosis of liver [facility] 2024-05-19 13:58 Unspecified cirrhosis of liver [facility] 2024-05-19 13:58 Left upper quadrant pain [facility] 2024-05-20 00:03 Unspecified cirrhosis of liver [facility] 2024-05-20 00:03 Left upper quadrant pain [facility] 2024-05-22 08:20 Unspecified cirrhosis of liver [employer] 2024-05-24 09:53 Muscle weakness (generalized) [employer] 2024-05-24 13:54 Weakness [employer] 2024-05-24 14:52 Unspecified cirrhosis of liver [employer] 2024-05-26 09:27 Unspecified cirrhosis of liver [employer] 2024-05-26 11:06 Muscle weakness (generalized) [facility] 2024-05-26 12:28 Other specified disorders of th e male genital organs [facility] 2024-05-26 16:14 Unspecified cirrhosis of liver [facility] 2024-05-27 00:01 Unspecified cirrhosis of liver [facility] Results/Labs test date facility value unit notes Result panel 1 BILIRUBIN,TOTAL 2024-05-16 13:45 [facility] 0.6 mg /dl As of August 2022 testing method has changed, this may include reference ranges. ALBUMIN/GLOBULIN RATIO 2024-05-16 13:45 [facility] 1.4 (missing) (missing) CREATININE 2024-05-16 13:45 [facility] 1.4 mg/dl As of August 2022 testing method has changed, this may include reference ranges. CREATININE 2024-05-16 13:45 [facility] 1.5 mg/dl As of August 2022 testing method has changed, this may include reference ranges. ANION GAP 2024-05-16 13:45 [facility] 10.0 (missing ) (missing) CHLORIDE 2024-05-16 13:45 [facility] 106 mmol/l As of August 2022 testing method has changed, this may include reference ranges. GLUCOSE 2024-05-16 13:45 [facility] 122 mg/dl As of August 2022 testing method has changed, this may include reference ranges. SODIUM 2024-05-16 13:45 [facility] 140 mmol/l Unknown As of August 2022 testing method has changed, this may include reference ranges. GLOBULIN 2024-05-16 13:45 [facility] 2.7 g/dl (missing) ALKALINE PHOSPHATASE 2024-05-16 13:45 [facility] 235 iu/l As of August 2022 testing method has changed, this may include reference ranges. CARBON DIOXIDE - CO2 2024-05-16 13:45 [facility] 24 mmol/l As of August 2022 testing method has changed, this may include reference ranges. ALBUMIN 2024-05-16 13:45 [facility] 3.8 g/dl As of August 2022 testing method has changed, this may include reference ranges. AST ASPARTATE AMINOTRANSFERASE 2024-05-16 13:45 [facility] 30 iu/l As of August 2022 testing method has changed, this may include reference ranges. BUN - BLOOD UREA NITROGEN 2024-05-16 13:45 [email or web address] 32 mg/dl As of Aug testing method has changed, this may include reference ranges. POTASSIUM 2024-05-16 13:45 [facility] 4.7 mmol/l As of August 2022 testing method has changed, this may include reference ranges. ALT ALANINE AMINOTRANSFERASE 2024-05-16 13:45 [facility] 45 iu/l As of August 2022 testing method has changed, this may include reference ranges. GFR - MDRD 2024-05-16 13:45 [email or web address] 46 (yenny rogers) Social History date description facility
[2024-05-31] MEDS ORDERED: SODIUM CHLORIDE FLUSH 0.9% 10 ML SYRINGE IVP PRN (16:57)
[2024-05-31] MEDS ORDERED: ONDANSETRON 4 MG/2 ML VIAL IVP PRN (16:57)
[2024-05-31] MEDS ORDERED: ACETAMINOPHEN 325 MG TABLET PO PRN (16:57)
[2024-05-31] MEDS ORDERED: ONDANSETRON ODT 4 MG TABLET TL PRN (16:57)
[2024-05-31] MEDS: SODIUM CHLORIDE FLUSH 0.9% 10 ML SYRINGE IVP SCH (17:11)
--- NOTE | 2024-05-31 17:22 | HISTORY & PHYSICAL EXAMINATION ---
Chief Complaint Chief Complaint Chief Complaint: Fall History of Present Illness Admitted From Admitted From:: Home History Obtained From History obtained from: Patient interview Exam Limitations: Poor historian History of Present Illness HPI Comment/Other: 68-year-old male PMH CHF, diabetes, CKD, unsure stage, cirrhosis experienced a ground-level fall onto his left knee and was unable to get up due to generalized weakness. He was seen recently by PCP, where he underwent paracentesis. He has had BLE swelling over the past few weeks which is gradually been worsening. In the ER, he was noted to have creatinine 1.6. BNP 1286. He had significant swelling in his legs all the way up to the level of his abdomen, so hospitalist was contacted for admission for CHF exacerbation/anasarca Meds/Allgy Home Medications Ambulatory Orders Medication Instructions Recorded Confirmed amitriptyline 75 mg tablet 75 mg PO HS 11/09/22 05/31/24 mirtazapine 15 mg tablet 15 mg PO HS 11/09/22 05/31/24 atorvastatin 40 mg tablet 40 mg PO QDAY 01/10/24 05/31/24 blood sugar diagnostic (True 01/10/24 05/24/24 Metrix Glucose Test Strip) blood-glucose sensor (FreeStyle 01/10/24 05/24/24 Nitin 3 Plus Sensor device) lancets 33 gauge (TRUEplus Lancets) 01/10/24 05/24/24 metformin 1,000 mg tablet 1,000 mg PO BID 01/10/24 05/31/24 pen needle, diabetic 31 gauge x 01/10/24 05/24/24 5/16" (Pen Needle) insulin glargine 100 unit/mL (3 6 unit subcut QAM 03/28/24 05/31/24 mL) subcutaneous pen (Lantus Solostar U-100 Insulin) omeprazole 20 mg capsule,delayed 20 mg PO QDAY #30 caps 03/28/24 05/31/24 release insulin lispro 200 unit/mL (3 mL) 1 sliding scale dose subcut 04/02/24 05/24/24 subcutaneous pen USEASDIRECTD #6 mL insulin lispro 100 unit/mL 1 sliding scale dose subcut 05/01/24 05/24/24 subcutaneous pen (Humalog KwikPen (U-100) Insulin) spironolactone 100 mg tablet 100 mg PO QAM #30 tabs 05/17/24 05/31/24 furosemide 20 mg tablet 20 mg PO Q OTHER DAY PRN edema #90 05/18/24 05/31/24 tabs Allergies Allergies Allergy/AdvReac Type Severity Reaction Status Date / Time desipramine AdvReac Severe vivid dream Verified 05/31/24 11:48 drospirenone AdvReac Severe Unknown Verified 05/31/24 11:48 lithium AdvReac Severe shakes Verified 05/31/24 11:48 sertraline (From Zoloft) AdvReac Severe suicidal Verified 05/31/24 11:48 Tetracyclines AdvReac Severe Nausea Verified 05/31/24 11:48 trazodone AdvReac Severe "zombie" Verified 05/31/24 11:48 selective serotonin reuptake Allergy Severe Hallucinati Uncoded 05/31/24 11:48 inhibitors (SSRIs) ons PFSH Active Problems All Active Problems (Updated 05/31/24 @ 13:33 by Laura He DNP) Anasarca (Acute) Acute exacerbation of CHF (congestive heart failure) (Acute) Therapeutic drug monitoring (Acute) Inguinal hernia, left (Acute) Lower extremity ulceration (Acute) Cirrhosis (Acute) Peripheral edema (Acute) Scrotal edema (Acute) GERD (gastroesophageal reflux disease) (Acute) Anxiety and depression (Acute) Hyperlipidemia (Acute) Essential hypertension, benign (Acute) Type 2 diabetes mellitus with foot ulcer (Acute) Peripheral vascular disease, unspecified (Acute) DM type 2 (diabetes mellitus, type 2) (Acute) Poor personal hygiene (Acute) Noncompliance with diabetes treatment (Acute) Medical History Medical History (Updated 05/31/24 @ 13:33 by Laura He DNP) History of diabetic ketoacidosis Social History Social History Smoking Status: Current every day smoker Number of Years Smoked: 40 How many cigarettes a day do you smoke? (20 cigarettes=1 Pk): 10 Do you dip or chew tobacco?: No Do you vape?: No Patient requests smoking cessation consult: Yes Initiate information on smoking cessation: Yes Living arrangement: At home Marital Status: Single Living Condition: Alone Relationship: Level: Independent Do you feel safe in your home environment?: No (less strength in legs.) Suffered physical, verbal, emotional, or financial abuse?: No History of Abuse: No ETOH Use: None Frequency: Occasional Substance Use: cannabis (any form) POLST Patient has POLST: No Review of Systems Status of ROS: 10 or more systems reviewed and unremarkable except as noted in history and below Constitutional Denies: Fever or Chills Cardiovascular Reports: edema; Denies: Irregular heart rate, chest pain or shortness of breath with exertion Respiratory Denies: Shortness of breath, Cough or Sputum production Gastrointestinal Reports: Abdominal distention (Improved after paracentesis); Denies: Abdominal pain Exam Exam Vital Signs: Vital Signs x48h Temp Pulse Pulse Resp BP BP Pulse Ox 05/31/24 16:58 36.4 C L 88 20 123/86 92 05/31/24 16:38 36.6 C 17 05/31/24 16:26 86 20 117/80 94 05/31/24 14:55 90 16 113/81 96 05/31/24 13:33 89 16 116/87 98 05/31/24 12:39 89 17 108/81 97 05/31/24 11:45 37.0 C 92 20 116/77 100 Constitutional normal general appearance and no apparent distress Poor dentition, overall hygiene HENMT normocephalic and head/scalp atraumatic Eyes PERRL Neck/C-Spine visual inspection normal Lymph no lymphadenopathy noted Chest inspection of chest normal Respiratory breath sounds equal bilaterally Cardiovascular normal heart rate noted Gastrointestinal Protuberant abdomen, flank edema. Nontender to palpation Extremities 3+ pitting edema BLE up to the level of the abdomen and including scrotum Neurology GCS 15 Psychiatry oriented x3 Skin Scattered abrasions across both shins and varying stages of healing Conclusion/Plan Problem List (1) Acute exacerbation of CHF (congestive heart failure): Plan: Obtain echocardiogram Received 40 mg IV Lasix in ER, I have ordered 40 mg twice daily diuretic IV Telemetry Strict intake and output (2) Cirrhosis: Plan: This is a chronic disease for him, managed by his PCP He underwent diagnostic paracentesis on 05/26/2024. Ascitic fluid with marked mixed inflammation, negative for malignant cells Unsure if ascitic fluid was cultured (3) DM type 2 (diabetes mellitus, type 2): Plan: On insulin and metformin at home Holding metformin for now, starting SSI Plan Admit inpatient med floor DNR, intubation okay He names his sister as his surrogate decision-maker Lab Results Lab results reviewed: Yes 05/31/24 12:24 05/31/24 12:24 Core Measures Anticipated LOS I expect patient to be DC'd or transferred within 96 hours.: Yes DVT/VTE - Prophylaxis VTE/DVT Prophylaxis med ordered at admit?: Yes
[2024-05-31] MEDS: INSULIN LISPRO 300 UNIT/3 ML PEN SUBQ SCH (21:25)
[2024-06-01 05:31] LABS: BASOPHILS # (AUTO) 0.1 10^3/uL (0.0-0.1); BASOPHILS % (AUTO) 0.7 %; EOSINOPHILS # (AUTO) 0.1 10^3/uL (0.0-0.7); EOSINOPHILS % (AUTO) 0.9 %; HCT - HEMATOCRIT 34.2 % (42.0-52.0); HGB - HEMOGLOBIN 10.8 g/dL (14.0-18.0); LYMPHOCYTES % (AUTO) 13.8 %; MEAN CORPUSCULAR HEMOGLOBIN 28.2 pg (27.0-31.0); MEAN CORPUSCULAR HGB CONC 31.6 g/dL (32.0-36.0); MEAN CORPUSCULAR VOLUME 89.3 fL (80.0-94.0); MEAN PLATELET VOLUME 10.1 fL (7.4-11.4); MONOCYTES # (AUTO) 0.5 10^3/uL (0.0-1.0); MONOCYTES % (AUTO) 6.4 %; NEUTROPHILS # (AUTO) 5.8 10^3/uL (1.5-6.6); NEUTROPHILS % (AUTO) 77.9 %; PLT - PLATELET COUNT 218 10^3/uL (130-450); RED BLOOD COUNT 3.83 10^6/uL (4.70-6.10); RED CELL DISTRIBUTION WIDTH 17.2 % (12.0-15.0); WHITE BLOOD COUNT 7.4 x10^3/uL (4.8-10.8)
[2024-06-01 05:50] LABS: CREATININE 1.5 mg/dL (0.6-1.3); POTASSIUM 4.4 mmol/L (3.5-4.5)
--- NOTE | 2024-06-01 05:56 | PROVIDER PROGRESS NOTE ---
Dump Motor Operator Note Dump Motor Operator Note Dump Motor Operator Note: per rn "Pt admitted for CHF exacerbation and +3 pitting edema in bilateral legs. Pt has IV lasix scheduled to give right now, however right side BP 83/59 and left side 98/62. Do you want mwe to hold lasix? Any other orders?" hold lasix albumin x 1 dose (25%) now
[2024-06-01] MEDS: FUROSEMIDE 40 MG/4 ML VIAL IVP SCH (06:00)
[2024-06-01] MEDS: ALBUMIN 25% 12.5 GM/50 ML VIAL IV STA (06:11)
[2024-06-01] MEDS: BUMETANIDE INJ 10 MG in SODIUM CHLORIDE 0.9% 210 ML IV SCH (07:52)
[2024-06-01] MEDS: ENOXAPARIN 40 MG/0.4 ML SYRINGE SUBQ SCH (08:12)
[2024-06-01 09:50] LABS: ESTIMATED AVERAGE GLUCOSE 174 mg/dL (70-100); HEMOGLOBIN A1c% 7.7 % (4.27-6.07)
--- NOTE | 2024-06-01 13:03 | ECHO Report ---
Version: 1 Study ID: [id number] [address] [place] [address] Adult Echocardiogram Report Name: CHLOÉ ALBERTS Study Date: 06/01/2024, 11: 11 AM BP : 105 / 68 mmHg Patient Location: [facility] [id number] HR: 95 bpm : 1955 (MM/DD/YYYY) Gender: Male He ight: 69 in Age: 68 Years Weight: 180 lb Reason For Study: CHF eval History: Cirrhosis with ground level fall - CHF evaluation Procedure: A complete two-dimensional transthoracic echocardiogram was performed (2D, M-mode, Doppler and color flow Doppler). Indication: Evaluate cardiac and valve function. The study was done with the patient in the supine po sition, due to inability to lie on the left side. Interpretation Summary 1. The left ventricle is mildly dilated. There is severe global hypokinesis of the left ventricle. Th e visual left ventricular ejection fraction is estimated at 15-20%. 2. The right ventricle is severely dilated. The right ventricular systolic function is severely decre ased. 3. There is mild mitral regurgitation. 4. Moderate to severe tricuspid regurgitation present. The pulmonary artery systolic pressure is 46mm Hg. Left Ventricle: The left ventricle is mildly dilated. There is normal left ventricular wall thickness. Prominent trab eculations are seen in the left ventricular apex. Thrombus can not be excluded. Global left ventricular systolic function is severely decreased. The visual left ventricular ejection fraction is estimated at less than 20%. There is anne marie re global hypokinesis of the left ventricle. Diastolic function could not be accurately assessed due to irregul ar rhythm. Right Ventricle: The right ventricle is severely dilated. The basal right ventricular diameter measured from a right v entricular focused view is 5.0 cm. The right ventricular systolic function is severely decreased. The right ventricular fractional area change (FAC) is 8.5%. Aortic Valve: The aortic valve is trileaflet. The aortic valve is mildly thickened. Aortic valve sclerosis is prese nt without stenosis. No aortic regurgitation is present. Mitral Valve: The mitral valve leaflets are mildly thickened. The reduced mitral leaflet separation suggests decrea sed flow through the mitral valve and poor cardiac output. There is mild mitral regurgitation. Tricuspid Valve: The tricuspid valve leaflets are mildly thickened. The tricuspid valve annulus is severely enlarged. Moderate to severe tricuspid regurgitation present. The flow in the hepatic veins is reversed during ventricular systole . Pulmonic Valve: The pulmonic valve is normal in structure and function. Trace pulmonic valvular regurgitation is pres ent. Left Atrium: The left atrium is moderately dilated. The left atrial volume indexed to body surface area is 42 ml/m 2. This refers to the maximal volume measured prior to mitral valve opening. Right Atrium: The right atrium is severely dilated. The inferior vena cava is mildly dilated with mildly decreased collapse with sniff (estimated right atrial pressure 10-15mmHg). Atrial Septum: The inter-atrial septum is shifted leftward, consistent with high right atrial pressure. Aorta: The diameter of the ascending aorta is 3.0 cm. The aortic annulus measures 3.7cm in diameter. Pulmonary Artery: The pulmonary artery systolic pressure, calculated from a peak tricuspid regurgitant velocity in conj unction with an estimated right atrial pressure, is 46mmHg. Pericardium/Pleural Space: There is no pericardial effusion. Bilateral pleural effusions are present. Abdominal ascites is seen. CPT Codes: 11351/[id number]: Transthoracic Echo with Spectral and Color Doppler. Doppler Measurements & Calculations LV V1 max: 52.3 cm/sec LV V1 max P.10 mmHg LV V1 mean: 36.6 cm/sec LV V1 mean P.60 mmHg LV V1 VTI: 8.0 cm PA max P.48 mmHg PA V2 max: 34.5 cm/sec RAP systole: 15.0 mmHg TR max P.4 mmHg TR max oracio: 280.3 cm/sec MMode/2D Measurements & Calculations Ao root diam: 3.7 cm EDV(MOD-sp4): 112.5 ml EF (est.): 14.0 % ESV(MOD-sp4): 96.2 ml ESV(sp4-el): 82.6 ml Heart Rate: 95.0 BPM Height (metric): 175.3 cm IVSd: 1.00 cm LA A4C-A/L_phl: 23.7 cm² LA dimension: 5.8 cm LA ESV-A/L_phl: 79.4 ml LAV(MOD-sp2): 78.7 ml LAV(MOD-sp4): 80.7 ml LVIDd: 5.3 cm LVIDs: 5.0 cm LVLd ap4: 9.0 cm LVLs ap4: 8.6 cm LVOT diam: 2.32 cm LVPWd: 1.04 cm RV EDA_phl: 25.5 cm² RV ESA_phl: 23.3 cm² RV FAC_phl: 8.5 % Systolic Pressure: 105.0 mmHg Other Measurements & Calculations Ao root diam: 3.7 cm BMI: 26.6 kilograms/m² BSA: 1.98 m² BSA([facility]): 2.01 m² Diastolic Pressure: 68.0 mmHg EDV(MOD-sp4): 112.5 ml EDV(Teich): 136.6 ml EF (est.): 14.0 % EF(MOD-sp4): 14.5 % EF(Teich): 13.8 % ESV(MOD-sp4): 96.2 ml ESV(sp4-el): 82.6 ml ESV(Teich): 117.8 ml FS: 6.2 % Heart Rate: 95.0 BPM Height (metric): 175.3 cm IVSd: 1.00 cm LA A4C-A/L_phl: 23.7 cm² LA dimension: 5.8 cm LA ESV-A/L_phl: 79.4 ml LAV(MOD-sp2): 78.7 ml LAV(MOD-sp4): 80.7 ml LV V1 max: 52.3 cm/sec LV V1 mean: 36.6 cm/sec LV V1 mean P.60 mmHg LVIDd: 5.3 cm LVIDs: 5.0 cm LVLd ap4: 9.0 cm LVLs ap4: 8.6 cm LVOT area: 4.2 cm² LVOT diam: 2.32 cm LVPWd: 1.04 cm PA max P.48 mmHg PA V2 max: 34.5 cm/sec RAP systole: 15.0 mmHg RV EDA_phl: 25.5 cm² RV ESA_phl: 23.3 cm² RV FAC_phl: 8.5 % RVSP(TR): 46.4 mmHg SV(LVOT): 33.9 ml SV(MOD-sp4): 16.3 ml Systolic Pressure: 105.0 mmHg TR max P.4 mmHg TR max oracio: 280.3 cm/sec TV max P.4 mmHg Weight (metric): 81.6 kg Ced May MD 06/01/2024, 1: 02 PM Ordering Physician: Lalo Almonte Referring Physician: Laura He Performed By: Emily Godinez RDCS
--- NOTE | 2024-06-01 13:58 | PROVIDER PROGRESS NOTE ---
Subjective Prog Note Date Prog Note Date: 06/01/24 Subjective Pt reports feeling: Improved Current Medications Current Medications Current Medications: Current Medications Generic Name Dose Route Start Last Admin Trade Name Freq PRN Reason Stop Dose Admin Acetaminophen 650 mg 05/31/24 16:57 Acetaminophen 325 Mg Tablet PO Q4HR PRN Pain 1 to 4, or Fever Enoxaparin Sodium 40 mg 06/01/24 09:00 06/01/24 08:12 Enoxaparin 40 Mg/0.4 Ml Syringe SUBQ 40 mg DAILY TODD Administration Bumetanide 10 mg/ Sodium 250 mls @ 12.5 mls/hr 06/01/24 08:00 06/01/24 07:52 Chloride IV 0.5 mg/hr .Q20H TODD 12.5 mls/hr Administration Protocol 0.5 MG/HR Insulin Human Lispro 1 - 5 unit 05/31/24 21:00 06/01/24 11:37 Insulin Lispro 300 Unit/3 Ml Pen SUBQ 3 unit 0800,1200,1700,2100 [facility] Administration Protocol Ondansetron HCl 4 mg 05/31/24 16:57 Ondansetron Odt 4 Mg Tablet TL Q6HR PRN Nausea / Vomiting Ondansetron HCl 4 mg 05/31/24 16:57 Ondansetron 4 Mg/2 Ml Vial IVP Q6HR PRN Nausea / Vomiting Sodium Chloride 10 ml 05/31/24 16:57 Sodium Chloride Flush 0.9% 10 Ml Syringe IVP PRN PRN NEEDED PER PROVIDER ORDERS Sodium Chloride 10 ml 05/31/24 17:00 06/01/24 08:05 Sodium Chloride Flush 0.9% 10 Ml Syringe IVP 10 ml 0100,0900,1700 TODD Administration Objective Vital Signs/Intake & Output Reviewed Vital Signs: Yes Vital Signs: Vital Signs x48h Temp Pulse Resp BP Pulse Ox 06/01/24 12:16 36.3 C L 100 20 109/74 95 06/01/24 07:56 91 105/68 06/01/24 07:29 36.5 C 92 18 106/71 97 Intake & Output: Intake & Output 05/29/24 05/30/24 05/31/24 06/01/24 23:59 23:59 23:59 23:59 Intake Total 400 / 400 880 / 880 Output Total 1150 / 1150 Balance -750 / -750 880 / 880 Weight (kg) 81.647 kg Objective General Appearance: positive No acute distress and Alert Eyes Bilateral: positive Normal inspection ENT: positive ENT inspection nml Neck: positive Nml inspection Respiratory: positive Chest non-tender Cardiovascular: positive Regular rate & rhythm Abdomen: positive Other (Protuberant, soft abdomen with flank edema) Skin: positive Color nml Extremities: positive Non-tender and Pedal edema Neurologic/Psychiatric: positive Oriented x3 Lab Results 06/01/24 05:24 06/01/24 05:24 Other Labs: Lab Results x24hrs 06/01/24 06/01/24 06/01/24 Range/Units 11:09 07:22 05:24 WBC 7.4 (4.8-10.8) x10^3/uL RBC 3.83 L (4.70-6.10) 10^6/uL Hgb 10.8 L (14.0-18.0) g/dL Hct 34.2 L (42.0-52.0) % MCV 89.3 (80.0-94.0) fL MCH 28.2 (27.0-31.0) pg MCHC 31.6 L (32.0-36.0) g/dL RDW 17.2 H (12.0-15.0) % Plt Count 218 (130-450) 10^3/uL MPV 10.1 (7.4-11.4) fL Neut # (Auto) 5.8 (1.5-6.6) 10^3/uL Lymph # (Auto) 1.0 L (1.5-3.5) 10^3/uL Hyde # (Auto) 0.5 (0.0-1.0) 10^3/uL Eos # (Auto) 0.1 (0.0-0.7) 10^3/uL Baso # (Auto) 0.1 (0.0-0.1) 10^3/uL Absolute Nucleated RBC 0.00 x10^3/uL Nucleated RBC % 0.0 /100WBC Sodium 139 (135-145) mmol/L Potassium 4.4 (3.5-4.5) mmol/L Chloride 104 (101-111) mmol/L Carbon Dioxide 28 (21-32) mmol/L Anion Gap 7.0 (6-13) BUN 40 H (6-20) mg/dL Creatinine 1.5 H (0.6-1.3) mg/dL Estimated GFR (MDRD) 46 L (>89) Glucose 182 H (74-104) mg/dL POC Whole Bld Glucose 254 150 (70-100) mg/dL Estimat Average Glucose 174 H (70-100) mg/dL Hemoglobin A1c % 7.7 H (4.27-6.07) % Calcium 8.0 L (8.5-10.3) mg/dL 05/31/24 Range/Units 20:48 WBC (4.8-10.8) x10^3/uL RBC (4.70-6.10) 10^6/uL Hgb (14.0-18.0) g/dL Hct (42.0-52.0) % MCV (80.0-94.0) fL MCH (27.0-31.0) pg MCHC (32.0-36.0) g/dL RDW (12.0-15.0) % Plt Count (130-450) 10^3/uL MPV (7.4-11.4) fL Neut # (Auto) (1.5-6.6) 10^3/uL Lymph # (Auto) (1.5-3.5) 10^3/uL Hyde # (Auto) (0.0-1.0) 10^3/uL Eos # (Auto) (0.0-0.7) 10^3/uL Baso # (Auto) (0.0-0.1) 10^3/uL Absolute Nucleated RBC x10^3/uL Nucleated RBC % /100WBC Sodium (135-145) mmol/L Potassium (3.5-4.5) mmol/L Chloride (101-111) mmol/L Carbon Dioxide (21-32) mmol/L Anion Gap (6-13) BUN (6-20) mg/dL Creatinine (0.6-1.3) mg/dL Estimated GFR (MDRD) (>89) Glucose (74-104) mg/dL POC Whole Bld Glucose 197 (70-100) mg/dL Estimat Average Glucose (70-100) mg/dL Hemoglobin A1c % (4.27-6.07) % Calcium (8.5-10.3) mg/dL Assessment/Plan Problem List (1) Acute exacerbation of CHF (congestive heart failure): Impression: Echocardiogram performed today shows LVEF approximately 15 to 20%, severe dilation of right ventricle, mild mitral regurgitation, moderate to severe tricuspid regurgitation with pulmonary artery systolic pressure 46 mmHg Soft blood pressures overnight, he has been changed from Lasix IV push to Bumex drip at 0.5 mg/hour Continue strict intake and output If his pressure cannot support continued Bumex drip, will consider albumin versus transfer to ICU for vasopressor support as he needs very aggressive diuresis at this time Holding off on GDMT for HFrEF as we are diuresing him and he is hypotensive. Will slowly add these drugs at a later time (2) Cirrhosis: Impression: Cirrhosis with ascites Diagnostic paracentesis 05/26/2024 negative for malignant cells Diuresis as above (3) DM type 2 (diabetes mellitus, type 2): Impression: Restarting home dose 6 units Lantus daily Continue SSI A1c 7.7 today, will slowly adjust insulin regimen while he is inpatient and coordinate updated insulin recommendations with diabetes management team at discharge
[2024-06-01] MEDS: INSULIN GLARGINE-YFGN 300 UNIT/3 ML PEN SUBQ SCH (14:29)
[2024-06-01] MEDS: PANTOPRAZOLE 40 MG TABLET PO SCH (14:39)
--- NOTE | 2024-06-01 17:43 | PHARMACY PROGRESS NOTE ---
Best Possible Medication History Admit Date and Time: 05/31/24 1449 Home Medications Medication Instructions Recorded Confirmed Type amitriptyline 75 mg tablet 75 mg PO HS 11/09/22 05/31/24 History mirtazapine 15 mg tablet 15 mg PO HS 11/09/22 05/31/24 History atorvastatin 40 mg tablet 40 mg PO QDAY 01/10/24 05/31/24 History blood sugar diagnostic (True 01/10/24 05/24/24 History Metrix Glucose Test Strip) blood-glucose sensor (FreeStyle 01/10/24 05/24/24 History Nitin 3 Plus Sensor device) lancets 33 gauge (TRUEplus Lancets) 01/10/24 05/24/24 History metformin 1,000 mg tablet 1,000 mg PO BID 01/10/24 05/31/24 History pen needle, diabetic 31 gauge x 01/10/24 05/24/24 History 5/16" (Pen Needle) insulin glargine 100 unit/mL (3 5 unit subcut QAM 03/28/24 06/01/24 History mL) subcutaneous pen (Lantus Solostar U-100 Insulin) omeprazole 20 mg capsule,delayed 20 mg PO QDAY #30 caps 03/28/24 05/31/24 Rx release insulin lispro 100 unit/mL 2 unit subcut TID 05/01/24 06/01/24 History subcutaneous pen (Humalog KwikPen (U-100) Insulin) spironolactone 100 mg tablet 100 mg PO QAM #30 tabs 05/17/24 05/31/24 Rx furosemide 20 mg tablet 20 mg PO ONCE PRN edema 06/01/24 06/01/24 History Processed by: Pharmacy Medications reviewed in ED?: No Medication History completed: Yes Patient Interview: Completed Secondary Source(s): Insurance records [facility] Statement: Per patient interview and review of [facility] insurance records. As the person ultimately responsible for medication therapy, providers are able to order a medication from an existing home medication list in [facility] via the "Reconcile Routine" prior to Confirmation of that medication by it support consultant. Such practice is discouraged except when the physician, in their clinical judgment, deems that a medical need exists for a medication without regard to previous use.
[2024-06-01] MEDS: INSULIN LISPRO 300 UNIT/3 ML PEN SUBQ SCH (21:00)
[2024-06-01] MEDS: AMITRIPTYLINE 25 MG TABLET PO SCH (21:02)
[2024-06-01] MEDS: MIRTAZAPINE 15 MG TABLET PO SCH (21:02)
[2024-06-01] MEDS: ATORVASTATIN 40 MG TABLET PO SCH (21:02)
[2024-06-02 05:36] LABS: BASOPHILS # (AUTO) 0.1 10^3/uL (0.0-0.1); BASOPHILS % (AUTO) 0.8 %; EOSINOPHILS # (AUTO) 0.1 10^3/uL (0.0-0.7); EOSINOPHILS % (AUTO) 1.1 %; HCT - HEMATOCRIT 35.2 % (42.0-52.0); HGB - HEMOGLOBIN 11.2 g/dL (14.0-18.0); LYMPHOCYTES % (AUTO) 13.6 %; MEAN CORPUSCULAR HEMOGLOBIN 28.6 pg (27.0-31.0); MEAN CORPUSCULAR HGB CONC 31.8 g/dL (32.0-36.0); MEAN CORPUSCULAR VOLUME 89.8 fL (80.0-94.0); MEAN PLATELET VOLUME 10.2 fL (7.4-11.4); MONOCYTES # (AUTO) 0.4 10^3/uL (0.0-1.0); MONOCYTES % (AUTO) 5.8 %; NEUTROPHILS # (AUTO) 5.7 10^3/uL (1.5-6.6); NEUTROPHILS % (AUTO) 78.6 %; PLT - PLATELET COUNT 247 10^3/uL (130-450); RED BLOOD COUNT 3.92 10^6/uL (4.70-6.10); RED CELL DISTRIBUTION WIDTH 17.2 % (12.0-15.0); WHITE BLOOD COUNT 7.2 x10^3/uL (4.8-10.8)
[2024-06-02 05:48] LABS: CALCIUM 8.1 mg/dL (8.5-10.3); CREATININE 1.7 mg/dL (0.6-1.3); POTASSIUM 4.5 mmol/L (3.5-4.5)
--- NOTE | 2024-06-02 14:21 | OT Plan of Care ---
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 Pt adm from home s/p ground level fall. Cleared for therapy evaluation. Met sitting in chair, A &Ox4, willing to participate with therapy. Performed sit to stand MOD A and ambulation to/ from bathroom using RW MOD A Unsteady, and slowed gait. Quick to fatigue. Currently MAX A LB, MIN A UB ADL with full set up and increased time. Overall presents with decreased endurance, activity tolerance and ADL status. Will benefit from cont OT services during acute stay. Rec d/ c to SNF at this time. Goals - Activities of Daily Living Improve Upper Extremity Modified Independent Dressing to: Improve Lower Extremity Modified Independent Dressing to: Improve Grooming/Hygiene to: Modified Independent Improve Bathing to: Modified Independent Improve Toileting to: Modified Independent Plan Treatment Frequency 1x/day Duration Until discharge -Discharge Recommendations Discharge Location [facility] Transport Needs at Discharge Wheelchair van
--- NOTE | 2024-06-02 15:03 | PT Plan of Care ---
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 Admitted to hospital d/t CHF exacerbation. Pt reportedly Philip at baseline and amb with FWW. Was participating in regular OPPT until approx 1 month ago and he states his PCP recommended stopping PT until his CHF is better controlled. Upon PT eval, pt met sitting in chair, A&Ox4, willing to participate with therapy. Performed sit to stand modA and ambulation to/from bathroom using FWW and modA. Gait pattern with lateral LOB upon turning and reduced toe clearance. Overall strength approx 3-/5 globally. Pt presenting with reduced endurance, activity tolerance and gait impairments. Pt will benefit from skilled PT services in acute setting to progress functional mobility tolerance. When medically clear, PT rec dc to SNF for further rehab GOALS Improve supine to sit to:: Modified Independent Improve sit to stand to:: Modified Independent Improve pivot transfer ability to:: Modified Independent Improve sit to supine to:: Modified Independent Improve gait ability to:: Min A Advance Assistive Device to:: Front Wheeled Walker Increase distance walked to (in feet):: 100 PLAN Frequency: 1-2x/day Duration: Until goals are met DISCHARGE RECOMMENDATIONS [facility] Equipment Recommended: Front wheeled walker Transport Needs at Discharge: Wheelchair van
--- NOTE | 2024-06-02 15:41 | PROVIDER PROGRESS NOTE ---
Subjective Prog Note Date Prog Note Date: 06/02/24 Subjective Pt reports feeling: Improved Current Medications Current Medications Current Medications: Current Medications Generic Name Dose Route Start Last Admin Trade Name Freq PRN Reason Stop Dose Admin Acetaminophen 650 mg 05/31/24 16:57 Acetaminophen 325 Mg Tablet PO Q4HR PRN Pain 1 to 4, or Fever Amitriptyline HCl 75 mg 06/01/24 21:00 06/01/24 21:02 Amitriptyline 25 Mg Tablet PO 75 mg HS TODD Administration Atorvastatin Calcium 40 mg 06/01/24 21:00 06/01/24 21:02 Atorvastatin 40 Mg Tablet PO 40 mg QPM TODD Administration Enoxaparin Sodium 40 mg 06/01/24 09:00 06/02/24 09:53 Enoxaparin 40 Mg/0.4 Ml Syringe SUBQ 40 mg DAILY TODD Administration Bumetanide 10 mg/ Sodium 250 mls @ 12.5 mls/hr 06/01/24 08:00 06/02/24 09:50 Chloride IV 0.5 mg/hr .Q20H TODD 12.5 mls/hr Titration Protocol 0.5 MG/HR Insulin Glargine-yfgn 5 unit 06/03/24 08:00 Insulin Glargine-Yfgn 300 Unit/3 Ml Pen SUBQ QDBREAKFAST TODD Insulin Human Lispro 1 - 9 unit 06/01/24 21:00 06/02/24 12:16 Insulin Lispro 300 Unit/3 Ml Pen SUBQ 7 unit 0800,1200,1700,2100 TODD Administration Protocol Mirtazapine 15 mg 06/01/24 21:00 06/01/24 21:02 Mirtazapine 15 Mg Tablet PO 15 mg HS TODD Administration Ondansetron HCl 4 mg 05/31/24 16:57 Ondansetron Odt 4 Mg Tablet TL Q6HR PRN Nausea / Vomiting Ondansetron HCl 4 mg 05/31/24 16:57 Ondansetron 4 Mg/2 Ml Vial IVP Q6HR PRN Nausea / Vomiting Pantoprazole Sodium 40 mg 06/01/24 14:05 06/02/24 05:04 Pantoprazole 40 Mg Tablet PO 40 mg QDAC TODD Administration Sodium Chloride 10 ml 05/31/24 16:57 Sodium Chloride Flush 0.9% 10 Ml Syringe IVP PRN PRN NEEDED PER PROVIDER ORDERS Sodium Chloride 10 ml 05/31/24 17:00 06/02/24 08:06 Sodium Chloride Flush 0.9% 10 Ml Syringe IVP Not Given 0100,0900,1700 [facility] Objective Vital Signs/Intake & Output Reviewed Vital Signs: Yes Vital Signs: Vital Signs x48h Temp Pulse Resp Resp BP BP Pulse Ox 06/02/24 14:15 123/77 06/02/24 12:30 36.4 C L 93 16 105/71 95 06/02/24 12:10 92 H 123/77 06/02/24 10:02 96 06/02/24 08:50 06/02/24 08:17 97 O2 Flow Rate 06/02/24 14:15 06/02/24 12:30 06/02/24 12:10 06/02/24 10:02 06/02/24 08:50 2 06/02/24 08:17 2 Intake & Output: Intake & Output 05/30/24 05/31/24 06/01/24 06/02/24 23:59 23:59 23:59 23:59 Intake Total 400 / 400 1430 / 1430 838 / 838 Output Total 1150 / 1150 1150 / 1150 3300 / 3300 Balance -750 / -750 280 / 280 -2462 / -2462 Weight (kg) 81.647 kg Objective General Appearance: positive No acute distress and Alert Eyes Bilateral: positive Normal inspection ENT: positive ENT inspection nml Neck: positive Nml inspection Respiratory: positive Chest non-tender Cardiovascular: positive Regular rate & rhythm Abdomen: positive Other (Protuberant, soft abdomen with flank edema) Skin: positive Color nml Extremities: positive Non-tender and Pedal edema (Improved from yesterday) Neurologic/Psychiatric: positive Oriented x3 Lab Results 06/02/24 05:07 06/02/24 05:07 Other Labs: Lab Results x24hrs 06/02/24 06/02/24 06/02/24 Range/Units 11:22 07:21 05:07 WBC 7.2 (4.8-10.8) x10^3/uL RBC 3.92 L (4.70-6.10) 10^6/uL Hgb 11.2 L (14.0-18.0) g/dL Hct 35.2 L (42.0-52.0) % MCV 89.8 (80.0-94.0) fL MCH 28.6 (27.0-31.0) pg MCHC 31.8 L (32.0-36.0) g/dL RDW 17.2 H (12.0-15.0) % Plt Count 247 (130-450) 10^3/uL MPV 10.2 (7.4-11.4) fL Neut # (Auto) 5.7 (1.5-6.6) 10^3/uL Lymph # (Auto) 1.0 L (1.5-3.5) 10^3/uL [place] # (Auto) 0.4 (0.0-1.0) 10^3/uL Eos # (Auto) 0.1 (0.0-0.7) 10^3/uL Baso # (Auto) 0.1 (0.0-0.1) 10^3/uL Absolute Nucleated RBC 0.00 x10^3/uL Nucleated RBC % 0.0 /100WBC Sodium 139 (135-145) mmol/L Potassium 4.5 (3.5-4.5) mmol/L Chloride 101 (101-111) mmol/L Carbon Dioxide 32 (21-32) mmol/L Anion Gap 6.0 (6-13) BUN 41 H (6-20) mg/dL Creatinine 1.7 H (0.6-1.3) mg/dL Estimated GFR (MDRD) 40 L (>89) Glucose 162 H (74-104) mg/dL POC Whole Bld Glucose 276 157 (70-100) mg/dL Calcium 8.1 L (8.5-10.3) mg/dL 06/02/24 06/01/24 06/01/24 Range/Units 01:41 20:50 16:34 WBC (4.8-10.8) x10^3/uL RBC (4.70-6.10) 10^6/uL Hgb (14.0-18.0) g/dL Hct (42.0-52.0) % MCV (80.0-94.0) fL MCH (27.0-31.0) pg MCHC (32.0-36.0) g/dL RDW (12.0-15.0) % Plt Count (130-450) 10^3/uL MPV (7.4-11.4) fL Neut # (Auto) (1.5-6.6) 10^3/uL Lymph # (Auto) (1.5-3.5) 10^3/uL [place] # (Auto) (0.0-1.0) 10^3/uL Eos # (Auto) (0.0-0.7) 10^3/uL Baso # (Auto) (0.0-0.1) 10^3/uL Absolute Nucleated RBC x10^3/uL Nucleated RBC % /100WBC Sodium (135-145) mmol/L Potassium (3.5-4.5) mmol/L Chloride (101-111) mmol/L Carbon Dioxide (21-32) mmol/L Anion Gap (6-13) BUN (6-20) mg/dL Creatinine (0.6-1.3) mg/dL Estimated GFR (MDRD) (>89) Glucose (74-104) mg/dL POC Whole Bld Glucose 76 260 266 (70-100) mg/dL Calcium (8.5-10.3) mg/dL Assessment/Plan Problem List (1) Acute exacerbation of CHF (congestive heart failure): Impression: Echocardiogram performed today shows LVEF approximately 15 to 20%, severe dilation of right ventricle, mild mitral regurgitation, moderate to severe tricuspid regurgitation with pulmonary artery systolic pressure 46 mmHg Soft blood pressures overnight, he has been changed from Lasix IV push to Bumex drip at 0.5 mg/hour Continue strict intake and output If his pressure cannot support continued Bumex drip, will consider albumin versus transfer to ICU for vasopressor support as he needs very aggressive diuresis at this time Holding off on GDMT for HFrEF as we are diuresing him and he is hypotensive. Will slowly add these drugs at a later time 06/02/2024: I am continuing Bumex drip at 0.5 mg/hour. His creatinine has increased to 1.7 from 1.5. I am continuing to watch daily BMPs as he is on nephrotoxic agents. Had a discussion with patient and sister at bedside, explaining the importance of cardiology follow-up as his reduced EF leaves him susceptible to sudden cardiac . I explained the plan for continued aggressive diuresis. (2) Cirrhosis: Impression: Cirrhosis with ascites Diagnostic paracentesis 05/26/2024 negative for malignant cells Diuresis as above (3) DM type 2 (diabetes mellitus, type 2): Impression: A1c 7.7 Upon pharmacy review, it appears he takes 5 units of Lantus at home not 6. Escalating SSI to moderate dose per nursing protocol, will update insulin regimen tomorrow
[2024-06-03 05:12] LABS: BASOPHILS % (AUTO) 0.5 %; EOSINOPHILS # (AUTO) 0.1 10^3/uL (0.0-0.7); EOSINOPHILS % (AUTO) 1.6 %; HCT - HEMATOCRIT 34.2 % (42.0-52.0); HGB - HEMOGLOBIN 11.3 g/dL (14.0-18.0); LYMPHOCYTES # (AUTO) 1.2 10^3/uL (1.5-3.5); LYMPHOCYTES % (AUTO) 16.2 %; MEAN CORPUSCULAR HEMOGLOBIN 28.9 pg (27.0-31.0); MEAN CORPUSCULAR VOLUME 87.5 fL (80.0-94.0); MONOCYTES # (AUTO) 0.5 10^3/uL (0.0-1.0); MONOCYTES % (AUTO) 6.9 %; NEUTROPHILS # (AUTO) 5.7 10^3/uL (1.5-6.6); NEUTROPHILS % (AUTO) 74.5 %; PLT - PLATELET COUNT 237 10^3/uL (130-450); RED BLOOD COUNT 3.91 10^6/uL (4.70-6.10); RED CELL DISTRIBUTION WIDTH 16.9 % (12.0-15.0); WHITE BLOOD COUNT 7.6 x10^3/uL (4.8-10.8)
[2024-06-03 05:28] LABS: CALCIUM 8.4 mg/dL (8.5-10.3); CREATININE 1.4 mg/dL (0.6-1.3); POTASSIUM 4.1 mmol/L (3.5-4.5)
[2024-06-03] MEDS: INSULIN GLARGINE-YFGN 300 UNIT/3 ML PEN SUBQ SCH (08:50)
--- NOTE | 2024-06-03 12:17 | PROVIDER PROGRESS NOTE ---
Subjective Prog Note Date Prog Note Date: 06/03/24 Subjective Pt reports feeling: Improved Subjective: Continues to feel better day by day Current Medications Current Medications Current Medications: Current Medications Generic Name Dose Route Start Last Admin Trade Name Freq PRN Reason Stop Dose Admin Acetaminophen 650 mg 05/31/24 16:57 Acetaminophen 325 Mg Tablet PO Q4HR PRN Pain 1 to 4, or Fever Amitriptyline HCl 75 mg 06/01/24 21:00 06/02/24 21:14 Amitriptyline 25 Mg Tablet PO 75 mg HS TODD Administration Atorvastatin Calcium 40 mg 06/01/24 21:00 06/02/24 21:15 Atorvastatin 40 Mg Tablet PO 40 mg QPM TODD Administration Enoxaparin Sodium 40 mg 06/01/24 09:00 06/03/24 08:46 Enoxaparin 40 Mg/0.4 Ml Syringe SUBQ 40 mg DAILY TODD Administration Bumetanide 10 mg/ Sodium 250 mls @ 12.5 mls/hr 06/01/24 08:00 06/03/24 02:05 Chloride IV 0.5 mg/hr .Q20H TODD 12.5 mls/hr Administration Protocol 0.5 MG/HR Insulin Glargine-yfgn 5 unit 06/03/24 08:00 06/03/24 08:50 Insulin Glargine-Yfgn 300 Unit/3 Ml Pen SUBQ 5 unit QDBREAKFAST TODD Administration Insulin Human Lispro 1 - 9 unit 06/01/24 21:00 06/03/24 08:47 Insulin Lispro 300 Unit/3 Ml Pen SUBQ Not Given 0800,1200,1700,2100 [facility] Protocol Insulin Human Lispro 2 unit 06/03/24 14:00 Insulin Lispro 300 Unit/3 Ml Pen SUBQ TID TODD Mirtazapine 15 mg 06/01/24 21:00 06/02/24 21:15 Mirtazapine 15 Mg Tablet PO 15 mg HS TODD Administration Ondansetron HCl 4 mg 05/31/24 16:57 Ondansetron Odt 4 Mg Tablet TL Q6HR PRN Nausea / Vomiting Ondansetron HCl 4 mg 05/31/24 16:57 Ondansetron 4 Mg/2 Ml Vial IVP Q6HR PRN Nausea / Vomiting Pantoprazole Sodium 40 mg 06/01/24 14:05 06/03/24 06:02 Pantoprazole 40 Mg Tablet PO 40 mg QDAC TODD Administration Sodium Chloride 10 ml 05/31/24 16:57 Sodium Chloride Flush 0.9% 10 Ml Syringe IVP PRN PRN NEEDED PER PROVIDER ORDERS Sodium Chloride 10 ml 05/31/24 17:00 06/03/24 08:48 Sodium Chloride Flush 0.9% 10 Ml Syringe IVP Not Given 0100,0900,1700 [facility] Objective Vital Signs/Intake & Output Reviewed Vital Signs: Yes Vital Signs: Vital Signs x48h Temp Pulse Resp BP Pulse Ox 06/03/24 11:52 36.5 C 87 20 117/75 95 06/03/24 08:31 36.5 C 87 18 109/73 93 06/03/24 04:59 36.6 C 96 18 106/75 94 Intake & Output: Intake & Output 05/31/24 06/01/24 06/02/24 06/03/24 23:59 23:59 23:59 23:59 Intake Total 400 / 400 1430 / 1430 1313 / 1313 182 / 182 Output Total 1150 / 1150 1150 / 1150 5150 / 5150 3125 / 3125 Balance -750 / -750 280 / 280 -3837 / -3837 -2943 / -2943 Weight (kg) 81.647 kg Objective General Appearance: positive No acute distress and Alert Eyes Bilateral: positive Normal inspection ENT: positive ENT inspection nml Neck: positive Nml inspection Respiratory: positive Chest non-tender Cardiovascular: positive Regular rate & rhythm Abdomen: positive Non-tender and Other (Edema improved) Skin: positive Color nml Extremities: positive Non-tender and Pedal edema (Improved from yesterday) Neurologic/Psychiatric: positive Oriented x3 Lab Results 06/03/24 04:47 06/03/24 04:47 Other Labs: Lab Results x24hrs 06/03/24 06/03/24 06/03/24 Range/Units 11:49 07:40 04:47 WBC 7.6 (4.8-10.8) x10^3/uL RBC 3.91 L (4.70-6.10) 10^6/uL Hgb 11.3 L (14.0-18.0) g/dL Hct 34.2 L (42.0-52.0) % MCV 87.5 (80.0-94.0) fL MCH 28.9 (27.0-31.0) pg MCHC 33.0 (32.0-36.0) g/dL RDW 16.9 H (12.0-15.0) % Plt Count 237 (130-450) 10^3/uL MPV 10.0 (7.4-11.4) fL Neut # (Auto) 5.7 (1.5-6.6) 10^3/uL Lymph # (Auto) 1.2 L (1.5-3.5) 10^3/uL [place] # (Auto) 0.5 (0.0-1.0) 10^3/uL Eos # (Auto) 0.1 (0.0-0.7) 10^3/uL Baso # (Auto) 0.0 (0.0-0.1) 10^3/uL Absolute Nucleated RBC 0.00 x10^3/uL Nucleated RBC % 0.0 /100WBC Sodium 140 (135-145) mmol/L Potassium 4.1 (3.5-4.5) mmol/L Chloride 99 L (101-111) mmol/L Carbon Dioxide 34 H (21-32) mmol/L Anion Gap 7.0 (6-13) BUN 39 H (6-20) mg/dL Creatinine 1.4 H (0.6-1.3) mg/dL Estimated GFR (MDRD) 50 L (>89) Glucose 126 H (74-104) mg/dL POC Whole Bld Glucose 245 130 (70-100) mg/dL Calcium 8.4 L (8.5-10.3) mg/dL 06/02/24 06/02/24 Range/Units 20:45 16:56 WBC (4.8-10.8) x10^3/uL RBC (4.70-6.10) 10^6/uL Hgb (14.0-18.0) g/dL Hct (42.0-52.0) % MCV (80.0-94.0) fL MCH (27.0-31.0) pg MCHC (32.0-36.0) g/dL RDW (12.0-15.0) % Plt Count (130-450) 10^3/uL MPV (7.4-11.4) fL Neut # (Auto) (1.5-6.6) 10^3/uL Lymph # (Auto) (1.5-3.5) 10^3/uL [place] # (Auto) (0.0-1.0) 10^3/uL Eos # (Auto) (0.0-0.7) 10^3/uL Baso # (Auto) (0.0-0.1) 10^3/uL Absolute Nucleated RBC x10^3/uL Nucleated RBC % /100WBC Sodium (135-145) mmol/L Potassium (3.5-4.5) mmol/L Chloride (101-111) mmol/L Carbon Dioxide (21-32) mmol/L Anion Gap (6-13) BUN (6-20) mg/dL Creatinine (0.6-1.3) mg/dL Estimated GFR (MDRD) (>89) Glucose (74-104) mg/dL POC Whole Bld Glucose 173 124 (70-100) mg/dL Calcium (8.5-10.3) mg/dL Assessment/Plan Problem List (1) Acute exacerbation of CHF (congestive heart failure): Impression: Echocardiogram performed today shows LVEF approximately 15 to 20%, severe dilation of right ventricle, mild mitral regurgitation, moderate to severe tricuspid regurgitation with pulmonary artery systolic pressure 46 mmHg Soft blood pressures overnight, he has been changed from Lasix IV push to Bumex drip at 0.5 mg/hour Continue strict intake and output If his pressure cannot support continued Bumex drip, will consider albumin versus transfer to ICU for vasopressor support as he needs very aggressive diuresis at this time Holding off on GDMT for HFrEF as we are diuresing him and he is hypotensive. Will slowly add these drugs at a later time 06/02/2024: I am continuing Bumex drip at 0.5 mg/hour. His creatinine has increased to 1.7 from 1.5. I am continuing to watch daily BMPs as he is on nephrotoxic agents. Had a discussion with patient and sister at bedside, explaining the importance of cardiology follow-up as his reduced EF leaves him susceptible to sudden cardiac . I explained the plan for continued aggressive diuresis. 06/03/2024: He has had 6 L urine output in the past day. His creatinine has gone from 1.7-1.4. I have ordered LALI marrero, and will be continuing the Bumex drip for at least another day with continued daily BMP to monitor for renal toxicity. Anticipate medical clearance in the next 1 to 2 days (2) Cirrhosis: Impression: Cirrhosis with ascites Diagnostic paracentesis 05/26/2024 negative for malignant cells Diuresis as above (3) DM type 2 (diabetes mellitus, type 2): Impression: A1c 7.7 Looking at his insulin trend, he has increased glucose levels during the day. I am restarting his home dose nutritional insulin 2 units with meals in addition to his sliding scale insulin
[2024-06-03] MEDS: INSULIN LISPRO 300 UNIT/3 ML PEN SUBQ SCH ×2 (12:18→16:54)
[2024-06-04 05:45] LABS: BASOPHILS # (AUTO) 0.1 10^3/uL (0.0-0.1); BASOPHILS % (AUTO) 0.8 %; EOSINOPHILS # (AUTO) 0.1 10^3/uL (0.0-0.7); EOSINOPHILS % (AUTO) 1.6 %; HCT - HEMATOCRIT 36.3 % (42.0-52.0); HGB - HEMOGLOBIN 11.8 g/dL (14.0-18.0); LYMPHOCYTES # (AUTO) 1.3 10^3/uL (1.5-3.5); LYMPHOCYTES % (AUTO) 15.3 %; MEAN CORPUSCULAR HEMOGLOBIN 28.2 pg (27.0-31.0); MEAN CORPUSCULAR HGB CONC 32.5 g/dL (32.0-36.0); MEAN CORPUSCULAR VOLUME 86.8 fL (80.0-94.0); MEAN PLATELET VOLUME 10.2 fL (7.4-11.4); MONOCYTES # (AUTO) 0.5 10^3/uL (0.0-1.0); MONOCYTES % (AUTO) 5.8 %; NEUTROPHILS # (AUTO) 6.5 10^3/uL (1.5-6.6); NEUTROPHILS % (AUTO) 76.3 %; PLT - PLATELET COUNT 255 10^3/uL (130-450); RED BLOOD COUNT 4.18 10^6/uL (4.70-6.10); RED CELL DISTRIBUTION WIDTH 16.6 % (12.0-15.0); WHITE BLOOD COUNT 8.6 x10^3/uL (4.8-10.8)
[2024-06-04 06:00] LABS: CALCIUM 8.4 mg/dL (8.5-10.3); CREATININE 1.3 mg/dL (0.6-1.3); POTASSIUM 4.1 mmol/L (3.5-4.5)
--- NOTE | 2024-06-04 17:32 | PROVIDER PROGRESS NOTE ---
Subjective Prog Note Date Prog Note Date: 06/04/24 Subjective Pt reports feeling: Improved Current Medications Current Medications Current Medications: Current Medications Generic Name Dose Route Start Last Admin Trade Name Freq PRN Reason Stop Dose Admin Acetaminophen 650 mg 05/31/24 16:57 Acetaminophen 325 Mg Tablet PO Q4HR PRN Pain 1 to 4, or Fever Amitriptyline HCl 75 mg 06/01/24 21:00 06/03/24 21:18 Amitriptyline 25 Mg Tablet PO 75 mg HS TODD Administration Atorvastatin Calcium 40 mg 06/01/24 21:00 06/03/24 21:18 Atorvastatin 40 Mg Tablet PO 40 mg QPM TODD Administration Enoxaparin Sodium 40 mg 06/01/24 09:00 06/04/24 09:11 Enoxaparin 40 Mg/0.4 Ml Syringe SUBQ 40 mg DAILY TODD Administration Furosemide 20 mg 06/05/24 09:00 Furosemide 20 Mg Tablet PO DAILY TODD Insulin Glargine-yfgn 5 unit 06/03/24 08:00 06/04/24 09:11 Insulin Glargine-Yfgn 300 Unit/3 Ml Pen SUBQ 5 unit QDBREAKFAST TODD Administration Insulin Human Lispro 1 - 9 unit 06/01/24 21:00 06/04/24 16:45 Insulin Lispro 300 Unit/3 Ml Pen SUBQ 1 unit 0800,1200,1700,2100 TODD Administration Protocol Insulin Human Lispro 2 unit 06/03/24 17:00 06/04/24 16:44 Insulin Lispro 300 Unit/3 Ml Pen SUBQ 2 unit TIDWM TODD Administration Protocol Mirtazapine 15 mg 06/01/24 21:00 06/03/24 21:18 Mirtazapine 15 Mg Tablet PO 15 mg HS TODD Administration Ondansetron HCl 4 mg 05/31/24 16:57 Ondansetron Odt 4 Mg Tablet TL Q6HR PRN Nausea / Vomiting Ondansetron HCl 4 mg 05/31/24 16:57 Ondansetron 4 Mg/2 Ml Vial IVP Q6HR PRN Nausea / Vomiting Pantoprazole Sodium 40 mg 06/01/24 14:05 06/04/24 06:13 Pantoprazole 40 Mg Tablet PO 40 mg QDAC TODD Administration Sodium Chloride 10 ml 05/31/24 16:57 Sodium Chloride Flush 0.9% 10 Ml Syringe IVP PRN PRN NEEDED PER PROVIDER ORDERS Sodium Chloride 10 ml 05/31/24 17:00 06/04/24 16:47 Sodium Chloride Flush 0.9% 10 Ml Syringe IVP 10 ml 0100,0900,1700 [facility] Administration Objective Vital Signs/Intake & Output Reviewed Vital Signs: Yes Vital Signs: Vital Signs x48h Temp Pulse Pulse Resp BP Pulse Ox 06/04/24 16:00 36.7 C 101 H 20 118/78 96 06/04/24 12:02 36.3 C L 88 16 115/75 93 Intake & Output: Intake & Output 06/01/24 06/02/24 06/03/24 06/04/24 23:59 23:59 23:59 23:59 Intake Total 1430 / 1430 1313 / 1313 1310 / 1310 686 / 686 Output Total 1150 / 1150 5150 / 5150 4400 / 4400 4675 / 4675 Balance 280 / 280 -3837 / -3837 -3090 / -3090 -3989 / -3989 Weight (kg) 70.987 kg Objective General Appearance: positive No acute distress and Alert Eyes Bilateral: positive Normal inspection ENT: positive ENT inspection nml Neck: positive Nml inspection Respiratory: positive Chest non-tender Cardiovascular: positive Regular rate & rhythm Abdomen: positive Non-tender and Other (Edema improved) Skin: positive Color nml Extremities: positive Non-tender and Pedal edema (Improved from yesterday) Neurologic/Psychiatric: positive Oriented x3 Lab Results 06/04/24 05:35 06/04/24 05:35 Other Labs: Lab Results x24hrs 06/04/24 06/04/24 06/04/24 Range/Units 16:33 11:32 07:45 WBC (4.8-10.8) x10^3/uL RBC (4.70-6.10) 10^6/uL Hgb (14.0-18.0) g/dL Hct (42.0-52.0) % MCV (80.0-94.0) fL MCH (27.0-31.0) pg MCHC (32.0-36.0) g/dL RDW (12.0-15.0) % Plt Count (130-450) 10^3/uL MPV (7.4-11.4) fL Neut # (Auto) (1.5-6.6) 10^3/uL Lymph # (Auto) (1.5-3.5) 10^3/uL [place] # (Auto) (0.0-1.0) 10^3/uL Eos # (Auto) (0.0-0.7) 10^3/uL Baso # (Auto) (0.0-0.1) 10^3/uL Absolute Nucleated RBC x10^3/uL Nucleated RBC % /100WBC Sodium (135-145) mmol/L Potassium (3.5-4.5) mmol/L Chloride (101-111) mmol/L Carbon Dioxide (21-32) mmol/L Anion Gap (6-13) BUN (6-20) mg/dL Creatinine (0.6-1.3) mg/dL Estimated GFR (MDRD) (>89) Glucose (74-104) mg/dL POC Whole Bld Glucose 159 247 111 (70-100) mg/dL Calcium (8.5-10.3) mg/dL 06/04/24 Range/Units 05:35 WBC 8.6 (4.8-10.8) x10^3/uL RBC 4.18 L (4.70-6.10) 10^6/uL Hgb 11.8 L (14.0-18.0) g/dL Hct 36.3 L (42.0-52.0) % MCV 86.8 (80.0-94.0) fL MCH 28.2 (27.0-31.0) pg MCHC 32.5 (32.0-36.0) g/dL RDW 16.6 H (12.0-15.0) % Plt Count 255 (130-450) 10^3/uL MPV 10.2 (7.4-11.4) fL Neut # (Auto) 6.5 (1.5-6.6) 10^3/uL Lymph # (Auto) 1.3 L (1.5-3.5) 10^3/uL [place] # (Auto) 0.5 (0.0-1.0) 10^3/uL Eos # (Auto) 0.1 (0.0-0.7) 10^3/uL Baso # (Auto) 0.1 (0.0-0.1) 10^3/uL Absolute Nucleated RBC 0.00 x10^3/uL Nucleated RBC % 0.0 /100WBC Sodium 140 (135-145) mmol/L Potassium 4.1 (3.5-4.5) mmol/L Chloride 96 L (101-111) mmol/L Carbon Dioxide 38 H (21-32) mmol/L Anion Gap 6.0 (6-13) BUN 39 H (6-20) mg/dL Creatinine 1.3 (0.6-1.3) mg/dL Estimated GFR (MDRD) 55 L (>89) Glucose 107 H (74-104) mg/dL POC Whole Bld Glucose (70-100) mg/dL Calcium 8.4 L (8.5-10.3) mg/dL Assessment/Plan Problem List (1) Acute exacerbation of CHF (congestive heart failure): Impression: Echocardiogram performed today shows LVEF approximately 15 to 20%, severe dilation of right ventricle, mild mitral regurgitation, moderate to severe tricuspid regurgitation with pulmonary artery systolic pressure 46 mmHg Soft blood pressures overnight, he has been changed from Lasix IV push to Bumex drip at 0.5 mg/hour Continue strict intake and output If his pressure cannot support continued Bumex drip, will consider albumin versus transfer to ICU for vasopressor support as he needs very aggressive diuresis at this time Holding off on GDMT for HFrEF as we are diuresing him and he is hypotensive. Will slowly add these drugs at a later time 06/02/2024: I am continuing Bumex drip at 0.5 mg/hour. His creatinine has increased to 1.7 from 1.5. I am continuing to watch daily BMPs as he is on nephrotoxic agents. Had a discussion with patient and sister at bedside, explaining the importance of cardiology follow-up as his reduced EF leaves him susceptible to sudden cardiac . I explained the plan for continued aggressive diuresis. 06/03/2024: He has had 6 L urine output in the past day. His creatinine has gone from 1.7-1.4. I have ordered LALI januarye, and will be continuing the Bumex drip for at least another day with continued daily BMP to monitor for renal toxicity. Anticipate medical clearance in the next 1 to 2 days 06/04/2024: 3500 mL net output in the past day. His legs look much better. I am discontinuing his Bumex drip and will transition him to oral Lasix starting tomorrow. Anticipate medical clearance tomorrow (2) Cirrhosis: Impression: Cirrhosis with ascites Diagnostic paracentesis 05/26/2024 negative for malignant cells Diuresis as above (3) DM type 2 (diabetes mellitus, type 2): Impression: A1c 7.7 I have increased his nutritional insulin to 3 units with meals plus sliding scale and a.m. Lantus
[2024-06-05 05:31] LABS: BASOPHILS # (AUTO) 0.1 10^3/uL (0.0-0.1); BASOPHILS % (AUTO) 0.6 %; EOSINOPHILS # (AUTO) 0.1 10^3/uL (0.0-0.7); EOSINOPHILS % (AUTO) 1.5 %; HCT - HEMATOCRIT 34.3 % (42.0-52.0); LYMPHOCYTES # (AUTO) 1.6 10^3/uL (1.5-3.5); LYMPHOCYTES % (AUTO) 19.3 %; MEAN CORPUSCULAR HGB CONC 32.1 g/dL (32.0-36.0); MEAN CORPUSCULAR VOLUME 87.3 fL (80.0-94.0); MEAN PLATELET VOLUME 10.1 fL (7.4-11.4); MONOCYTES # (AUTO) 0.5 10^3/uL (0.0-1.0); NEUTROPHILS % (AUTO) 72.2 %; PLT - PLATELET COUNT 265 10^3/uL (130-450); RED BLOOD COUNT 3.93 10^6/uL (4.70-6.10); RED CELL DISTRIBUTION WIDTH 16.7 % (12.0-15.0); WHITE BLOOD COUNT 8.3 x10^3/uL (4.8-10.8)
[2024-06-05 05:44] LABS: CALCIUM 8.5 mg/dL (8.5-10.3); CREATININE 1.4 mg/dL (0.6-1.3); POTASSIUM 4.1 mmol/L (3.5-4.5)
[2024-06-05] MEDS: INSULIN LISPRO 300 UNIT/3 ML PEN SUBQ SCH (08:17)
[2024-06-05] MEDS: FUROSEMIDE 20 MG TABLET PO SCH (08:18)
[2024-06-05] MEDS: lisinopriL 5 MG TABLET PO SCH (08:19)
[2024-06-05] MEDS: SPIRONOLACTONE 25 MG TABLET PO SCH (08:19)
[2024-06-05] MEDS: METOPROLOL SUCCINATE 25 MG TABLET PO SCH (09:15)
--- NOTE | 2024-06-05 11:52 | Discharge Summary ---
Discharge Summary Admit Date: 05/31/24 Discharge Date: 06/05/24 Discharging Provider: Lalo Almonte NP Primary Care Provider: Jena Hoffman Code Status: Do Not Attempt Resuscitation DIAGNOSES Admission Diagnoses: Acute exacerbation of CHF Cirrhosis Diabetes type 2 Discharge Diagnoses with Status of Each Condition: Acute exacerbation of CHFEF 15 to 20%, received aggressive diuresis and is discharging with new Lasix and GDMT Cirrhosisdiuretics Diabetes type 2continue metformin, increasing insulin regimen to 5 units Lantus, 3 units 3 times daily nutritional insulin and moderate sliding scale insulin HPI History of Present Illness: 68-year-old male PMH CHF, diabetes, CKD, unsure stage, cirrhosis experienced a ground-level fall onto his left knee and was unable to get up due to generalized weakness. He was seen recently by PCP, where he underwent paracentesis. He has had BLE swelling over the past few weeks which is gradually been worsening. In the ER, he was noted to have creatinine 1.6. BNP 1286. He had significant swelling in his legs all the way up to the level of his abdomen, so hospitalist was contacted for admission for CHF exacerbation/anasarca HOSPITAL COURSE Hospital Course: Patient was admitted into the hospital and underwent echocardiogram which showed afternoon EF of 15 to 20%. His blood pressure could not tolerate IV push diuresis, so he was placed on a Bumex drip with good effect. Today, he is feeling much better. Physical therapy recommends facility placement for ongoing therapy. He will need rapid follow-up with PCP and to establish himself with a home office claims examiner for AICD placement ALLERGIES Allergies Allergy/AdvReac Type Severity Reaction Status Date / Time desipramine AdvReac Severe vivid dream Verified 05/31/24 11:48 drospirenone AdvReac Severe Unknown Verified 05/31/24 11:48 lithium AdvReac Severe shakes Verified 05/31/24 11:48 sertraline (From Zoloft) AdvReac Severe suicidal Verified 05/31/24 11:48 Tetracyclines AdvReac Severe Nausea Verified 05/31/24 11:48 trazodone AdvReac Severe "zombie" Verified 05/31/24 11:48 selective serotonin reuptake Allergy Severe Hallucinati Uncoded 05/31/24 11:48 inhibitors (SSRIs) ons MEDICATIONS Ambulatory Orders Medication Instructions Recorded Confirmed amitriptyline 75 mg tablet 75 mg PO HS 11/09/22 05/31/24 mirtazapine 15 mg tablet 15 mg PO HS 11/09/22 05/31/24 atorvastatin 40 mg tablet 40 mg PO QDAY 01/10/24 05/31/24 blood sugar diagnostic (True 01/10/24 05/24/24 Metrix Glucose Test Strip) blood-glucose sensor (FreeStyle 01/10/24 05/24/24 Nitin 3 Plus Sensor device) lancets 33 gauge (TRUEplus Lancets) 01/10/24 05/24/24 metformin 1,000 mg tablet 1,000 mg PO BID 01/10/24 05/31/24 pen needle, diabetic 31 gauge x 01/10/24 05/24/24 5/16" (Pen Needle) insulin glargine 100 unit/mL (3 5 unit subcut QAM 03/28/24 06/01/24 mL) subcutaneous pen (Lantus Solostar U-100 Insulin) omeprazole 20 mg capsule,delayed 20 mg PO QDAY #30 caps 03/28/24 05/31/24 release furosemide 20 mg tablet 20 mg PO DAILY 30 days #30 tabs 06/05/24 insulin lispro 100 unit/mL 1 - 9 unit (0.01 - 0.09 mL) subcut 06/05/24 subcutaneous pen (Humalog KwikPen 0800,1200,1700,2100 30 days #15 mL (U-100) Insulin) insulin lispro 100 unit/mL 3 unit (0.03 mL) subcut TID 30 06/05/24 06/01/24 subcutaneous pen (Humalog KwikPen days #0 mL (U-100) Insulin) metoprolol succinate 25 mg 25 mg PO DAILY 30 days #30 tabs 06/05/24 tablet,extended release 24 hr sacubitril 24 mg-valsartan 26 mg 1 tab PO BID #60 tabs 06/05/24 tablet (Entresto) spironolactone 25 mg tablet 25 mg PO DAILY 30 days #30 tabs 06/05/24 PHYSICAL EXAM AT DISCHARGE Vital Signs: Vital Signs x48h Temp Pulse Resp BP Pulse Ox 06/05/24 08:58 36.6 C 93 18 111/75 06/05/24 05:04 36.7 C 91 18 102/67 92 General Appearance: positive No acute distress and Alert Eyes Bilateral: positive Normal inspection ENT: positive ENT inspection nml Neck: positive Nml inspection Respiratory: positive Chest non-tender Cardiovascular: positive Regular rate & rhythm Peripheral Pulses: positive 2+ Abdomen: positive Non-tender Back: positive Nml inspection Skin: positive Color nml and Other (Abrasions on legs) Extremities: positive Non-tender and Pedal edema (Much improved, LALI hose in place) Neurologic/Psychiatric: positive Oriented x3 LABS 06/05/24 05:09 06/05/24 05:09 FOLLOW UP Follow Up: With PCP, cardiology TIME SPENT Time Spent in Discharge (Minutes): 40 Discharge Plan Discharge Patient Disposition: [facility] DC/Xfer Condition: Good Medically Cleared Date:: 06/05/24 Prescriptions: New furosemide 20 mg Tablet 20 mg PO DAILY 30 Days Qty: 30 0RF metoprolol succinate 25 mg Tablet Extended Release 24 Hr 25 mg PO DAILY 30 Days Qty: 30 0RF Entresto 24-26 mg tablet 1 tab PO BID Qty: 60 2RF spironolactone 25 mg Tablet 25 mg PO DAILY 30 Days Qty: 30 0RF insulin lispro [Humalog KwikPen Insulin] 100 unit/mL Insulin Pen 1 - 9 unit subcut 0800,1200,1700,2100 30 Days Qty: 15 0RF Rx Instructions: Give this in addition to scheduled mealtime insulin based on the following parameters: BLOOD GLUCOSE UNITS 141 - 180 1 181 - 225 3 226 - 275 5 276 - 325 7 326 - 375 9 >375 Contact MD Continued amitriptyline 75 MG tablet 75 mg PO HS Patient Comments: Take 1 tablet by mouth at bedtime mirtazapine 15 MG tablet 15 mg PO HS Patient Comments: TAKE 1 TABLET BY MOUTH AT BEDTIME atorvastatin 40 mg tablet 40 mg PO QDAY Patient Comments: TAKE 1 TABLET BY MOUTH ONCE DAILY metformin 1,000 mg tablet 1,000 mg PO BID Patient Comments: TAKE 1 TABLET BY MOUTH TWICE DAILY insulin glargine [Lantus Solostar U-100 Insulin] 100 unit/mL (3 mL) insulin pen 5 unit subcut QAM Patient Comments: Pt states using 6 UNITS SUBCUTANEOUSLY once daily (DME) FreeStyle Nitin 3 Plus Sensor Device See Rx Instructions .Route Rx Instructions: As directed (DME) pen needle, diabetic [Pen Needle] 31 gauge x 5/16" needle See Rx Instructions .Route Rx Instructions: As directed (DME) True Metrix Glucose Test Strip Strip See Rx Instructions .Route Rx Instructions: As directed (DME) lancets [TRUEplus Lancets] 33 gauge misc See Rx Instructions .Route Rx Instructions: As directed omeprazole 20 mg capsule,delayed release(DR/EC) 20 mg PO QDAY Qty: 30 11RF Changed insulin lispro [Humalog KwikPen Insulin] 100 unit/mL insulin pen 3 unit subcut TID 30 Days Qty: 0 0RF Patient Comments: INJECT 2 UNITS SUBCUTANEOUSLY THREE TIMES DAILY WITH MEALS Discontinued furosemide 20 mg tablet 20 mg PO ONCE MDD 20 mg PRN (Reason: edema) Patient Comments: Pt states taking 20mg once daily, every day spironolactone 100 mg tablet 100 mg PO QAM Qty: 30 5RF Activity Restrictions: Activity as Tolerated Diet: Diabetic Health Concerns: He came into the hospital with severe fluid overload. You are brought into the hospital and started on aggressive IV diuresis with a Bumex drip. Echocardiogram was performed which shows an EF of 15 to 20%. I have optimized your heart failure as best I can, I need you to follow-up with home office claims examiner regarding defibrillator placement and ongoing management. I am adding a diuretic at discharge. You have had this once before, but I would like for you to take Lasix 20 mg once a day until otherwise directed. I am also increasing your mealtime insulin to 3 units with meals plus sliding scale. Your glucose levels will be checked at the next facility and they will provide updated recommendations from there. Please follow-up with your primary care provider after all is done Print Language: Icelandic Patient Instructions: Heart Failure Dc Stand Alone Forms: SNF Discharge, PCP List Follow-up Care: Jena Hoffman ARNP [Primary Care Provider] -
[2024-06-05 13:07] VITALS: BP 108/72; TEMP 97.3; O2SAT 98
== END 2024-06-05 13:00 | DRG 291 ==
LOC: ED 11:31 → MS2 14:49
PROVIDERS: ADMIT Nurse Practitioner Acute Care; ATTEND Nurse Practitioner Acute Care